=== PATIENT | female | born 1970 | race Caucasian/White ===

== ENCOUNTER 2018-01-26 11:12 | Emergency (ER) | payer MEDICARE, OTHER ==
[~2018-01-26] VITALS: Ht 149.9 cm; Wt 50.0 kg
[~2018-01-26 11:12] MED LIST: AMIT25 PO; AMLO5 PO; CLON.5 PO; GABA300 PO; METO10TA PO; PANT20 PO; VENL75XR PO
[2018-01-26 11:35] VITALS: BP 129/79; PULSE 94; RESP 18; TEMP 98.4; O2SAT 100
[2018-01-26] MEDS ORDERED: HYDR5TAB64 PO (15:30)
[2018-01-26] MEDS ORDERED: LORA1TAB12 PO (15:30)
[2018-01-26] MEDS ORDERED: METO1TAB9 PO (15:30)
[2018-01-26] MEDS ORDERED: DIVA250ER PO (15:30)
[2018-01-26] MEDS ORDERED: HYDR-3583 PO (15:30)
[2018-01-26] MEDS ORDERED: LEXA20TA PO (15:30)
[2018-01-26] MEDS ORDERED: DILA100C PO (15:30)
[2018-01-26] MEDS ORDERED: BUTA1CAP PO (15:30)
[2018-01-26] MEDS ORDERED: AMLO10TA2 PO (15:30)
[2018-01-26 15:32] VITALS: BP 144/83; PULSE 97; RESP 16; O2SAT 100
[2018-01-26] MEDS ORDERED: SODIUM CHLOR 0.9% 1000 ML INJ 1,000 ML IV ONE (15:37)
[2018-01-26] MEDS ORDERED: SODIUM CHLORIDE 0.9% FLUSH 10 ML FLUSH IVF PRN (15:45)
[2018-01-26] MEDS ORDERED: diphenhydrAMINE HCL 50 MG/ML VIAL IVP ONE (15:45)
[2018-01-26] MEDS ORDERED: KETOROLAC TROMETHAMINE 30 MG/ML (IVP) VIAL IVP ONE (15:45)
[2018-01-26] MEDS ORDERED: METOCLOPRAMIDE HCL 10 MG/2 ML VIAL IVP ONE (15:45)
--- NOTE | 2018-01-26 15:52 | PD ---
HPI Chief Complaint: Headache Time Seen by Provider: 15:28 Travel History International Travel<30 days: No Contact w/Intl Traveler<30days: No Traveled to known affect area: No History of Present Illness HPI Patient is a 47-year-old female presents emergency department for evaluation of headache with vomiting 2 days. Patient states she has a history of headaches in similar, she states she has been taking her Fioricet at home, this has not been providing any relief. She is also on Depakote and phenytoin for seizure disorder. States is not a thunderclap presentation no radiation down her neck, no focalized weakness no visual difficulties. States symptoms are moderate, similar to any other headache she is ever had, associated signs and symptoms context as above PFSH Past Medical History Hx Anticoagulant Therapy: Yes (PLAVIX) Asthma: No Blood Disorders: No Bipolar Disorder: Yes Anxiety: Yes Depression: Yes Heart Rhythm Problems: No Cancer: Yes (ovarian in 2002) Cardiovascular Problems: Yes High Cholesterol: No Chemotherapy: No Chest Pain: No Congestive Heart Failure: No Cerebrovascular Accident: Yes (TIA 2006, 2008) Diabetes: No Diminished Hearing: No Endocrine: No Genitourinary: No Headaches: Yes (Patient reports "severe headaches") Hypertension: Yes Insomnia: Yes Musculoskeletal: Yes Neurologic: Yes Psychiatric: Yes (PTSD , BIPOLAR DISORDER) Reproductive: Yes Respiratory: No Immunizations Current: Yes Migraines: Yes Radiation Therapy: No Seizures: Yes (History is noted in medical records.) Thyroid Disease: No ?: Not Menopausal: Yes : 3 Para: 2 Miscarriage: 1 : 0 Tubal Ligation: Yes Past Surgical History AICD: No Section: Yes (x1) Cholecystectomy: Yes Ear Surgery: Yes (Tumor left side - 1985; Reconstructed right side - 1989) Gynecologic Surgery: Yes (HYSTERECTOMY) Hysterectomy: Yes (2004) Other Surgery: Yes (SEE MEDICAL RECORD) Social History Alcohol Use: No Tobacco Use: Yes Substance Use: Yes (did not specify) Allergies-Medications (Allergen,Severity, Reaction): Coded Allergies: penicillin G (Unverified Allergy, Severe, Rash, 01/26/18) Per pt. tramadol (Unverified Allergy, Severe, Hives, 01/26/18) sulfamethoxazole (Verified Allergy, Unknown, Hives, 01/26/18) trimethoprim (Verified Allergy, Unknown, Hives, 01/26/18) Reported Meds & Prescriptions Reported Meds & Active Scripts Active Reported Hydrocodone-Acetamin 10-325 mg (Hydrocodone/Acetaminophen) 10 Mg-325 Mg Tablet 1 Tab PO QID Fioricet (Ujhgdgiheo-Pfipmtohkkaah-Kxjzttkl) 50-300-40 Mg Cap 2 Cap PO Q4H PRN Hydrocortisone 5 Mg Tab 5 Mg PO TID Take with food to decrease GI upset Depakote ER (Divalproex Sodium) 250 Mg Tigist 250 Mg PO DAILY Dilantin (Phenytoin Extended) 100 Mg Cap 100 Mg PO TID Metoprolol Succinate ER 24 HR (Metoprolol Succinate) 50 Mg Tab 50 Mg PO DAILY Amlodipine (Amlodipine Besylate) 10 Mg Tab 10 Mg PO DAILY Lorazepam 1 Mg Tab 1 Mg PO BID PRN Lexapro (Escitalopram Oxalate) 20 Mg Tab 20 Mg PO DAILY Review of Systems Except as stated in HPI: all other systems reviewed are Neg Physical Exam Narrative GENERAL: 24-year-old female well-developed well-nourished no obvious distress. SKIN: Focused skin assessment warm/dry. HEAD: Atraumatic. Normocephalic. EYES: Pupils equal and round. No scleral icterus. No injection or drainage. Funduscopy normal bilaterally. ENT: No nasal bleeding or discharge. Mucous membranes pink and moist. NECK: Trachea midline. No JVD. CARDIOVASCULAR: Regular rate and rhythm. No murmur appreciated. RESPIRATORY: No accessory muscle use. Clear to auscultation. Breath sounds equal bilaterally. GASTROINTESTINAL: Abdomen soft, non-tender, nondistended. Hepatic and splenic margins not palpable. MUSCULOSKELETAL: No obvious deformities. No clubbing. No cyanosis. No edema. NEUROLOGICAL: Awake and alert. Cranial nerves II through XII are grossly intact and nonfocal 5 out of 5 strength in all 4 extremities, cerebellar testing negative. PSYCHIATRIC: Appropriate mood and affect; insight and judgment normal. Data Data Last Documented VS Vital Signs Date Time Temp Pulse Resp B/P (MAP) Pulse Ox O2 Delivery O2 Flow Rate FiO2 01/26/18 19:03 01/26/18 15:32 97 16 100 Room Air 01/26/18 11:35 98.4 Orders Orders Complete Blood Count With Diff (01/26/18 15:37) Basic Metabolic Panel (Bmp) (01/26/18 15:37) Phenytoin (Dilantin) (01/26/18 15:37) Valproic Acid (Depakene) (01/26/18 15:37) Ecg Monitoring (01/26/18 15:37) Iv Access Insert/Monitor (01/26/18 15:37) Oximetry (01/26/18 15:37) Sodium Chloride 0.9% Flush (Ns Flush) (01/26/18 15:45) Ketorolac Inj (Toradol Inj) (01/26/18 15:45) Diphenhydramine Inj (Benadryl Inj) (01/26/18 15:45) Metoclopramide Inj (Reglan Inj) (01/26/18 15:45) Sodium Chlor 0.9% 1000 Ml Inj (Ns 1000 M (01/26/18 15:37) Ct Brain W/O Iv Contrast(Rout) (01/26/18 ) Ed Discharge Order (01/26/18 18:41) Labs Laboratory Tests Test 01/26/18 15:55 White Blood Count 8.2 TH/MM3 Red Blood Count 4.59 MIL/MM3 Hemoglobin 14.3 GM/DL Hematocrit 41.9 % Mean Corpuscular Volume 91.2 FL Mean Corpuscular Hemoglobin 31.2 PG Mean Corpuscular Hemoglobin Concent 34.3 % Red Cell Distribution Width 13.9 % Platelet Count 366 TH/MM3 Mean Platelet Volume 8.2 FL Neutrophils (%) (Auto) 57.7 % Lymphocytes (%) (Auto) 32.5 % Monocytes (%) (Auto) 7.5 % Eosinophils (%) (Auto) 0.9 % Basophils (%) (Auto) 1.4 % Neutrophils # (Auto) 4.8 TH/MM3 Lymphocytes # (Auto) 2.7 TH/MM3 Monocytes # (Auto) 0.6 TH/MM3 Eosinophils # (Auto) 0.1 TH/MM3 Basophils # (Auto) 0.1 TH/MM3 CBC Comment DIFF FINAL Differential Comment Blood Urea Nitrogen 6 MG/DL Creatinine 0.83 MG/DL Random Glucose 91 MG/DL Calcium Level 9.7 MG/DL Sodium Level 141 MEQ/L Potassium Level 4.5 MEQ/L Chloride Level 106 MEQ/L Carbon Dioxide Level 25.6 MEQ/L Anion Gap 9 MEQ/L Estimat Glomerular Filtration Rate 74 ML/MIN Phenytoin (Dilantin) Level 14.5 MCG/ML Valproic Acid (Depakene) Level 62 MCG/ML [facility] Medical Decision Making Medical Screen Exam Complete: Yes Emergency Medical Condition: Yes Differential Diagnosis Headache, migraine, cluster headache, acute intracranial abnormality highly unlikely per Narrative Course Patient room to the emergency department, CT head negative, she was given pain medication is starting to feel better. Albeit she still has some headache. She was offered a lumbar puncture and after discussion of the risk benefits competitions and alternatives the patient declined at this time. Discussed need follow-up with a neurologist. Discussed symptomatic management and return to ED criteria. She stable for discharge Diagnosis Primary Impression: Headache Disposition: 01 DISCHARGE HOME Condition: Stable Zoltan Garsia MD Jan 26, 2018 15:52
[2018-01-26 16:24] LABS: AUTOMATED NEUTROPHIL # 4.8 TH/MM3 (1.8-7.7); BASOPHIL # 0.1 TH/MM3 (0-0.2); BASOPHIL % 1.4 % (0.0-2.0); EOSINOPHIL # 0.1 TH/MM3 (0-0.4); EOSINOPHIL % 0.9 % (0.0-4.0); HEMATOCRIT 41.9 % (35.0-46.0); HEMOGLOBIN 14.3 GM/DL (11.6-15.3); LYMPH % 32.5 % (9.0-44.0); LYMPHOCYTE # 2.7 TH/MM3 (1.0-4.8); MEAN CELL VOLUME 91.2 FL (80.0-100.0); MEAN CORPUSCULAR HEMOGLOBIN 31.2 PG (27.0-34.0); MEAN CORPUSCULAR HGB CONC 34.3 % (32.0-36.0); MEAN PLATELET VOLUME 8.2 FL (7.0-11.0); MONO % 7.5 % (0.0-8.0); MONOCYTE # 0.6 TH/MM3 (0-0.9); NEUT % 57.7 % (16.0-70.0); PLATELET COUNT 366 TH/MM3 (150-450); RED BLOOD COUNT 4.59 MIL/MM3 (4.00-5.30); RED CELL DISTRIBUTION WIDTH 13.9 % (11.6-17.2); WHITE BLOOD COUNT 8.2 TH/MM3 (4.0-11.0)
[2018-01-26 16:52] LABS: BICARBONATE 25.6 MEQ/L (21.0-32.0); CALCIUM 9.7 MG/DL (8.5-10.1); CREATININE 0.83 MG/DL (0.50-1.00); PHENYTOIN (DILANTIN) 14.5 MCG/ML (10.0-20.0)
--- NOTE | 2018-01-26 18:57 | RADRPT ---
EXAM DATE/TIME: 01/26/2018 18:33 [facility] COMPARISON: CT BRAIN W/O CONTRAST, January 19, 2016, 15:58. INDICATIONS : Headache X 6 days. RADIATION DOSE: 49.67 CTDIvol (mGy) MEDICAL HISTORY : Seizures. Hypertension. Cardiovascular diseaseCVA SURGICAL HISTORY : Hysterectomy. Cholecystectomy. ENCOUNTER: Initial ACUITY: 1 day PAIN SCALE: 7/10 LOCATION: cranial TECHNIQUE: Multiple contiguous axial images were obtained of the head. Using automated exposure control and adj ustment of the mA and/or kV according to patient size, radiation dose was kept as low as reasonably a chievable to obtain optimal diagnostic quality images. DICOM format image data is available electro nically for review and comparison. FINDINGS: CEREBRUM: The ventricles are normal for age. No evidence of midline shift, mass lesion, hemorrhage or acute in farction. No extra-axial fluid collections are seen. POSTERIOR FOSSA: The cerebellum and brainstem are intact. The 4th ventricle is midline. The cerebellopontine angle i s unremarkable. EXTRACRANIAL: The visualized portion of the orbits is intact. SKULL: The calvaria is intact. No evidence of skull fracture. CONCLUSION: 1. No acute findings. Remote small lacunar infarcts right basal ganglia. Rj Greer MD on January 26, 2018 at 18:53 Board Certified Radiologist. This report was verified electronically.
== END 2018-01-26 19:22 | disposition home or self-care (01) ==
LOC: NEPD 11:12
DX: R51 Headache (principal); I10 Essential (primary) hypertension; G40.909 Epilepsy, unspecified, not intractable, without status epilepticus; F31.9 Bipolar disorder, unspecified; F41.9 Anxiety disorder, unspecified; G47.00 Insomnia, unspecified; F19.90 Other psychoactive substance use, unspecified, uncomplicated; Z72.0 Tobacco use; Z86.73 Personal history of transient ischemic attack (TIA), and cerebral infarction without residual deficits
CPT/HCPCS: 70450; 80048; 80164; 80185; 85025; 96374; 96375; 99284; J1200; J1885; J2765; J7030

== ENCOUNTER 2018-03-10 12:06 | Observation (INO) | payer OTHER, MEDICAID ==
[~2018-03-10] VITALS: Ht 149.9 cm; Wt 50.5 kg
[~2018-03-10 12:06] MED LIST changes: -AMIT25 PO; +AMLO10TA2 PO; -AMLO5 PO; +BUTA1CAP PO; -CLON.5 PO; +DILA100C PO; +DIVA250ER PO; -GABA300 PO; +HYDR-3583 PO; +HYDR5TAB64 PO; +LEXA20TA PO; +LORA1TAB12 PO; -METO10TA PO; +METO1TAB9 PO; -PANT20 PO; -VENL75XR PO
[2018-03-10 12:20] VITALS: BP 118/58; PULSE 90; RESP 16; TEMP 98.2; O2SAT 100
[2018-03-10] MEDS ORDERED: LEVE500 PO ×2 (12:37)
[2018-03-10] MEDS ORDERED: AMIT50TA3 PO ×2 (12:37)
--- NOTE | 2018-03-10 12:44 | PD ---
HPI Chief Complaint: Headache Time Seen by Provider: 12:25 Travel History International Travel<30 days: No Contact w/Intl Traveler<30days: No Traveled to known affect area: No History of Present Illness HPI 47-year-old female with history of CVA, seizure disorder, hypertension, presents to the emergency department for evaluation of a headache 4 days 2 days. Patient is on Plavix. She denies any head trauma. Patient states that he has been generalized but is now associated with nausea. She has developed a right sided weakness which she states she had with her previous stroke but had improvement. She states now her right lower extremity is very weak and she is having to. She also reports a history of the right upper extremity. Headache is constant, throbbing severe. Denies any chest pain or tightness. Denies any recent illnesses, fever, chills. She has no other symptoms to report. PFSH Past Medical History Hx Anticoagulant Therapy: Yes (PLAVIX) Asthma: No Blood Disorders: No Bipolar Disorder: Yes Anxiety: Yes Depression: Yes Heart Rhythm Problems: No Cancer: Yes (ovarian in 2002) Cardiovascular Problems: Yes High Cholesterol: No Chemotherapy: No Chest Pain: No Congestive Heart Failure: No Diabetes: No Diminished Hearing: Yes (bilateral hearing aids) Endocrine: No Genitourinary: No Headaches: Yes (Patient reports "severe headaches") Hypertension: Yes Insomnia: Yes Medical other: Yes (adrenal deficiency) Musculoskeletal: Yes Neurologic: Yes Psychiatric: Yes (PTSD , BIPOLAR DISORDER) Reproductive: Yes Respiratory: No Immunizations Current: Yes Migraines: Yes Radiation Therapy: No Seizures: Yes (History is noted in medical records.) Thyroid Disease: Yes ("nodule on thyroid") Influenza Vaccination: No ?: Not Menopausal: Yes : 3 Para: 2 Miscarriage: 1 : 0 Tubal Ligation: Yes Past Surgical History AICD: No Section: Yes (x1) Cholecystectomy: Yes Ear Surgery: Yes (Tumor left side - 1985; Reconstructed right side - 1989) Gynecologic Surgery: Yes (HYSTERECTOMY) Hysterectomy: Yes (2004) Other Surgery: Yes (SEE MEDICAL RECORD) Social History Alcohol Use: No Tobacco Use: No Substance Use: Yes (did not specify) Allergies-Medications (Allergen,Severity, Reaction): Coded Allergies: penicillin G (Unverified Allergy, Severe, Rash, 03/10/18) Per pt. tramadol (Unverified Allergy, Severe, Hives, 03/10/18) sulfamethoxazole (Verified Allergy, Unknown, Hives, 03/10/18) trimethoprim (Verified Allergy, Unknown, Hives, 03/10/18) Reported Meds & Prescriptions Reported Meds & Active Scripts Active Reported Nitroglycerin SL (Nitroglycerin) 0.4 Mg Subl 0.4 Mg SL DIRECTED PRN ONE TABLET UNDER THE TONGUE NEEDED FOR CHEST PAIN, MAY REPEAT EVERY FIVE MINUTES FOR A TOTAL OF 3 DOSES OR CALL 911 IF NO RELIEF Aspirin Low Dose (Aspirin) 81 Mg Chew 81 Mg CHEW DAILY Plavix (Clopidogrel Bisulfate) 75 Mg Tab 75 Mg PO DAILY Keppra (Levetiracetam) 500 Mg Tab 500 Mg PO TID Amitriptyline (Amitriptyline HCl) 50 Mg Tab 50 Mg PO TID Hydrocodone-Acetamin 10-325 mg (Hydrocodone/Acetaminophen) 10 Mg-325 Mg Tablet 1 Tab PO QID Fioricet (Zdajcijhdl-Enzjkvmsinkpv-Tpvtazws) 50-300-40 Mg Cap 2 Cap PO Q4H PRN Hydrocortisone 5 Mg Tab 5 Mg PO TID Take with food to decrease GI upset Metoprolol Succinate ER 24 HR (Metoprolol Succinate) 50 Mg Tab 50 Mg PO DAILY Amlodipine (Amlodipine Besylate) 10 Mg Tab 10 Mg PO DAILY Lorazepam 1 Mg Tab 1 Mg PO BID PRN Lexapro (Escitalopram Oxalate) 20 Mg Tab 20 Mg PO DAILY Review of Systems Except as stated in HPI: all other systems reviewed are Neg Physical Exam Narrative GENERAL: Well-nourished female patient in no acute distress SKIN: Focused skin assessment warm/dry. HEAD: Atraumatic. Normocephalic. EYES: Pupils equal and round. EOMI no scleral icterus. No injection or drainage. ENT: No nasal bleeding or discharge. Mucous membranes pink and moist. NECK: Trachea midline. No JVD. No cervical spine tenderness CARDIOVASCULAR: Regular rate and rhythm. No murmur appreciated. RESPIRATORY: No accessory muscle use. Clear to auscultation. Breath sounds equal bilaterally. GASTROINTESTINAL: Abdomen soft, non-tender, nondistended. Hepatic and splenic margins not palpable. MUSCULOSKELETAL: No obvious deformities. No clubbing. No cyanosis. No edema. 3 out of 5 strength right lower extremity, 4 out of 5 right upper extremity. 5 + strength left upper and lower extremity. Negative pronator drift. NEUROLOGICAL: Awake and alert. No obvious cranial nerve deficits. Motor grossly within normal limits. Normal speech. PSYCHIATRIC: Appropriate mood and affect; insight and judgment normal. Data Data Last Documented VS Vital Signs Date Time Temp Pulse Resp B/P (MAP) Pulse Ox O2 Delivery O2 Flow Rate FiO2 03/10/18 12:20 98.2 90 16 118/58 (78) [address] Brain W/O Iv Contrast(Rout) (03/10/18 ) Electrocardiogram (03/10/18 12:42) Prothrombin Time / Inr (Pt) (03/10/18 12:42) Act Partial Throm Time (Ptt) (03/10/18 12:42) Complete Blood Count With Diff (03/10/18 12:42) Comprehensive Metabolic Panel (03/10/18 12:42) Ecg Monitoring (03/10/18 12:42) Iv Access Insert/Monitor (03/10/18 12:42) Oximetry (03/10/18 12:42) Morphine Inj (Morphine Inj) (03/10/18 12:45) Ondansetron Inj (Zofran Inj) (03/10/18 12:45) Sodium Chloride 0.9% Flush (Ns Flush) (03/10/18 12:45) Ketorolac Inj (Toradol Inj) (03/10/18 14:45) Admit Order (Ed Use Only) (03/10/18 15:45) Labs Laboratory Tests Test 03/10/18 12:43 White Blood Count 7.1 TH/MM3 Red Blood Count 4.30 MIL/MM3 Hemoglobin 13.2 GM/DL Hematocrit 38.6 % Mean Corpuscular Volume 89.8 FL Mean Corpuscular Hemoglobin 30.7 PG Mean Corpuscular Hemoglobin Concent 34.2 % Red Cell Distribution Width 13.4 % Platelet Count 273 TH/MM3 Mean Platelet Volume 8.2 FL Neutrophils (%) (Auto) 51.7 % Lymphocytes (%) (Auto) 35.9 % Monocytes (%) (Auto) 9.0 % Eosinophils (%) (Auto) 2.3 % Basophils (%) (Auto) 1.1 % Neutrophils # (Auto) 3.7 TH/MM3 Lymphocytes # (Auto) 2.6 TH/MM3 Monocytes # (Auto) 0.6 TH/MM3 Eosinophils # (Auto) 0.2 TH/MM3 Basophils # (Auto) 0.1 TH/MM3 CBC Comment DIFF FINAL Differential Comment Prothrombin Time 10.3 SEC Prothromb Time International Ratio 1.0 RATIO Activated Partial Thromboplast Time 19.8 SEC Blood Urea Nitrogen 12 MG/DL Creatinine 0.87 MG/DL Random Glucose 85 MG/DL Total Protein 7.4 GM/DL Albumin 4.2 GM/DL Calcium Level 8.5 MG/DL Alkaline Phosphatase 89 U/L Aspartate Amino Transf (AST/SGOT) 138 U/L Alanine Aminotransferase (ALT/SGPT) 119 U/L Total Bilirubin 0.3 MG/DL Sodium Level 144 MEQ/L Potassium Level 4.2 MEQ/L Chloride Level 110 MEQ/L Carbon Dioxide Level 24.4 MEQ/L Anion Gap 10 MEQ/L Estimat Glomerular Filtration Rate 70 ML/MIN [facility] Medical Decision Making Medical Screen Exam Complete: Yes Emergency Medical Condition: Yes Medical Record Reviewed: Yes Differential Diagnosis Migraine versus CVA versus TIA versus electrolyte abnormality Narrative Course 47-year-old female department for evaluation of headache with associated nausea and right upper and lower extremity weakness. The weakness began 2 days ago with a headache 4 days. She appears without distress. She does have noted weakness in the right upper and lower extremities. Laboratory Tests Test 03/10/18 12:43 White Blood Count 7.1 TH/MM3 Red Blood Count 4.30 MIL/MM3 Hemoglobin 13.2 GM/DL Hematocrit 38.6 % Mean Corpuscular Volume 89.8 FL Mean Corpuscular Hemoglobin 30.7 PG Mean Corpuscular Hemoglobin Concent 34.2 % Red Cell Distribution Width 13.4 % Platelet Count 273 TH/MM3 Mean Platelet Volume 8.2 FL Neutrophils (%) (Auto) 51.7 % Lymphocytes (%) (Auto) 35.9 % Monocytes (%) (Auto) 9.0 % Eosinophils (%) (Auto) 2.3 % Basophils (%) (Auto) 1.1 % Neutrophils # (Auto) 3.7 TH/MM3 Lymphocytes # (Auto) 2.6 TH/MM3 Monocytes # (Auto) 0.6 TH/MM3 Eosinophils # (Auto) 0.2 TH/MM3 Basophils # (Auto) 0.1 TH/MM3 CBC Comment DIFF FINAL Differential Comment Prothrombin Time 10.3 SEC Prothromb Time International Ratio 1.0 RATIO Activated Partial Thromboplast Time 19.8 SEC Blood Urea Nitrogen 12 MG/DL Creatinine 0.87 MG/DL Random Glucose 85 MG/DL Total Protein 7.4 GM/DL Albumin 4.2 GM/DL Calcium Level 8.5 MG/DL Alkaline Phosphatase 89 U/L Aspartate Amino Transf (AST/SGOT) 138 U/L Alanine Aminotransferase (ALT/SGPT) 119 U/L Total Bilirubin 0.3 MG/DL Sodium Level 144 MEQ/L Potassium Level 4.2 MEQ/L Chloride Level 110 MEQ/L Carbon Dioxide Level 24.4 MEQ/L Anion Gap 10 MEQ/L Estimat Glomerular Filtration Rate 70 ML/MIN Last Impressions Head CT 03/10/18 0000 Signed Impressions: Service Date/Time: Saturday, March 10, 2018 14:12 - CONCLUSION: No acute intracranial findings. Og Hill MD Lab work and imaging studies are reviewed. I have discussed the patient with my attending physician with the hospitalist. Patient will be admitted observation for further evaluation. Diagnosis Primary Impression: Right sided weakness Additional Impression: Headache Qualified Codes: R51 - Headache Admitting Information Admitting Physician Requests: Observation Condition: Stable Debi Nicole March 10, 2018 12:44
[2018-03-10] MEDS ORDERED: SODIUM CHLORIDE 0.9% FLUSH 10 ML FLUSH IVF PRN (12:45)
[2018-03-10] MEDS ORDERED: ONDANSETRON HCL 4 MG/2 ML VIAL IVP ONE (12:45)
[2018-03-10] MEDS ORDERED: MORPHINE SULFATE 4 MG/ML INJ IV PUSH ONE (12:45)
[2018-03-10] MEDS ORDERED: PLAV75TA29 PO ×2 (13:03)
[2018-03-10] MEDS ORDERED: NITR1SUB3 SL (13:03)
[2018-03-10] MEDS ORDERED: ASPI81CH6 CHEW ×2 (13:03)
[2018-03-10 13:13] LABS: AUTOMATED NEUTROPHIL # 3.7 TH/MM3 (1.8-7.7); BASOPHIL # 0.1 TH/MM3 (0-0.2); BASOPHIL % 1.1 % (0.0-2.0); EOSINOPHIL # 0.2 TH/MM3 (0-0.4); EOSINOPHIL % 2.3 % (0.0-4.0); HEMATOCRIT 38.6 % (35.0-46.0); HEMOGLOBIN 13.2 GM/DL (11.6-15.3); LYMPH % 35.9 % (9.0-44.0); LYMPHOCYTE # 2.6 TH/MM3 (1.0-4.8); MEAN CELL VOLUME 89.8 FL (80.0-100.0); MEAN CORPUSCULAR HEMOGLOBIN 30.7 PG (27.0-34.0); MEAN CORPUSCULAR HGB CONC 34.2 % (32.0-36.0); MEAN PLATELET VOLUME 8.2 FL (7.0-11.0); MONOCYTE # 0.6 TH/MM3 (0-0.9); NEUT % 51.7 % (16.0-70.0); PLATELET COUNT 273 TH/MM3 (150-450); RED CELL DISTRIBUTION WIDTH 13.4 % (11.6-17.2); WHITE BLOOD COUNT 7.1 TH/MM3 (4.0-11.0)
[2018-03-10 13:31] LABS: PROTHROMBIN TIME - PATIENT 10.3 SEC (9.8-11.6)
[2018-03-10 13:38] LABS: ALBUMIN 4.2 GM/DL (3.4-5.0); ALT (GPT) 119 U/L (10-53); AST (GOT) 138 U/L (15-37); BICARBONATE 24.4 MEQ/L (21.0-32.0); BLOOD UREA NITROGEN 12 MG/DL (7-18); CALCIUM 8.5 MG/DL (8.5-10.1); CHLORIDE 110 MEQ/L (98-107); CREATININE 0.87 MG/DL (0.50-1.00); GLOMERULAR FILTRATION RATE 70 ML/MIN (>89); GLUCOSE,RANDOM 85 MG/DL (74-106); SODIUM (NA) 144 MEQ/L (136-145)
[2018-03-10 13:41] LABS: ALKALINE PHOSPHATASE 89 U/L (45-117); TOTAL BILIRUBIN ADULT 0.3 MG/DL (0.2-1.0); TOTAL PROTEIN 7.4 GM/DL (6.4-8.2)
--- NOTE | 2018-03-10 14:39 | RADRPT ---
EXAM DATE/TIME: 03/10/2018 14:12 [facility] COMPARISON: CT BRAIN W/O CONTRAST, January 26, 2018, 18:33. INDICATIONS : Cephalgia, right sided weakness, dizziness, nausea and vomiting. RADIATION DOSE: 36.45 CTDIvol (mGy) MEDICAL HISTORY : Cerebrovascular disease. Seizures. Cardiovascular diseaseHypertension SURGICAL HISTORY : None. ENCOUNTER: Initial ACUITY: 1 day PAIN SCALE: 3/10 LOCATION: cranial TECHNIQUE: Multiple contiguous axial images were obtained of the head. Using automated exposure control and adj ustment of the mA and/or kV according to patient size, radiation dose was kept as low as reasonably a chievable to obtain optimal diagnostic quality images. DICOM format image data is available electro nically for review and comparison. FINDINGS: CEREBRUM: Old right caudate nucleus lacunar infarct. The ventricles are normal for age. No evidence of midline shift, mass lesion, hemorrhage or acute infarction. No extra-axial fluid collections are seen. POSTERIOR FOSSA: The cerebellum and brainstem are intact. The 4th ventricle is midline. The cerebellopontine angle i s unremarkable. EXTRACRANIAL: The visualized portion of the orbits is intact. SKULL: The calvaria is intact. No evidence of skull fracture. CONCLUSION: No acute intracranial findings. Og Hill MD on March 10, 2018 at 14:36 Board Certified Radiologist. This report was verified electronically.
[2018-03-10] MEDS ORDERED: KETOROLAC TROMETHAMINE 30 MG/ML (IVP) VIAL IV PUSH ONE (14:45)
[2018-03-10] MEDS ORDERED: GLUCAGON 1 MG/ML VIAL OTHER PRN (15:45)
[2018-03-10] MEDS ORDERED: ENALAPRILAT 1.25 MG/ML VIAL IV PUSH PRN (15:45)
[2018-03-10] MEDS ORDERED: DEXTROSE 50% IN WATER 50 ML VIAL(D50) IV PUSH PRN (15:45)
[2018-03-10] MEDS ORDERED: SODIUM CHLORIDE 0.9% FLUSH 10 ML FLUSH IV FLUSH PRN (15:45)
--- NOTE | 2018-03-10 15:54 | HHI.HP ---
[facility] Service [facility] Primary Care Physician Non-Staff Admission Diagnosis right weakness Diagnoses: Travel History International Travel<30 Days: No Contact w/Intl Traveler <30 Da: No Traveled to Known Affected Are: No History of Present Illness 47 year old right-handed female with history of CVA, seizure disorder , HTN, adrenal insufficiency, pituitary microadenoma, ovarian cancer, anxiety, and depression presenting with headache and right-sided weakness. She states she has had a progressively worsening headache for the past five days. Headache started gradually and she believes she was cleaning the house when it started. Her headache is associated with nausea and vomiting. She states her headache encompasses all over her head but the real throbbing is in the right temporal region. Her headache has been constant and has been unrelieved by Fioricet, hydrocodone, and OTC analgesics. She has taken Excedrin once a day for the past two days and Lortab 10-325 mg TID for the past three days. She rates the pain as 10/10. She states the Toradol helped bring it down to an 8. She denies neck stiffness or pain. She denies photophobia or phonophobia. She feels that this headache is different than her typical migraines in the past which are usually associated with light and sound sensitivity. She states starting two days ago she has had right sided upper and lower extremity weakness and reports it feels like "there's nothing to it." She states she feels like her right hand has been clumsy and she feels like a "drunk person." She denies numbness or paresthesias. She also endorses dizziness, lightheadedness, and slurred speech that started at the same time as the numbness. She denies gait instability or recent falls. She states she just doesn't feel right. She has had two CVAs (2006 , 2010) resulting in rehab stays but states that she has had no residual deficits. Review of Systems Constitutional: COMPLAINS OF: Dizziness, DENIES: Fatigue, Fever, Chills Endocrine: DENIES: Polydipsia, Polyuria Eyes: COMPLAINS OF: Blurred vision (Chronic), DENIES: Diplopia, Vision loss, Photosensitivity Ears, nose, mouth, throat: COMPLAINS OF: Hearing loss (Bilateral hearing aids) , DENIES: Hoarseness, Ear Pain, Running Nose Respiratory: DENIES: Cough, Shortness of breath Cardiovascular: DENIES: Chest pain, Palpitations, Syncope Gastrointestinal: DENIES: Abdominal pain, Black stools, Bloody stools, Constipation, Diarrhea, Nausea, Vomiting Genitourinary: DENIES: Urgency, Dysuria Musculoskeletal: DENIES: Stiffness, Neck pain Integumentary: DENIES: Rash Neurologic: COMPLAINS OF: Headache, Localized weakness, DENIES: Abnormal gait, Paresthesias, Seizures Psychiatric: DENIES: Anxiety, Mood changes, Depression Past Family Social History Past Medical History CVA (2006, 2010) Hypertension Ovarian cancer (diagnosed 2002) Hepatitis C Migraine headaches Seizure disorder Anxiety Depression Pituitary microadenoma Adrenal insufficiency 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) Thyroid nodule Carpal tunnel syndrome Past Surgical History Cardiac catheterization 2018 Cholecystectomy [place]-[facility] R hip surgery Tubal ligation L tumor removed from inner ear R tympanic membrane surgery Reported Medications Nitroglycerin SL (Nitroglycerin) 0.4 Mg Subl 0.4 Mg SL DIRECTED PRN Aspirin Low Dose (Aspirin) 81 Mg Chew 81 Mg CHEW DAILY Plavix (Clopidogrel Bisulfate) 75 Mg Tab 75 Mg PO DAILY Keppra (Levetiracetam) 500 Mg Tab 500 Mg PO TID Amitriptyline (Amitriptyline HCl) 50 Mg Tab 50 Mg PO TID Hydrocodone-Acetamin 10-325 mg (Hydrocodone/Acetaminophen) 10 Mg-325 Mg Tablet 1 Tab PO QID Fioricet (Jynrpihcmt-Cjimjitvydcoy-Neohqgno) 50-300-40 Mg Cap 2 Cap PO Q4H PRN Hydrocortisone 5 Mg Tab 5 Mg PO TID Metoprolol Succinate ER 24 HR (Metoprolol Succinate) 50 Mg Tab 50 Mg PO DAILY Amlodipine (Amlodipine Besylate) 10 Mg Tab 10 Mg PO DAILY Lorazepam 1 Mg Tab 1 Mg PO BID PRN Lexapro (Escitalopram Oxalate) 20 Mg Tab 20 Mg PO DAILY Allergies: Coded Allergies: penicillin G (Unverified Allergy, Severe, Rash, 03/10/18) Per pt. tramadol (Unverified Allergy, Severe, Hives, 03/10/18) sulfamethoxazole (Verified Allergy, Unknown, Hives, 03/10/18) trimethoprim (Verified Allergy, Unknown, Hives, 03/10/18) Active Ordered Medications Aspirin (Aspirin) 325 mg ONCE ONCE PO; Start 03/10/18 at 16:00; Stop 03/10/18 at 16:01; Status DC Dextrose (D50w (Vial) Inj) 50 ml UNSCH PRN IV PUSH; Start 03/10/18 at 15:45 Enalaprilat (Vasotec Inj) 1.25 mg Q4H PRN IV PUSH; Start 03/10/18 at 15:45 Glucagon (Glucagon Inj) 1 mg UNSCH PRN OTHER; Start 03/10/18 at 15:45 Insulin Aspart (NovoLOG SUPPLEMENTAL SCALE) 1 ACHS SQ; Start 03/10/18 at 17:00 Ketorolac Tromethamine (Toradol Inj) 30 mg ONCE ONCE IV PUSH Last administered on 03/10/18at 15:10; Admin Dose 30 MG; Start 03/10/18 at 14:45; Stop 03/10/18 at 14: 46; Status DC Lorazepam (Ativan Inj) 1 mg Q15M PRN IV PUSH; Start 03/10/18 at 16:00 Morphine Sulfate (Morphine Inj) 2 mg ONCE ONCE IV PUSH Last administered on 03/10at 12:57; Admin Dose 2 MG; Start 03/10/18 at 12:45; Stop 03/10/18 at 12:46; Status DC Ondansetron HCl (Zofran Inj) 4 mg ONCE ONCE IVP Last administered on 03/10/18at 12:56; Admin Dose 4 MG; Start 03/10/18 at 12:45; Stop 03/10/18 at 12:46; Status DC Sodium Chloride 1,000 ml @ 70 mls/hr [id number] IV; Start 03/10/18 at 15:44 Sodium Chloride (NS Flush) 2 ml BID IV FLUSH; Start 03/10/18 at 21:00 Sodium Chloride (NS Flush) 2 ml UNSCH PRN IV FLUSH; Start 03/10/18 at 15:45 Sodium Chloride (NS Flush) 2 ml UNSCH PRN IVF; Start 03/10/18 at 12:45; Stop 03/10/18 at 15:57; Status DC Family History Mother: alive, COPD, pulmonary fibrosis, dementia Father: , liver disease, CAD Social History Lives with Disabled EtOH: last use was over 6 years ago Tobacco: quit >1 year ago, prior was 1.5 PPD x 32 years Illicit drugs: denies Physical Exam Vital Signs Vital Signs Date Time Temp Pulse Resp B/P (MAP) Pulse Ox O2 Delivery O2 Flow Rate FiO2 03/10/18 12:20 98.2 90 16 118/58 (78) 100 Physical Exam GENERAL: This is a well-nourished, well-developed female, in no apparent distress. SKIN: No rashes, ecchymoses or lesions. Cool and dry. HEENT: Atraumatic. Normocephalic. No temporal or scalp tenderness. Pupils equal round and reactive. Extraocular motions intact. Horizontal nystagmus noted bilaterally with lateral gaze. No scleral icterus. No injection or drainage. Nose without bleeding, purulent drainage or septal hematoma. Throat without erythema, tonsillar hypertrophy or exudate. Uvula midline. Airway patent. NECK: Trachea midline. No JVD or lymphadenopathy. Supple, nontender, no meningeal signs. Negative Kernig's and Brudzinski signs. CARDIOVASCULAR: Regular rate and rhythm without murmurs, gallops, or rubs. RESPIRATORY: Clear to auscultation. Breath sounds equal bilaterally. No wheezes , rales, or rhonchi. GASTROINTESTINAL: Abdomen soft, non-tender, nondistended. No hepato-splenomegaly , or palpable masses. No guarding. MUSCULOSKELETAL: Extremities without clubbing, cyanosis, or edema. No joint tenderness, effusion, or edema noted. No calf tenderness. Negative Homans sign bilaterally. NEUROLOGICAL: Awake and alert. Cranial nerves II through XII intact. Sensation to touch diminished over R face, RUE, and RLE when compared to left. RUE and RLE strength 4/5, LUE and LLE strength 5/5. Negative Babinski. Negative pronator drift. Normal speech. Laboratory Laboratory Tests Test 03/10/18 12:43 White Blood Count 7.1 Red Blood Count 4.30 Hemoglobin 13.2 Hematocrit 38.6 Mean Corpuscular Volume 89.8 Mean Corpuscular Hemoglobin 30.7 Mean Corpuscular Hemoglobin Concent 34.2 Red Cell Distribution Width 13.4 Platelet Count 273 Mean Platelet Volume 8.2 Neutrophils (%) (Auto) 51.7 Lymphocytes (%) (Auto) 35.9 Monocytes (%) (Auto) 9.0 Eosinophils (%) (Auto) 2.3 Basophils (%) (Auto) 1.1 Neutrophils # (Auto) 3.7 Lymphocytes # (Auto) 2.6 Monocytes # (Auto) 0.6 Eosinophils # (Auto) 0.2 Basophils # (Auto) 0.1 CBC Comment DIFF FINAL Differential Comment Prothrombin Time 10.3 Prothromb Time International Ratio 1.0 Activated Partial Thromboplast Time 19.8 Blood Urea Nitrogen 12 Creatinine 0.87 Random Glucose 85 Total Protein 7.4 Albumin 4.2 Calcium Level 8.5 Alkaline Phosphatase 89 Aspartate Amino Transf (AST/SGOT) 138 Alanine Aminotransferase (ALT/SGPT) 119 Total Bilirubin 0.3 Sodium Level 144 Potassium Level 4.2 Chloride Level 110 Carbon Dioxide Level 24.4 Anion Gap 10 Estimat Glomerular Filtration Rate 70 Result Diagram: 03/10/18 1243 03/10/[address] 03/10/18 0000 Signed Impressions: Service Date/Time: Saturday, March 10, 2018 14:12 - CONCLUSION: No acute intracranial findings. Og Hill MD Caprini VTE Risk Assessment Caprini VTE Risk Assessment: Mod/High Risk (score >= 2) Caprini Risk Assessment Model Point Value = 1 Point Value = 2 Point Value = 3 Point Value = 5 Age 41-60 Minor surgery BMI > 25 kg/m2 Swollen legs Varicose veins or History of unexplained or recurrent spontaneous Oral contraceptives or hormone replacement Sepsis (< 1 month) Serious lung disease, including pneumonia (< 1 month) Abnormal pulmonary function Acute myocardial infarction Congestive heart failure (< 1 month) History of inflammatory bowel disease Medical patient at bed rest Age 61-74 Arthroscopic surgery Major open surgery (> 45 min) Laparoscopic surgery (> 45 min) Malignancy Confined to bed (> 72 hours) Immobilizing plaster cast Central venous access Age >= 75 History of VTE Family history of VTE Factor V Leiden Prothrombin [id number] Lupus anticoagulant Anticardiolipin antibodies Elevated serum homocysteine Heparin-induced thrombocytopenia Other congenital or acquired thrombophilia Stroke (< 1 month) Elective arthroplasty Hip, pelvis, or leg fracture Acute spinal cord injury (< 1 month) Prophylaxis Regimen Total Risk Factor Score Risk Level Prophylaxis Regimen 0-1 Low Early ambulation 2 Moderate Order ONE of the following: *Sequential Compression Device (SCD) *Heparin 5000 units SQ BID 3-4 Higher Order ONE of the following medications: *Heparin 5000 units SQ TID *Enoxaparin/Lovenox 40 mg SQ daily (WT < 150 kg, CrCl > 30 mL/min) *Enoxaparin/Lovenox 30 mg SQ daily (WT < 150 kg, CrCl > 10-29 mL/min) *Enoxaparin/Lovenox 30 mg SQ BID (WT < 150 kg, CrCl > 30 mL/min) AND/OR *Sequential Compression Device (SCD) 5 or more Highest Order ONE of the following medications: *Heparin 5000 units SQ TID (Preferred with Epidurals) *Enoxaparin/Lovenox 40 mg SQ daily (WT < 150 kg, CrCl > 30 mL/min) *Enoxaparin/Lovenox 30 mg SQ daily (WT < 150 kg, CrCl > 10-29 mL/min) *Enoxaparin/Lovenox 30 mg SQ BID (WT < 150 kg, CrCl > 30 mL/min) AND *Sequential Compression Device (SCD) Assessment and Plan Problem List: (1) Headache ICD Code: R51 - Headache Status: Chronic (2) Right sided weakness ICD Code: R53.1 - Weakness Status: Acute Assessment and Plan 47 year old female with history of CVA x 2, HTN, seizure disorder, migraines, pituitary microadenoma, adrenal insufficiency, anxiety, and depression presenting with intractable headache x 5 days and new onset right- sided weakness x 2 days. She is also found to have elevated LFTs new from prior visits. 1. Intractable headache - CT scan negative - Atypical from usual migraine headaches - Pain control - NS at 70 ml/hr - Zofran PRN - Neurology consulted - May consider LP 2. Right-sided weakness - New onset and has been present x 2 days - CT head negative - Stroke work-up with MRI, MRA head/neck, echo - TSH within normal limits - PT/OT - Consult neuro to further evaluate 3. Transaminitis - AST and ALT 138 and 119, respectively - Denies EtOH use - Possibly from excessive Tylenol - Tylenol level 16.5 (normal range under 30) - Avoid hepatotoxic agents - Check hepatitis panel 4. Seizure disorder - Continue Keppra - Seizure precautions - Ativan PRN 5. Pituitary microadenoma - Check prolactin level - Checking MRI 6. Adrenal insufficiency - Continue hydrocortisone 7. HTN - Continue home metoprolol and Norvasc 8. Anxiety/depression - Continue home meds DVT prophylaxis: Lovenox Code Status FULL Discussed Condition With Dr. Sevilla and patient Problem Qualifiers (1) Headache: Qualified Codes: R51 - Headache Ivanna Silva MD March 10, 2018 15:54
[2018-03-10] MEDS ORDERED: ASPIRIN 325 MG TAB PO ONE (16:00)
[2018-03-10] MEDS ORDERED: LORazepam 2 MG/ML VIAL IV PUSH PRN (16:00)
--- NOTE | 2018-03-10 16:05 | PD ---
Physical Exam Narrative GENERAL: 47-year-old female in no apparent distress SKIN: Focused skin assessment warm/dry. HEAD: Atraumatic. Normocephalic. EYES: Pupils equal and round. No scleral icterus. No injection or drainage. ENT: No nasal bleeding or discharge. Mucous membranes pink and moist. NECK: Trachea midline. No JVD. CARDIOVASCULAR: Regular rate and rhythm. No murmur appreciated. RESPIRATORY: No accessory muscle use. No increased effort MUSCULOSKELETAL: No obvious deformities. No clubbing. No cyanosis. NEUROLOGICAL: Awake and alert. Moves all extremities. Normal speech. PSYCHIATRIC: Appropriate mood and affect; insight and judgment normal. Data Data Last Documented VS Vital Signs Date Time Temp Pulse Resp B/P (MAP) Pulse Ox O2 Delivery O2 Flow Rate FiO2 03/10/18 12:20 98.2 90 16 118/58 (78) [address] Brain W/O Iv Contrast(Rout) (03/10/18 ) Electrocardiogram (03/10/18 12:42) Prothrombin Time / Inr (Pt) (03/10/18 12:42) Act Partial Throm Time (Ptt) (03/10/18 12:42) Complete Blood Count With Diff (03/10/18 12:42) Comprehensive Metabolic Panel (03/10/18 12:42) Ecg Monitoring (03/10/18 12:42) Iv Access Insert/Monitor (03/10/18 12:42) Oximetry (03/10/18 12:42) Morphine Inj (Morphine Inj) (03/10/18 12:45) Ondansetron Inj (Zofran Inj) (03/10/18 12:45) Sodium Chloride 0.9% Flush (Ns Flush) (03/10/18 12:45) Ketorolac Inj (Toradol Inj) (03/10/18 14:45) Admit Order (Ed Use Only) (03/10/18 15:45) Labs Laboratory Tests Test 03/10/18 12:43 White Blood Count 7.1 TH/MM3 Red Blood Count 4.30 MIL/MM3 Hemoglobin 13.2 GM/DL Hematocrit 38.6 % Mean Corpuscular Volume 89.8 FL Mean Corpuscular Hemoglobin 30.7 PG Mean Corpuscular Hemoglobin Concent 34.2 % Red Cell Distribution Width 13.4 % Platelet Count 273 TH/MM3 Mean Platelet Volume 8.2 FL Neutrophils (%) (Auto) 51.7 % Lymphocytes (%) (Auto) 35.9 % Monocytes (%) (Auto) 9.0 % Eosinophils (%) (Auto) 2.3 % Basophils (%) (Auto) 1.1 % Neutrophils # (Auto) 3.7 TH/MM3 Lymphocytes # (Auto) 2.6 TH/MM3 Monocytes # (Auto) 0.6 TH/MM3 Eosinophils # (Auto) 0.2 TH/MM3 Basophils # (Auto) 0.1 TH/MM3 CBC Comment DIFF FINAL Differential Comment Prothrombin Time 10.3 SEC Prothromb Time International Ratio 1.0 RATIO Activated Partial Thromboplast Time 19.8 SEC Blood Urea Nitrogen 12 MG/DL Creatinine 0.87 MG/DL Random Glucose 85 MG/DL Total Protein 7.4 GM/DL Albumin 4.2 GM/DL Calcium Level 8.5 MG/DL Alkaline Phosphatase 89 U/L Aspartate Amino Transf (AST/SGOT) 138 U/L Alanine Aminotransferase (ALT/SGPT) 119 U/L Total Bilirubin 0.3 MG/DL Sodium Level 144 MEQ/L Potassium Level 4.2 MEQ/L Chloride Level 110 MEQ/L Carbon Dioxide Level 24.4 MEQ/L Anion Gap 10 MEQ/L Estimat Glomerular Filtration Rate 70 ML/MIN MDM Supervised Visit with SHERI: Yes Interpretation(s) CBC & BMP Diagram 03/10/18 12:43 Total Protein 7.4, Albumin 4.2, Calcium Level 8.5, Alkaline Phosphatase 89, Aspartate Amino Transf (AST/SGOT) 138 H, Alanine Aminotransferase (ALT/SGPT) 119 H, Total Bilirubin 0.3 Last [address] 03/10/18 0000 Signed Impressions: Service Date/Time: Saturday, March 10, 2018 14:12 - CONCLUSION: No acute intracranial findings. Og Hill MD Narrative Course I, Dr. sevilla, have reviewed the advance practice practitioner's documentation and am in agreement, met with the patient face to face, made the diagnosis, and the medical decision making was done by me. *My assessment and Findings: 47 y/o female presents with right-sided weakness. Symptoms have improved. Patient follows with Dr. Salinas. She takes a baby aspirin and Plavix for history of stroke. she was given full dose of aspirin here And agrees to admission for further care Physician Communication Physician Communication dr matamoros agrees to admit Diagnosis Primary Impression: Right sided weakness Additional Impression: Headache Qualified Codes: R51 - Headache Admitting Information Admitting Physician Requests: Observation Condition: Stable Mica Sevilla MD March 10, 2018 16:05
[2018-03-10 16:24] LABS: ACETAMINOPHEN 16.5 MCG/ML (10.0-30.0)
[2018-03-10] MEDS: SODIUM CHLOR 0.9% 1000 ML INJ 1,000 ML IV SCH (16:25)
[2018-03-10 16:27] VITALS: BP 138/76; PULSE 69; RESP 21; O2SAT 99
[2018-03-10] MEDS ORDERED: ACETAMINOPHEN/HYDROcodone 325 MG/5 MG TAB PO PRN ×2 (16:30)
[2018-03-10] MEDS: INSULIN ASPART SUPPLEMENTAL SCALE SQ SCH ×2 (17:00→20:24)
[2018-03-10 17:23] VITALS: BP 130/82; PULSE 72; RESP 18; TEMP 98.5; O2SAT 97
[2018-03-10] MEDS: levETIRAcetam 500 MG TAB PO SCH (17:44)
[2018-03-10] MEDS: AMITRIPTYLINE HCL 50 MG TAB PO SCH (17:45)
[2018-03-10] MEDS: HYDROmorphone HCL PF 0.5 MG/0.5 ML SYRINGE IV PUSH PRN ×2 (17:45→21:50)
[2018-03-10] MEDS: HYDROCORTISONE 10 MG TAB PO SCH (17:45)
[2018-03-10] MEDS: ENOXAPARIN SODIUM 40 MG/0.4 ML SYRINGE SQ SCH (17:46)
--- NOTE | 2018-03-10 19:05 | RADRPT ---
EXAM DATE/TIME: 03/10/2018 18:20 [facility] COMPARISON: No previous studies available for comparison. INDICATIONS : Migraine. MEDICAL HISTORY : Cerebrovascular disease. Seizures. Cardiovascular disease. Hypertension. SURGICAL HISTORY : None. ENCOUNTER: Initial ACUITY: 1 day PAIN SCORE: 0/10 LOCATION: Bilateral neck. PEAK SYSTOLIC VELOCITIES (cm/sec): ICA/CCA RATIO: Right: 1.0 Left: 0.9 ICA: Right: 99.6 Left: 83.7 CCA: Right: 99.5 Left: 95.2 ECA: Right: 98.7 Left: 90.6 VERTEBRAL: Right: 46.0 antegrade Left: 60.3 antegrade Elevated flow velocities and ICA/CCA ratios have been found to correlate with increased degrees of vessel stenosis, calculated as percentage of diameter relative to a normal segment of distal ICA/CCA FINDINGS: RIGHT CAROTID: No significant stenosis is visualized. The waveforms are within normal limits. LEFT CAROTID: No significant stenosis is visualized. The waveforms are within normal limits. VERTEBRAL ARTERIES: Antegrade flow is seen in both vertebral arteries. MISCELLANEOUS: None. CONCLUSION: No acute disease. Zoltan Chawla MD on March 10, 2018 at 19:03 Board Certified Radiologist. This report was verified electronically.
[2018-03-10 20:12] VITALS: BP 127/63; PULSE 77; RESP 18; TEMP 98.8; O2SAT 95
[2018-03-10] MEDS: LORazepam 1 MG TAB PO PRN (20:32)
[2018-03-10] MEDS: SODIUM CHLORIDE 0.9% FLUSH 10 ML FLUSH IV FLUSH SCH (21:49)
[2018-03-11] VITALS (7 sets, daily range): BP systolic 116–136; BP diastolic 62–73; PULSE 58–70; RESP 16–20; TEMP 97.6–98.7; O2SAT 96–98
[2018-03-11] MEDS: KETOROLAC TROMETHAMINE 30 MG/ML (IVP) VIAL IV PUSH PRN ×2 (02:46→15:24)
[2018-03-11] MEDS: SODIUM CHLOR 0.9% 1000 ML INJ 1,000 ML IV SCH ×2 (05:17→20:20)
[2018-03-11] MEDS: HYDROmorphone HCL PF 0.5 MG/0.5 ML SYRINGE IV PUSH PRN ×2 (05:19→10:24)
[2018-03-11] MEDS: INSULIN ASPART SUPPLEMENTAL SCALE SQ SCH ×4 (08:00→21:00)
--- NOTE | 2018-03-11 08:46 | HHI.PR ---
Subjective Remarks Follow up for headache, right sided numbness and weakness. The patient reports continued global headache, worse at right frontotemporal region, described as constant 8/10 throbbing/pounding pains, associated with nausea, no vomiting. Denies photophobia. She is requesting IV pain medications, states oxycodone and toradol isn't working. She reports continued right arm and leg numbness and weakness, unchanged overnight. She states her right eye vision is also slightly blurry. She has not yet attempted ambulation. She believes her speech is slurred at times. Denies any other medical complaints including no chest pain, palpitations, shortness of breath. Objective Vitals Vital Signs Date Time Temp Pulse Resp B/P (MAP) Pulse Ox O2 Delivery O2 Flow Rate FiO2 03/11/18 07:49 98.2 70 20 135/73 (93) 96 03/11/18 07:49 98.2 70 20 135/73 (93) 98 03/11/18 03:57 98.7 58 16 119/66 (83) 97 03/11/18 03:32 16 03/11/18 00:23 97.6 62 16 117/62 (80) 97 03/10/18 23:27 21 03/10/18 22:20 16 03/10/18 20:12 98.8 77 18 127/63 (84) 95 03/10/18 20:00 16 03/10/18 18:34 18 03/10/18 17:23 98.5 72 18 130/82 (98) 97 03/10/18 16:59 03/10/18 16:27 69 21 138/76 (96) 99 Room Air 03/10/18 12:20 98.2 90 16 118/58 (78) 100 Result Diagram: 03/10/18 1243 03/10/18 1243 Imaging Last Impressions Head Magnetic Resonance Angiography 03/11/18 0000 Signed Impressions: Service Date/Time: Sunday, March 11, 2018 08:14 - CONCLUSION: Stable examination. No acute intracranial vascular abnormality is identified Cachorro Cramer MD Brain MRI 03/11/18 0000 Signed Impressions: Service Date/Time: Sunday, March 11, 2018 08:14 - CONCLUSION: No acute intracranial abnormality is identified. There is stable change in the right periventricular white matter and right basal ganglia. Cachorro Cramer MD Head CT 03/10/18 0000 Signed Impressions: Service Date/Time: Saturday, March 10, 2018 14:12 - CONCLUSION: No acute intracranial findings. Og Hill MD Carotid Artery Ultrasound 03/10/18 0000 Signed Impressions: Service Date/Time: Saturday, March 10, 2018 18:20 - CONCLUSION: No acute disease. Zoltan Chawla MD Objective Remarks GENERAL: Well-nourished, well-developed middle aged female patient in [facility]. SKIN: Warm and dry. No rash. HEENT: Normocephalic. Atraumatic.Pupils equal and round. EOMI. Mucous membranes pink and moist. NECK: Supple. Trachea midline. CARDIOVASCULAR: Regular rate and rhythm. No murmur appreciated. RESPIRATORY: No accessory muscle use. Clear to auscultation. Breath sounds equal bilaterally. GASTROINTESTINAL: Abdomen soft, non-tender, nondistended. Normoactive bowel sounds x4. MUSCULOSKELETAL: No obvious deformities. Extremities without clubbing, cyanosis , or edema. NEUROLOGICAL: Awake and alert. No obvious cranial nerve deficits. 4/5 strength RUE/RLE, 5/5 strength LUE/LLE. Normal speech. No facial droop, lid lag, or tongue deviation. Symmetrical nasolabial folds. PSYCHIATRIC: Appropriate mood and affect; insight and judgment normal. Medications and IVs Current Medications Medications (Trade) Dose Ordered Sig/Bambi Route Start Time Stop Time Status Last Admin (NS Flush) 2 ml BID IV FLUSH 03/10/18 21:00 03/10/18 21:49 (NS Flush) 2 ml UNSCH PRN IV FLUSH 03/10/18 15:45 Sodium Chloride 1,000 ml @ 70 mls/hr [id number] IV 03/10/18 15:44 03/11/18 05:17 (Vasotec Inj) 1.25 mg Q4H PRN IV PUSH 03/10/18 15:45 (NovoLOG SUPPLEMENTAL SCALE) 1 ACHS SQ 03/10/18 17:00 (D50w (Vial) Inj) 50 ml UNSCH PRN IV PUSH 03/10/18 15:45 (Glucagon Inj) 1 mg UNSCH PRN OTHER 03/10/18 15:45 (Ativan Inj) 1 mg Q15M PRN IV PUSH 03/10/18 16:00 03/11/18 08:03 (Toradol Inj) 30 mg Q6H PRN IV PUSH 03/10/18 16:30 03/15/18 16:28 03/11/18 02:46 (Dilaudid Pf Inj) 0.5 mg Q4H PRN IV PUSH 03/10/18 16:30 03/11/18 05:19 (Roxicodone) 5 mg Q4H PRN PO 03/10/18 16:45 (Roxicodone) 10 mg Q4H PRN PO 03/10/18 16:45 03/11/18 08:03 (Elavil) 50 mg TID PO 03/10/18 18:00 03/10/18 17:45 (Norvasc) 10 mg DAILY PO 03/11/18 09:00 (Aspirin Chew) 81 mg DAILY CHEW 03/11/18 09:00 (Plavix) 75 mg DAILY PO 03/11/18 09:00 (Lexapro) 20 mg DAILY PO 03/11/18 09:00 (Cortef) 5 mg TID PO 03/10/18 18:00 03/10/18 17:45 (Keppra) 500 mg TID PO 03/10/18 18:00 03/10/18 17:44 (Ativan) 1 mg BID PRN PO 03/10/18 16:45 03/10/18 20:32 (Toprol Xl) 50 mg DAILY PO 03/11/18 09:00 (Lovenox Inj) 40 mg Q24H SQ 03/10/18 18:00 03/10/18 17:46 A/P Problem List: (1) Headache ICD Code: R51 - Headache Status: Chronic (2) Right sided weakness ICD Code: R53.1 - Weakness Status: Acute Assessment and Plan 47 year old female with history of CVA x 2, HTN, seizure disorder, migraines, pituitary microadenoma, adrenal insufficiency, anxiety, and depression presenting with intractable headache x 5 days and new onset right- sided weakness x 2 days. She is also found to have elevated LFTs new from prior visits. Intractable headache: patient reports symptoms not typical of previous migraine headaches. -Head CT reviewed, no acute findings -Continue pain control with oxycodone prn, IV dilaudid prn breakthrough pain -Give IVF hydration, antiemetics prn -Neurology consulted -May consider LP if symptoms persist Right-sided weakness: New onset, symptoms present x2days. Eval for CVA. May be secondary to complex migraine. TSH wnl. -Head CT negative as above -Brain MRI/MRA reviewed, no acute findings -Carotid U/S unremarkable, no stenosis -Check echocardiogram -Consult PT/OT -Consult neurology, appreciate recommendations Transaminitis: AST and ALT 138 and 119. Denies EtOH use -Possibly from excessive Tylenol however level 16.5 (normal range under 30) -Avoid hepatotoxic agents -Hepatitis panel negative -LFTs trending down, continue to monitor, repeat as outpatient and f/up with PCP Seizure disorder: chronic -Continue Keppra -Seizure precautions -Ativan PRN seizure Pituitary microadenoma: chronic -Check prolactin level -MRI unremarkable Adrenal insufficiency: chronic -Continue patient's hydrocortisone HTN: BP well controlled -Continue home metoprolol and Norvasc Anxiety/depression: chronic -Continue home meds DVT prophylaxis: Lovenox Discharge Planning Discharge pending echo, PT/OT, neuro evaluation and clearance. 1400hrs: Patient seen by neurology earlier today, recommended continuing aspirin /plavix and can be discharged if echocardiogram unremarkable. Echocardiogram done, results pending. PT eval completed, recommended gualberto size walker otherwise no PT needed at discharge. Discussed with RN, PT, CM. Discharge patient to home Condition on discharge: Improved Regular Diet as tolerated Ad Josselin activity Rx written: no changes to meds Follow-up with primary care physician and neurologist Dr. Salinas Problem Qualifiers (1) Headache: Qualified Codes: R51 - Headache Tia Hinkle PA-C March 11, 2018 8:46 am
--- NOTE | 2018-03-11 08:55 | RADRPT ---
EXAM DATE/TIME: 03/11/2018 08:14 [facility] COMPARISON: MRI BRAIN W & W/O CONTRAST, January 20, 2016, 10:15. CT BRAIN W/O CONTRAST, March 10, 2018, 14:12. INDICATIONS : Cephalgia. Left side weakness. MEDICAL HISTORY : Hypertension. Carcinoma, ovarian. CVA x2 SURGICAL HISTORY : Hysterectomy. Cholecystectomy. section. Bilateral ear surgeries. ENCOUNTER: Initial ACUITY: 1 day PAIN SCORE: 5/10 LOCATION: cranial TECHNIQUE: Multiplanar, multisequence MRI of the brain was performed without contrast. FINDINGS: CEREBRUM: The ventricles are normal. No evidence of midline shift, mass lesion, hemorrhage or acute infarction . No extraaxial fluid collections are seen. The pituitary gland and suprasellar cistern are normal in configuration. There is stable change with CSF density in the right basal ganglia and in the right periventricular white matter. WHITE MATTER: No significant signal abnormalities are seen in the white matter. POSTERIOR FOSSA: The cerebellum and brainstem demonstrate no acute finding. The 4th ventricle is midline. The cerebel lopontine angle is unremarkable. The cerebellar tonsils are normal in position. DIFFUSION IMAGING: No focal areas of restricted diffusion are seen. No evidence of acute infarction. EXTRACRANIAL: The visualized portions of the orbits and paranasal sinuses are unremarkable. CONCLUSION: No acute intracranial abnormality is identified. There is stable change in the right periventricular white matter and right basal ganglia. Cachorro Cramer MD on March 11, 2018 at 8:49 Board Certified Radiologist. This report was verified electronically.
--- NOTE | 2018-03-11 08:59 | RADRPT ---
EXAM DATE/TIME: 03/11/2018 08:14 [facility] COMPARISON: MRA BRAIN W/O CONTRAST, January 20, 2016, 10:15. INDICATIONS : Cephalgia. Left side weakness. MEDICAL HISTORY : Hypertension. Carcinoma, ovarian. CVA x2 SURGICAL HISTORY : Hysterectomy. Cholecystectomy. section. Bilateral ear surgeries ENCOUNTER: Initial ACUITY: 1 day PAIN SCORE: 5/10 LOCATION: cranial Please note a normal MRA of the brain does not entirely exclude the possibility of a small aneurysm, nor the possibility of distal intracranial vessel disease. TECHNIQUE: 3D time of flight MRA was performed. Source images, multiplanar STS MIP, and 3D volume MIP reconstru ctions were reviewed. FINDINGS: Anterior circulation: The internal carotid arteries demonstrate no abnormality or atherosclerotic change. A1 segments and m ore distal anterior cerebral arteries demonstrate no acute finding. The right A1 segment remains hypo plastic. The middle cerebral artery branches demonstrate symmetric flow related enhancement. No aneur ysm or high-grade stenosis is identified. Posterior circulation: There are patent posterior cerebral arteries bilaterally. Right vertebral artery is dominant. Left ve rtebral artery is not seen. The basilar artery and posterior cerebral arteries demonstrate no signifi cant stenosis or abnormality. There is persistent circulation on the right. No aneurysm is visu alized. CONCLUSION: Stable examination. No acute intracranial vascular abnormality is identified Cachorro Cramer MD on March 11, 2018 at 8:53 Board Certified Radiologist. This report was verified electronically.
[2018-03-11 09:19] LABS: AUTOMATED NEUTROPHIL # 2.4 TH/MM3 (1.8-7.7); BASOPHIL # 0.1 TH/MM3 (0-0.2); BASOPHIL % 1.3 % (0.0-2.0); EOSINOPHIL # 0.3 TH/MM3 (0-0.4); EOSINOPHIL % 6.2 % (0.0-4.0); HEMATOCRIT 35.6 % (35.0-46.0); HEMOGLOBIN 11.9 GM/DL (11.6-15.3); LYMPHOCYTE # 2.5 TH/MM3 (1.0-4.8); MEAN CELL VOLUME 90.8 FL (80.0-100.0); MEAN CORPUSCULAR HEMOGLOBIN 30.4 PG (27.0-34.0); MEAN CORPUSCULAR HGB CONC 33.5 % (32.0-36.0); MEAN PLATELET VOLUME 8.4 FL (7.0-11.0); MONO % 5.6 % (0.0-8.0); MONOCYTE # 0.3 TH/MM3 (0-0.9); NEUT % 41.9 % (16.0-70.0); PLATELET COUNT 225 TH/MM3 (150-450); RED BLOOD COUNT 3.92 MIL/MM3 (4.00-5.30); RED CELL DISTRIBUTION WIDTH 13.5 % (11.6-17.2); WHITE BLOOD COUNT 5.6 TH/MM3 (4.0-11.0)
[2018-03-11 09:49] LABS: ALBUMIN 3.3 GM/DL (3.4-5.0); ALKALINE PHOSPHATASE 78 U/L (45-117); ALT (GPT) 72 U/L (10-53); AST (GOT) 42 U/L (15-37); BICARBONATE 22.2 MEQ/L (21.0-32.0); BLOOD UREA NITROGEN 10 MG/DL (7-18); CALCIUM 8.3 MG/DL (8.5-10.1); CHLORIDE 113 MEQ/L (98-107); CHOLESTEROL 174 MG/DL (120-200); CREATININE 0.68 MG/DL (0.50-1.00); GLOMERULAR FILTRATION RATE 93 ML/MIN (>89); GLUCOSE,RANDOM 90 MG/DL (74-106); HDL CHOLESTEROL 57.9 MG/DL (40.0-60.0); LDL CHOLESTEROL 55 MG/DL (0-99); SODIUM (NA) 145 MEQ/L (136-145); TOTAL BILIRUBIN ADULT 0.2 MG/DL (0.2-1.0); TOTAL PROTEIN 6.2 GM/DL (6.4-8.2); TRIGLYCERIDES 305 MG/DL (42-150)
--- NOTE | 2018-03-11 10:13 | MB ---
cc: Fer Thornton MD DATE: 03/11/2018 HISTORY OF PRESENT ILLNESS: A 47-year-old right-handed woman with hypertension, hypercholesterolemia, hepatitis when she was younger, evidently hepatitis A, ovarian cancer in 2002, status post hysterectomy, thyroid nodules. She tells me she had seizures, started 5 years ago, has not had one in 2 years. She is on Keppra. She is not sure of the dose. She sees Dr. Salinas for that. Seizures are usually when she stiffens up. No complex partial seizures. She also has a history of stroke, she says in 2006, which left her with a bad headache, right hemisensory loss and weakness on the right side, some speech problems, which she fully recovered from and then TIA in 2011 with similar symptoms. She has been on Plavix and a baby aspirin. She has had a headache for about 6 days and felt the last 2 days, some numbness on the right face, arm, and leg and heaviness on the right side also and thus, admitted to the hospital. SOCIAL HISTORY: Nonsmoker, nondrinker, lives with her . FAMILY HISTORY: Negative for cancer, seizure or stroke. PAST MEDICAL HISTORY: As above, also history of headache about 2 a week. Depression and anxiety. She takes Ativan, some antidepressants. She is also on Fioricet p.r.n. and narcotics p.r.n. She was just in the hospital 01/26/2018 with a headache. She has been in the hospital several times with depression. She was actually seen by me in 01/2016. I noted she had a history of bipolar. She was having headaches every day at that time, all over her head. Ken Acted because she took 7 Fioricet. She has been on Topamax in the past, gave her suicidal thoughts. Depakote made her hair fall out. She was on Elavil at that time. She had daily chronic headaches and took Fioricet every day. She has had Botox in the past, which helped a little bit. History of schizoaffective disorder with suicidal ideation. On Dilantin in the past. She said she had meningitis when she was 3 years old. She was on Lidoderm patches on her forehead. RPR and thyroid were negative. She was on Seroquel in the past. Sedimentation rate was normal back in 2013, methylmalonic acid, B12, thiamine, RPR, REYNA all normal in the past. CAT scan showed 2 old lacunar right infarcts, 2 old strokes in the right basal ganglia. ALLERGIES: SHE IS ALLERGIC TO PENICILLIN, TRAMADOL, BACTRIM. MEDICATIONS: She is on nitroglycerin, 81 of aspirin, Plavix, Keppra 500 t.i.d., Elavil 50 t.i.d., hydrocodone, Fioricet, hydrocortisone 5 mg t.i.d., metoprolol, amlodipine, Ativan p.r.n., Lexapro 20 a day. PHYSICAL EXAMINATION: VITAL SIGNS: She is afebrile, 70, 20, 135/73. NECK: No carotid bruits. HEART: Regular rhythm. I do not detect a murmur. NEUROLOGIC: Pupils are equal. Visual devine are full. Extraocular movements intact without nystagmus. Temples are nontender bilaterally. Face is symmetric with decreased sensation on the right compared to the left. Tongue was midline. There is no drift. She has normal strength best testing in upper and lower extremities bilaterally. A little bit of give way weakness on the right lower extremity, but the best strength is normal. Toes downgoing bilaterally. DTRs are 2+ symmetric throughout. Pinprick is diminished on the right face, arm, and leg compared to the left. Speech is fluent, not aphasic. Gait is steady. LABORATORY DATA: CBC is normal. Other labs as noted above from prior admissions have been negative. Urine drug screen here positive for opiates, barbiturates, benzos. Her BMP yesterday was normal as was a calcium. LFTs are elevated, which is new for her. AST 138, ALT 119. Ammonia level was normal in 2016. Troponins were negative in 2016. She had a hypercoagulable screen done that was normal in the past in 2016, except for factor VIII slightly high at 211, normal less than 180. In 2016, she had an MRI of the brain, which did not show anything new. MRA [place], questionable mild narrowing in the right carotid siphon, otherwise normal. MR venogram of the brain was normal. Carotid ultrasound on this admission negative. MRA [place] is normal here. MRI of the brain read as normal here except for the old right changes. Review of those films that is in fact normal, in fact there is minimal changes on the right side that is old. ASSESSMENT: Think Overall, she looks well neurologically and I think she should do well, but continue on her aspirin and Plavix. We could set her up for Botox as an outpatient for the headaches, either in my office or maybe Dr. Salinas's office could do that. We will just order an echocardiogram on her and if that is negative, she could be discharged on the Plavix and aspirin and followup with Dr. Salinas. MD NICK Haider/MARLENE , 09:29 AM , 10:12 AM
[2018-03-11] MEDS: AMITRIPTYLINE HCL 50 MG TAB PO SCH ×3 (10:22→20:51)
[2018-03-11] MEDS: METOPROLOL SUCCINATE 50 MG EXTENDED RELEASE TAB PO SCH (10:22)
[2018-03-11] MEDS: CLOPIDOGREL 75 MG TAB PO SCH (10:22)
[2018-03-11] MEDS: ASPIRIN 81 MG CHEW TAB CHEW SCH (10:23)
[2018-03-11] MEDS: ESCITALOPRAM OXALATE 20 MG TAB PO SCH (10:23)
[2018-03-11] MEDS: HYDROCORTISONE 10 MG TAB PO SCH ×3 (10:23→20:51)
[2018-03-11] MEDS: levETIRAcetam 500 MG TAB PO SCH ×3 (10:23→20:51)
[2018-03-11] MEDS: SODIUM CHLORIDE 0.9% FLUSH 10 ML FLUSH IV FLUSH SCH ×2 (10:23→20:19)
[2018-03-11] MEDS ORDERED: WALKER/YOUTH/FO1 MIS (10:54)
[2018-03-11] MEDS ORDERED: GADODIAMIDE PF 287 MG/ML 10 ML VIAL (for RAD MRI) IVCONTRAST ONE (12:00)
--- NOTE | 2018-03-11 12:12 | RADRPT ---
EXAM DATE/TIME: 03/11/2018 10:54 [facility] COMPARISON: US CAROTID ARTERIES, March 10, 2018, 18:20. INDICATIONS : Left sided weakness. Cephalgia. CONTRAST: 10 cc Omniscan (gadodiamide) IV MEDICAL HISTORY : Carcinoma, ovarian. Cerebrovascular disease. Hypertension. SURGICAL HISTORY : Hysterectomy. Hysterectomy. Cholecystectomy. Bilateral ear surgeries. ENCOUNTER: Initial ACUITY: 1 day PAIN SCORE: 0/10 LOCATION: neck Percent stenosis is calculated using the diameter of the stenotic region over the diameter of the nor mal distal internal carotid artery. TECHNIQUE: Bolus infused MRA of the extracranial circulation was performed using a neurovascular coil. Post pro cessing was performed including rotating subvolume maximum intensity projections of each carotid samantha ry, rotating full volume maximum intensity projections of both carotid arteries, sagittal and coronal sliding thin slab reformations of each carotid artery, and left oblique sliding thin slab reformatio n through the aortic arch to include the origin of the arch branch vessels. FINDINGS: AORTIC ARCH: There is a three vessel origin of the great vessels from the aorta. No evidence of ostial narrowing. RIGHT CAROTID: Common carotid artery demonstrates no acute abnormality or significant stenosis. No atherosclerotic c hanges present. Carotid bulb, internal carotid artery, and extra carotid artery have a normal appeara nce without narrowing. LEFT CAROTID: Common carotid artery demonstrates no acute abnormality or significant stenosis. No atherosclerotic c hanges present. Carotid bulb, internal carotid artery, and extra carotid artery have a normal appeara nce without narrowing. VERTEBRALS: The right vertebral artery is dominant. The proximal left vertebral artery is not adequately visualiz ed. CONCLUSION: 1. No significant stenosis is present within either internal carotid artery. Neck arterial vasculatur e is within normal limits. 2. Right vertebral artery is dominant with nonvisualization of the proximal left vertebral artery. Cachorro Cramer MD on March 11, 2018 at 12:06 Board Certified Radiologist. This report was verified electronically.
--- NOTE | 2018-03-11 12:30 | EKG ---
Date Performed: 03/10/2018 Time Performed: 12:58:47 PTAGE: 47 years EKG: Sinus rhythm WITH SHORT MS INTERVAL MODERATE T-WAVE ABNORMALITY, CONSIDER ANTERIOR ISCHEMIA ABNORMAL ECG PREVIOUS TRACING : 01/19/2016 14.58 Since the previous tracing, no significant change noted DOCTOR: Adonay Ricketts Interpretating Date/Time 03/11/2018 12:29:26
[2018-03-11 13:38] LABS: HEMOGLOBIN A1C 5.4 % (4.3-6.0)
--- NOTE | 2018-03-11 14:19 | HHI.DCPOC ---
Discharge Care Plan Diagnosis: (1) Headache (2) Right sided weakness Goals to Promote Your Health * To prevent worsening of your condition and complications * To maintain your health at the optimal level Directions to Meet Your Goals Take your medications as prescribed Follow your dietary instruction Follow activity as directed Keep your appointments as scheduled Take your immunizations and boosters as scheduled If your symptoms worsen call your PCP, if no PCP go to Urgent Care Center or Emergency Room Smoking is Dangerous to Your Health. Avoid second hand smoke Call the 24-hour hour crisis hotline for domestic abuse at Tia Hinkle PA-C March 11, 2018 14:19
[2018-03-11] MEDS: LORazepam 1 MG TAB PO PRN (20:51)
[2018-03-11] MEDS: ENOXAPARIN SODIUM 40 MG/0.4 ML SYRINGE SQ SCH (20:53)
[2018-03-12 00:45] VITALS: BP 95/63; PULSE 98; RESP 16; TEMP 98; O2SAT 98
[2018-03-12] MEDS: HYDROmorphone HCL PF 0.5 MG/0.5 ML SYRINGE IV PUSH PRN ×2 (00:48→09:47)
[2018-03-12 01:13] VITALS: BP 113/59; PULSE 59; RESP 16; TEMP 97.7; O2SAT 95
[2018-03-12 04:40] VITALS: BP 123/83; PULSE 70; RESP 16; TEMP 98.1; O2SAT 99
[2018-03-12] MEDS: KETOROLAC TROMETHAMINE 30 MG/ML (IVP) VIAL IV PUSH PRN (04:44)
--- NOTE | 2018-03-12 07:55 | HHI.PR ---
Subjective Remarks still dupree and r hs loss Objective Vital Signs Date Time Temp Pulse Resp B/P (MAP) Pulse Ox O2 Delivery O2 Flow Rate FiO2 03/12/18 04:40 98.1 70 16 123/83 (96) 99 03/12/18 01:30 16 03/12/18 01:13 97.7 59 16 113/59 (77) 95 03/12/18 00:45 98.0 98 16 95/63 (74) 98 03/11/18 22:40 16 03/11/18 21:50 97.8 62 16 116/69 (85) 97 03/11/18 17:05 98.6 66 20 132/62 (85) 98 03/11/18 14:02 98 21 03/11/18 12:26 98.2 66 20 136/68 (90) 96 Result Diagram: 03/11/18 0745 03/11/18 0745 Objective Remarks 03/10 t/o nl speech bnad Assessment and Plan Assessment and Plan imp if ech nl ok dc mri/a/a neg recheck factor 8 and mtfr gene could do botox my office Fer Thornton MD March 12, 2018 07:55
[2018-03-12 07:56] VITALS: BP 139/76; PULSE 80; RESP 20; TEMP 98; O2SAT 98
--- NOTE | 2018-03-12 08:57 | ECHRPT ---
Indication: CONCLUSIONS The left ventricular systolic function is low normal with an estimated ejection fraction in the rang e of 50- 55%. Wall thickness is normal. Normal left ventricular size. [id number] mitral valve regurgitation. There is mild tricuspid valve regurgitation. The estimated pulmonary arterial pressure is 30.6 mmHg. Mild pulmonary valve regurgitation. BP: / HR: Rhythm: Sinus MEASUREMENTS (Male / Female) Normal Values Technical Quality:Fair 2D ECHO LV Diastolic Diameter PLAX 4.3 cm 4.2 - 5.9 / 3.9 - 5.3 cm LV Systolic Diameter PLAX 2.9 cm IVS Diastolic Thickness 1.1 cm 0.6 - 1.0 / 0.6 - 0.9 cm LVPW Diastolic Thickness 0.8 cm 0.6 - 1.0 / 0.6 - 0.9 cm LV Relative Wall Thickness 0.4 RV Internal Dim ED PLAX 3.3 cm LVOT Diameter 2.1 cm LA Systolic Diameter LX 3.3 cm 3.0 - 4.0 / 2.7 - 3.8 cm M-MODE Aortic Root Diameter MM 2.2 cm LA Systolic Diameter MM 3.8 cm LA Ao Ratio MM 1.7 AV Cusp Separation MM 1.8 cm DOPPLER AV Peak Velocity 145.0 cm/s AV Peak Gradient 8.4 mmHg LVOT Peak Velocity 108.0 cm/s LVOT Peak Gradient 4.7 mmHg AV Area Cont Eq pk 2.6 cm MV Area PHT 4.6 cm Mitral E Point Velocity 85.9 cm/s Mitral A Point Velocity 34.6 cm/s Mitral E to A Ratio 2.5 LV E' Lateral Velocity 13.5 cm/s Mitral E to LV E' Lateral Ratio 6.4 LV E' Septal Velocity 10.4 cm/s Mitral E to LV E' Septal Ratio 8.3 TR Peak Velocity 227.0 cm/s TR Peak Gradient 20.6 mmHg Right Atrial Pressure 10.0 mmHg Pulmonary Artery Systolic Pressu 30.6 mmHg Right Ventricular Systolic Press 30.6 mmHg FINDINGS LEFT VENTRICLE The left ventricular systolic function is low normal with an estimated ejection fraction in the rang e of 50- 55%. Wall thickness is normal. Normal left ventricular size. RIGHT VENTRICLE Normal right ventricular size and systolic function. LEFT ATRIUM The left atrial size is normal. RIGHT ATRIUM The right atrial size is normal. ATRIAL SEPTUM Normal atrial septal thickness without atrial level shunting by limited color doppler interrogation. AORTA The aortic root and proximal ascending aorta are normal in size on limited imaging. MITRAL VALVE Structurally normal mitral valve. [id number] mitral valve regurgitation. AORTIC VALVE Trileaflet aortic valve. No aortic valve stenosis or regurgitation. TRICUSPID VALVE Structurally normal tricuspid valve. There is mild tricuspid valve regurgitation. The estimated pulmonary arterial pressure is 30.6 mmHg. PULMONARY VALVE Mild pulmonary valve regurgitation. VESSELS The inferior vena cava is normal in size. PERICARDIUM No pericardial effusion. Adonay Ricketts MD (Electronically Signed) Final Date:12 Mar 2018 08:56
[2018-03-12] MEDS: INSULIN ASPART SUPPLEMENTAL SCALE SQ SCH (09:18)
[2018-03-12] MEDS: SODIUM CHLORIDE 0.9% FLUSH 10 ML FLUSH IV FLUSH SCH (09:46)
[2018-03-12] MEDS: CLOPIDOGREL 75 MG TAB PO SCH (09:46)
[2018-03-12] MEDS: AMITRIPTYLINE HCL 50 MG TAB PO SCH (09:46)
[2018-03-12] MEDS: levETIRAcetam 500 MG TAB PO SCH (09:46)
[2018-03-12] MEDS: ASPIRIN 81 MG CHEW TAB CHEW SCH (09:46)
[2018-03-12] MEDS: ESCITALOPRAM OXALATE 20 MG TAB PO SCH (09:46)
[2018-03-12] MEDS: HYDROCORTISONE 10 MG TAB PO SCH (09:46)
[2018-03-12] MEDS: METOPROLOL SUCCINATE 50 MG EXTENDED RELEASE TAB PO SCH (09:46)
[2018-03-12] MEDS: LORazepam 1 MG TAB PO PRN (09:53)
[2018-03-12] MEDS: SODIUM CHLOR 0.9% 1000 ML INJ 1,000 ML IV SCH (10:38)
[2018-03-12 10:59] VITALS: BP 127/61; PULSE 78; RESP 24; TEMP 98.9; O2SAT 98
--- NOTE | 2018-03-12 11:32 | HHI.PR ---
Subjective Remarks Follow up for headache, right sided numbness/weakness. The patient reports feeling much better today. Only with mild headache, much improved. Denies any visual changes, lightheadedness, dizziness, chest pain, palpitations, or shortness of breath. She wants to go home. She plans to continue to follow with Dr. Salinas for pain management, and also follow up with Dr. Thornton for botox injections for her headaches. Objective Vitals Vital Signs Date Time Temp Pulse Resp B/P (MAP) Pulse Ox O2 Delivery O2 Flow Rate FiO2 03/12/18 10:59 98.9 78 24 127/61 (83) 98 03/12/18 07:56 98.0 80 20 139/76 (97) 98 03/12/18 04:40 98.1 70 16 123/83 (96) 99 03/12/18 01:30 16 03/12/18 01:13 97.7 59 16 113/59 (77) 95 03/12/18 00:45 98.0 98 16 95/63 (74) 98 03/11/18 22:40 16 03/11/18 21:50 97.8 62 16 116/69 (85) 97 03/11/18 17:05 98.6 66 20 132/62 (85) 98 03/11/18 14:02 98 21 03/11/18 12:26 98.2 66 20 136/68 (90) 96 Result Diagram: 03/11/18 0745 03/11/18 0745 Imaging Last Impressions Neck Magnetic Resonance Angiography 03/11/18 0000 Signed Impressions: Service Date/Time: Sunday, March 11, 2018 10:54 - CONCLUSION: 1. No significant stenosis is present within either internal carotid artery. Neck arterial vasculature is within normal limits. 2. Right vertebral artery is dominant with nonvisualization of the proximal left vertebral artery. Cachorro Cramer MD Head Magnetic Resonance Angiography 03/11/18 0000 Signed Impressions: Service Date/Time: Sunday, March 11, 2018 08:14 - CONCLUSION: Stable examination. No acute intracranial vascular abnormality is identified Cachorro Cramer MD Brain MRI 03/11/18 0000 Signed Impressions: Service Date/Time: Sunday, March 11, 2018 08:14 - CONCLUSION: No acute intracranial abnormality is identified. There is stable change in the right periventricular white matter and right basal ganglia. Cachorro Cramer MD Head CT 03/10/18 0000 Signed Impressions: Service Date/Time: Saturday, March 10, 2018 14:12 - CONCLUSION: No acute intracranial findings. Og Hill MD Carotid Artery Ultrasound 03/10/18 0000 Signed Impressions: Service Date/Time: Saturday, March 10, 2018 18:20 - CONCLUSION: No acute disease. Zoltan Chawla MD Objective Remarks GENERAL: Well-nourished, well-developed middle aged female patient in NAD. SKIN: Warm and dry. No rash. HEENT: Normocephalic. Atraumatic.Pupils equal and round. EOMI. Mucous membranes pink and moist. CARDIOVASCULAR: Regular rate and rhythm. No murmur appreciated. RESPIRATORY: No accessory muscle use. Clear to auscultation. Breath sounds equal bilaterally. GASTROINTESTINAL: Abdomen soft, non-tender, nondistended. Normoactive bowel sounds x4. MUSCULOSKELETAL: No obvious deformities. Extremities without clubbing, cyanosis , or edema. NEUROLOGICAL: Awake and alert. No obvious cranial nerve deficits. 5/5 strength throughout all extremities. Normal speech. PSYCHIATRIC: Appropriate mood and affect; insight and judgment normal. Medications and IVs Current Medications Medications (Trade) Dose Ordered Sig/Bambi Route Start Time Stop Time Status Last Admin (NS Flush) 2 ml BID IV FLUSH 03/10/18 21:00 03/12/18 09:46 (NS Flush) 2 ml UNSCH PRN IV FLUSH 03/10/18 15:45 Sodium Chloride 1,000 ml @ 70 mls/hr [id number] IV 03/10/18 15:44 03/11/18 20:20 (Vasotec Inj) 1.25 mg Q4H PRN IV PUSH 03/10/18 15:45 (NovoLOG SUPPLEMENTAL SCALE) 1 ACHS SQ 03/10/18 17:00 (D50w (Vial) Inj) 50 ml UNSCH PRN IV PUSH 03/10/18 15:45 (Glucagon Inj) 1 mg UNSCH PRN OTHER 03/10/18 15:45 (Ativan Inj) 1 mg Q15M PRN IV PUSH 03/10/18 16:00 03/11/18 08:03 (Toradol Inj) 30 mg Q6H PRN IV PUSH 03/10/18 16:30 03/15/18 16:28 03/12/18 04:44 (Dilaudid Pf Inj) 0.5 mg Q4H PRN IV PUSH 03/10/18 16:30 03/12/18 09:47 (Roxicodone) 5 mg Q4H PRN PO 03/10/18 16:45 (Roxicodone) 10 mg Q4H PRN PO 03/10/18 16:45 03/11/18 20:21 (Elavil) 50 mg TID PO 03/10/18 18:00 03/12/18 09:46 (Norvasc) 10 mg DAILY PO 03/11/18 09:00 03/12/18 09:46 (Aspirin Chew) 81 mg DAILY CHEW 03/11/18 09:00 03/12/18 09:46 (Plavix) 75 mg DAILY PO 03/11/18 09:00 03/12/18 09:46 (Lexapro) 20 mg DAILY PO 03/11/18 09:00 03/12/18 09:46 (Cortef) 5 mg TID PO 03/10/18 18:00 03/12/18 09:46 (Keppra) 500 mg TID PO 03/10/18 18:00 03/12/18 09:46 (Ativan) 1 mg BID PRN PO 03/10/18 16:45 03/12/18 09:53 (Toprol Xl) 50 mg DAILY PO 03/11/18 09:00 03/12/18 09:46 (Lovenox Inj) 40 mg Q24H SQ 03/10/18 18:00 03/11/18 20:53 A/P Problem List: (1) Headache ICD Code: R51 - Headache Status: Chronic (2) Right sided weakness ICD Code: R53.1 - Weakness Status: Acute Assessment and Plan 47 year old female with history of CVA x 2, HTN, seizure disorder, migraines, pituitary microadenoma, adrenal insufficiency, anxiety, and depression presenting with intractable headache x 5 days and new onset right- sided weakness x 2 days. She is also found to have elevated LFTs new from prior visits. Intractable headache: patient reports symptoms not typical of previous migraine headaches. -Head CT reviewed, no acute findings -Continue pain control with oxycodone prn, IV dilaudid prn breakthrough pain -Give IVF hydration, antiemetics prn -Neurology consulted, appreciate recommendations, symptoms improved, neuro cleared for discharge, outpatient f/up with Dr. Thornton to consider botox injections Right-sided weakness: New onset, symptoms present x2days. Eval for CVA. May be secondary to complex migraine. TSH wnl. -Head CT negative as above -Brain MRI/MRA reviewed, no acute findings -Carotid U/S unremarkable, no stenosis -Echocardiogram reviewed and unremarkable -Consult PT/OT, no PT needed at discharge, recommends gualberto size walker -Consult neurology, appreciate recommendation, symptoms improved, cleared for discharge Transaminitis: AST and ALT 138 and 119. Denies EtOH use -Possibly from excessive Tylenol however level 16.5 (normal range under 30) -Avoid hepatotoxic agents -Hepatitis panel negative -LFTs trending down, continue to monitor, repeat as outpatient and f/up with PCP -Discussed with the patient to avoid tylenol products, patient verbalized understanding Seizure disorder: chronic -Continue Keppra -Seizure precautions -Ativan PRN seizure Pituitary microadenoma: chronic -Check prolactin level, pending at discharge -MRI unremarkable Adrenal insufficiency: chronic -Continue patient's hydrocortisone HTN: BP well controlled -Continue home metoprolol and Norvasc Anxiety/depression: chronic -Continue home meds DVT prophylaxis: Lovenox Discharge Planning Discharge patient to home Condition on discharge: Improved Regular Diet as tolerated Ad Josselin activity Rx written: no changes to meds Follow-up with primary care physician and neurologist Dr. Salinas and Dr. Thornton Problem Qualifiers (1) Headache: Qualified Codes: R51 - Headache Tia Hinkle PA-C March 12, 2018 11:32 am
[2018-03-21] MEDS ORDERED: OXYC1TAB36 PO (20:50)
== END 2018-03-12 12:10 | disposition home or self-care (01) ==
LOC: NEPE 12:06 → NEDA 15:46 → NEPHCDU 17:19
PROVIDERS: ADMIT Hospitalist; ATTEND Hospitalist
DX: G43.909 Migraine, unspecified, not intractable, without status migrainosus (principal); G40.909 Epilepsy, unspecified, not intractable, without status epilepticus; I69.351 Hemiplegia and hemiparesis following cerebral infarction affecting right dominant side; I10 Essential (primary) hypertension; F31.9 Bipolar disorder, unspecified; R79.89 Other specified abnormal findings of blood chemistry; R74.0 Nonspecific elevation of levels of transaminase and lactic acid dehydrogenase [LDH]; F43.10 Post-traumatic stress disorder, unspecified; E78.00 Pure hypercholesterolemia, unspecified; D35.2 Benign neoplasm of pituitary gland; E27.40 Unspecified adrenocortical insufficiency; H91.93 Unspecified hearing loss, bilateral; Z85.43 Personal history of malignant neoplasm of ovary; Z86.61 Personal history of infections of the central nervous system; Z90.710 Acquired absence of both cervix and uterus; Z87.891 Personal history of nicotine dependence; Z82.49 Family history of ischemic heart disease and other diseases of the circulatory system; Z82.5 Family history of asthma and other chronic lower respiratory diseases; Z79.02 Long term (current) use of antithrombotics/antiplatelets
CPT/HCPCS: 70450; 70544; 70548; 70551; 80053; 80061; 80074; 80307; 82948; 83036; 84146; 84443; 85025; 85610; 85730; 93005; 93306; 93880; 96361; 96372; 96374; 96375; 96376; 97161; 97166; 99285; A9579; G0378; G8987; G8988; J1170; J1650; J1885; J2060; J2270; J2405; J7030

== ENCOUNTER 2018-03-13 05:47 | Emergency (ER) | payer OTHER, MEDICAID ==
[2018-03-13 07:12] LABS: AUTOMATED NEUTROPHIL # 2.7 TH/MM3 (1.8-7.7); BASOPHIL # 0.1 TH/MM3 (0-0.2); BASOPHIL % 1.3 % (0.0-2.0); EOSINOPHIL # 0.6 TH/MM3 (0-0.4); HEMATOCRIT 35.3 % (35.0-46.0); HEMO FLAGS AUTO DIFF; HEMOGLOBIN 12.1 GM/DL (11.6-15.3); LYMPH % 47.6 % (9.0-44.0); LYMPHOCYTE # 3.5 TH/MM3 (1.0-4.8); MEAN CELL VOLUME 90.1 FL (80.0-100.0); MEAN CORPUSCULAR HGB CONC 34.4 % (32.0-36.0); MEAN PLATELET VOLUME 8.7 FL (7.0-11.0); MONO % 6.5 % (0.0-8.0); MONOCYTE # 0.5 TH/MM3 (0-0.9); NEUT % 36.6 % (16.0-70.0); PLATELET COUNT 287 TH/MM3 (150-450); RED BLOOD COUNT 3.92 MIL/MM3 (4.00-5.30); RED CELL DISTRIBUTION WIDTH 13.5 % (11.6-17.2); WHITE BLOOD COUNT 7.4 TH/MM3 (4.0-11.0)
[2018-03-13] MEDS: SODIUM CHLOR 0.9% 1000 ML INJ 1,000 ML IV (07:16)
[2018-03-13] MEDS: KETOROLAC TROMETHAMINE 30 MG/ML (IVP) VIAL IVP (07:16)
[2018-03-13] MEDS: diphenhydrAMINE HCL 50 MG/ML VIAL IVP (07:16)
[2018-03-13] MEDS: SODIUM CHLORIDE 0.9% FLUSH 10 ML FLUSH IVF (07:17)
[2018-03-13] MEDS: PROCHLORPERAZINE INJ 10 MG/2 ML VIAL IVP (07:17)
[2018-03-13 07:21] LABS: ANION GAP 9 MEQ/L (5-15); BICARBONATE 23.8 MEQ/L (21.0-32.0); BLOOD UREA NITROGEN 14 MG/DL (7-18); CALCIUM 8.5 MG/DL (8.5-10.1); CHLORIDE 104 MEQ/L (98-107); CREATININE 0.86 MG/DL (0.50-1.00); GLOMERULAR FILTRATION RATE 71 ML/MIN (>89); GLUCOSE,RANDOM 72 MG/DL (74-106); SODIUM (NA) 137 MEQ/L (136-145)
[2018-03-13 07:22] LABS: POTASSIUM 4.5 MEQ/L (3.5-5.1)
[2018-03-13 07:46] LABS: SCAN/DIFF AUTO DIFF CONFIRMED
== END 2018-03-13 09:03 | disposition home or self-care (01) ==
LOC: NEPC 05:47
DX: R51 Headache (principal); I10 Essential (primary) hypertension; F31.9 Bipolar disorder, unspecified
CPT/HCPCS: 80048; 85025; 96374; 96375; 99283-25

== ENCOUNTER 2018-03-14 11:29 | Emergency (ER) | payer OTHER, MEDICAID ==
[~2018-03-14] VITALS: Ht 149.9 cm; Wt 50.2 kg
[~2018-03-14 11:29] MED LIST changes: +AMIT50TA3 PO; +ASPI81CH6 CHEW; +LEVE500 PO; +NITR1SUB3 SL; +PLAV75TA29 PO; +WALKER/YOUTH/FO1 MIS
[2018-03-14 11:35] VITALS: BP 117/62; PULSE 79; RESP 22; TEMP 98.7; O2SAT 100
[2018-03-14] MEDS ORDERED: SODIUM CHLOR 0.9% 1000 ML INJ 1,000 ML IV ONE ×2 (11:49→13:30)
--- NOTE | 2018-03-14 11:57 | PD ---
HPI Chief Complaint: Headache Time Seen by Provider: 11:39 Travel History International Travel<30 days: No Contact w/Intl Traveler<30days: No Traveled to known affect area: No History of Present Illness HPI Patient is a 47-year-old female with history of hypertension, hypercholesterolemia, hepatitis, chronic headaches, presents the emergency room for reevaluation of headache. Patient reports that she was recently admitted and discharged from the hospital for this headache, patient reports that headache has not improved. Patient reports that she continues to have diffuse pounding sensation to her head. She reports that she was admitted and seen by Dr. Thornton on March 11, 2018 and after workup, was told to follow-up with her neurologist, Dr. Salinas. She did have an MRI of her brain, head, neck as well as a carotid ultrasound on March 11: Carotid ultrasound shows no acute disease MRI of the carotids with contrast showed no significant stenosis MRA of the brain showed no acute intracranial vascular abnormality MRI of the brain showed no acute intracranial abnormality. Patient reports that she was seen yesterday in the emergency room for similar headaches and felt better after she was discharged but had return of her headache shortly thereafter. She did call her neurologist today who told her to come to the emergency room for an LP [facility] Past Medical History Hx Anticoagulant Therapy: Yes (PLAVIX) Asthma: No Blood Disorders: No Bipolar Disorder: Yes Anxiety: Yes Depression: Yes Heart Rhythm Problems: No Cancer: Yes (ovarian in 2002) Cardiovascular Problems: Yes High Cholesterol: No Chemotherapy: No Chest Pain: No Congestive Heart Failure: No Diabetes: No Diminished Hearing: Yes (bilateral hearing aids) Endocrine: No Gastrointestinal Disorders: No Genitourinary: No Headaches: Yes (Patient reports "severe headaches") Hypertension: Yes Implanted Vascular Access Dvce: No Insomnia: Yes Musculoskeletal: Yes Neurologic: Yes Psychiatric: Yes (PTSD , BIPOLAR DISORDER) Reproductive: Yes Respiratory: No Immunizations Current: Yes Migraines: Yes Radiation Therapy: No Seizures: Yes (History is noted in medical records.) Thyroid Disease: Yes ("nodule on thyroid") Menopausal: Yes : 3 Para: 2 Miscarriage: 1 : 0 Tubal Ligation: Yes Past Surgical History AICD: No Section: Yes (x1) Cholecystectomy: Yes Ear Surgery: Yes (Tumor left side - 1985; Reconstructed right side - 1989) Gynecologic Surgery: Yes (HYSTERECTOMY) Hysterectomy: Yes Other Surgery: Yes (SEE MEDICAL RECORD) Social History Alcohol Use: No Tobacco Use: No Substance Use: Yes (did not specify) Allergies-Medications (Allergen,Severity, Reaction): Coded Allergies: penicillin G (Unverified Allergy, Severe, Rash, 03/13/18) Per pt. tramadol (Unverified Allergy, Severe, Hives, 03/13/18) sulfamethoxazole (Verified Allergy, Unknown, Hives, 03/13/18) trimethoprim (Verified Allergy, Unknown, Hives, 03/13/18) Reported Meds & Prescriptions Reported Meds & Active Scripts Active Walker/Youth/Folding (Device) 1 Mis Mis Ea .XX DIRECTED Reported Aspirin Low Dose (Aspirin) 81 Mg Chew 81 Mg CHEW DAILY Plavix (Clopidogrel Bisulfate) 75 Mg Tab 75 Mg PO DAILY Keppra (Levetiracetam) 500 Mg Tab 500 Mg PO TID Amitriptyline (Amitriptyline HCl) 50 Mg Tab 50 Mg PO TID Hydrocodone-Acetamin 10-325 mg (Hydrocodone/Acetaminophen) 10 Mg-325 Mg Tablet 1 Tab PO QID Hydrocortisone 5 Mg Tab 5 Mg PO TID Take with food to decrease GI upset Metoprolol Succinate ER 24 HR (Metoprolol Succinate) 50 Mg Tab 50 Mg PO DAILY Amlodipine (Amlodipine Besylate) 10 Mg Tab 10 Mg PO DAILY Lorazepam 1 Mg Tab 1 Mg PO BID PRN Lexapro (Escitalopram Oxalate) 20 Mg Tab 20 Mg PO DAILY Review of Systems General / Constitutional: No: Fever Eyes: Positive: Photophobia, No: Visual changes HENT: No: Headaches Cardiovascular: No: Chest Pain or Discomfort Respiratory: No: Shortness of Breath Gastrointestinal: No: Abdominal Pain Genitourinary: No: Dysuria Musculoskeletal: No: Pain Skin: No Rash Neurologic: Positive: Headache, No: Weakness Psychiatric: No: Depression Endocrine: No: Polydipsia Hematologic/Lymphatic: No: Easy Bruising Physical Exam Narrative GENERAL: Moderate distress SKIN: Focused skin assessment warm/dry. HEAD: Atraumatic. Normocephalic. EYES: Pupils equal and round. No scleral icterus. No injection or drainage. ENT: No nasal bleeding or discharge. Mucous membranes pink and moist. NECK: Trachea midline. No JVD. CARDIOVASCULAR: Regular rate and rhythm. No murmur appreciated. RESPIRATORY: No accessory muscle use. Clear to auscultation. Breath sounds equal bilaterally. GASTROINTESTINAL: Abdomen soft, non-tender, nondistended. Hepatic and splenic margins not palpable. MUSCULOSKELETAL: No obvious deformities. No clubbing. No cyanosis. No edema. NEUROLOGICAL: Awake and alert. No obvious cranial nerve deficits. Motor grossly within normal limits. Normal speech. PSYCHIATRIC: Appropriate mood and affect; insight and judgment normal. Data Data Last Documented VS Vital Signs Date Time Temp Pulse Resp B/P (MAP) Pulse Ox O2 Delivery O2 Flow Rate FiO2 03/14/18 12:24 82 18 140/74 (96) 100 Room Air 03/14/18 11:35 98.7 Orders Orders Complete Blood Count With Diff (03/14/18 11:49) Comprehensive Metabolic Panel (03/14/18 11:49) Prothrombin Time / Inr (Pt) (03/14/18 11:49) Act Partial Throm Time (Ptt) (03/14/18 11:49) Csf Cell Count + Differential (03/14/18 11:49) Glucose, Csf (03/14/18 11:49) Total Protein, Csf (03/14/18 11:49) Ecg Monitoring (03/14/18 11:49) Iv Access Insert/Monitor (03/14/18 11:49) Oximetry (03/14/18 11:49) Sodium Chloride 0.9% Flush (Ns Flush) (03/14/18 12:00) Diphenhydramine Inj (Benadryl Inj) (03/14/18 12:00) Metoclopramide Inj (Reglan Inj) (03/14/18 12:00) Sodium Chlor 0.9% 1000 Ml Inj (Ns 1000 M (03/14/18 11:49) Dexamethasone Inj (Decadron Inj) (03/14/18 12:00) Ed Urine Pregnancytest Poc (03/14/18 11:49) Sodium Chlor 0.9% 1000 Ml Inj (Ns 1000 M (03/14/18 13:30) Csf Culture And Gram Stain (03/14/18 13:30) Labs Laboratory Tests Test 03/14/18 12:10 03/14/18 13:30 White Blood Count 8.8 TH/MM3 Red Blood Count 3.82 MIL/MM3 Hemoglobin 12.2 GM/DL Hematocrit 34.8 % Mean Corpuscular Volume 91.1 FL Mean Corpuscular Hemoglobin 31.9 PG Mean Corpuscular Hemoglobin Concent 35.0 % Red Cell Distribution Width 13.4 % Platelet Count 241 TH/MM3 Mean Platelet Volume 8.5 FL Neutrophils (%) (Auto) 61.4 % Lymphocytes (%) (Auto) 24.8 % Monocytes (%) (Auto) 5.2 % Eosinophils (%) (Auto) 7.6 % Basophils (%) (Auto) 1.0 % Neutrophils # (Auto) 5.4 TH/MM3 Lymphocytes # (Auto) 2.2 TH/MM3 Monocytes # (Auto) 0.5 TH/MM3 Eosinophils # (Auto) 0.7 TH/MM3 Basophils # (Auto) 0.1 TH/MM3 CBC Comment DIFF FINAL Differential Comment Prothrombin Time 9.4 SEC Prothromb Time International Ratio 0.9 RATIO Activated Partial Thromboplast Time 21.1 SEC Blood Urea Nitrogen 14 MG/DL Creatinine 0.81 MG/DL Random Glucose 89 MG/DL Total Protein 6.8 GM/DL Albumin 3.9 GM/DL Calcium Level 8.7 MG/DL Alkaline Phosphatase 96 U/L Aspartate Amino Transf (AST/SGOT) 34 U/L Alanine Aminotransferase (ALT/SGPT) 66 U/L Total Bilirubin 0.3 MG/DL Sodium Level 143 MEQ/L Potassium Level 4.4 MEQ/L Chloride Level 113 MEQ/L Carbon Dioxide Level 20.9 MEQ/L Anion Gap 9 MEQ/L Estimat Glomerular Filtration Rate 76 ML/MIN CSF Volume (Tube 1) 1.0 ML CSF Supernatant Color (tube 1) CLEAR CSF Gross Blood (Tube 1) 0 CSF Volume (Tube 2) 1.1 ML CSF Supernatant Color (tube 2) CLEAR CSF Gross Blood (Tube 2) 0 CSF Volume (Tube 3) 1.0 ML CSF Supernatant Color (tube 3) CLEAR CSF Gross Blood (Tube 3) 0 CSF Volume (Tube 4) 3.0 ML CSF Supernatant Color (tube 4) CLEAR CSF Gross Blood (Tube 4) 0 CSF WBC (Tube 4) 2 /MM3 CSF RBC (Tube 4) 0 /MM3 CSF Neutrophils 0 % CSF Lymphocytes 90 % CSF Monocytes 10 % CSF Glucose 48 MG/DL CSF Total Protein 37.2 MG/DL MDM Medical Decision Making Medical Screen Exam Complete: Yes Emergency Medical Condition: Yes Medical Record Reviewed: Yes Interpretation(s) Vital Signs Date Time Temp Pulse Resp B/P (MAP) Pulse Ox O2 Delivery O2 Flow Rate FiO2 03/14/18 11:35 98.7 79 22 117/62 (80) 100 Differential Diagnosis Cephalgia, subarachnoid hemorrhage Narrative Course During the course of the patients emergency department visit, the patients history, examination, and differential diagnosis were reviewed with the patient. The patient was placed on a panel monitor with oximetry and frequent blood pressure monitoring. The patient had an IV access obtained and blood work sent for analysis. The patient was initially provided with a migraine cocktail. Patient consents to lumbar puncture to rule out subarachnoid hemorrhage. The patients laboratory studies were reviewed and remarkable for CBC & BMP Diagram 03/14/18 12:10 Patient gave verbal as well as written consent for LP. CBC & BMP Diagram 03/14/18 12:10 Laboratory Tests Test 03/14/18 12:10 03/14/18 13:30 White Blood Count 8.8 TH/MM3 (4.0-11.0) Red Blood Count 3.82 MIL/MM3 (4.00-5.30) Hemoglobin 12.2 GM/DL (11.6-15.3) Hematocrit 34.8 % (35.0-46.0) Mean Corpuscular Volume 91.1 FL (80.0-100.0) Mean Corpuscular Hemoglobin 31.9 PG (27.0-34.0) Mean Corpuscular Hemoglobin Concent 35.0 % (32.0-36.0) Red Cell Distribution Width 13.4 % (11.6-17.2) Platelet Count 241 TH/MM3 (150-450) Mean Platelet Volume 8.5 FL (7.0-11.0) Neutrophils (%) (Auto) 61.4 % (16.0-70.0) Lymphocytes (%) (Auto) 24.8 % (9.0-44.0) Monocytes (%) (Auto) 5.2 % (0.0-8.0) Eosinophils (%) (Auto) 7.6 % (0.0-4.0) Basophils (%) (Auto) 1.0 % (0.0-2.0) Neutrophils # (Auto) 5.4 TH/MM3 (1.8-7.7) Lymphocytes # (Auto) 2.2 TH/MM3 (1.0-4.8) Monocytes # (Auto) 0.5 TH/MM3 (0-0.9) Eosinophils # (Auto) 0.7 TH/MM3 (0-0.4) Basophils # (Auto) 0.1 TH/MM3 (0-0.2) CBC Comment DIFF FINAL Differential Comment Prothrombin Time 9.4 SEC (9.8-11.6) Prothromb Time International Ratio 0.9 RATIO Activated Partial Thromboplast Time 21.1 SEC (24.3-30.1) Blood Urea Nitrogen 14 MG/DL (7-18) Creatinine 0.81 MG/DL (0.50-1.00) Random Glucose 89 MG/DL (74-106) Total Protein 6.8 GM/DL (6.4-8.2) Albumin 3.9 GM/DL (3.4-5.0) Calcium Level 8.7 MG/DL (8.5-10.1) Alkaline Phosphatase 96 U/L (45-117) Aspartate Amino Transf (AST/SGOT) 34 U/L (15-37) Alanine Aminotransferase (ALT/SGPT) 66 U/L (10-53) Total Bilirubin 0.3 MG/DL (0.2-1.0) Sodium Level 143 MEQ/L (136-145) Potassium Level 4.4 MEQ/L (3.5-5.1) Chloride Level 113 MEQ/L (98-107) Carbon Dioxide Level 20.9 MEQ/L (21.0-32.0) Anion Gap 9 MEQ/L (5-15) Estimat Glomerular Filtration Rate 76 ML/MIN (>89) CSF Volume (Tube 1) 1.0 ML CSF Supernatant Color (tube 1) CLEAR (CLEAR) CSF Gross Blood (Tube 1) 0 (0) CSF Volume (Tube 2) 1.1 ML CSF Supernatant Color (tube 2) CLEAR (CLEAR) CSF Gross Blood (Tube 2) 0 (0) CSF Volume (Tube 3) 1.0 ML CSF Supernatant Color (tube 3) CLEAR (CLEAR) CSF Gross Blood (Tube 3) 0 (0) CSF Volume (Tube 4) 3.0 ML CSF Supernatant Color (tube 4) CLEAR (CLEAR) CSF Gross Blood (Tube 4) 0 (0) CSF WBC (Tube 4) 2 /MM3 (0-10) CSF RBC (Tube 4) 0 /MM3 (NONE) CSF Neutrophils 0 % CSF Lymphocytes 90 % CSF Monocytes 10 % CSF Glucose 48 MG/DL (40-80) CSF Total Protein 37.2 MG/DL (15.0-45.0) Patient reevaluated, I reviewed patient's LP results with her, she will follow- up with her neurologist for Botox injections to help with her headaches. Signs and symptoms of when to return to the ER was reviewed with patient in detail. Procedures Procedure Narrative After written and verbal consent was obtained from patient, LP was performed. LUMBAR PUNCTURE: The patient was placed in the left lateral decubitus position. The lumbar area of the back was prepped with Betadine and sterilely draped. The L3 -- L4 interspace was infiltrated with 1% lidocaine plain. Number 20 gauge LP needle was placed in the interspace. Opening pressure deferred. Number 5 milliliters of clear CSF were obtained. Patient tolerated procedure well. Patient tolerated procedure well Diagnosis Primary Impression: Headache Qualified Codes: R51 - Headache Patient Instructions: General Instructions Additional Instructions: Please follow-up with your neurologist as soon as possible Please follow up with your primary care doctor in 2-3 days Return to the ER if symptoms worsen or progress Return to the ER as needed Disposition: 01 DISCHARGE HOME Condition: Stable Eugenie Weir DO March 14, 2018 11:56
[2018-03-14] MEDS ORDERED: METOCLOPRAMIDE HCL 10 MG/2 ML VIAL IVP ONE (12:00)
[2018-03-14] MEDS ORDERED: SODIUM CHLORIDE 0.9% FLUSH 10 ML FLUSH IVF PRN (12:00)
[2018-03-14] MEDS ORDERED: DEXAMETHASONE SOD PHOS 20 MG/5 ML VIAL IV PUSH ONE (12:00)
[2018-03-14] MEDS ORDERED: diphenhydrAMINE HCL 50 MG/ML VIAL IVP ONE (12:00)
[2018-03-14 12:19] VITALS: O2SAT 100
[2018-03-14 12:24] VITALS: BP 140/74; PULSE 82; RESP 18; O2SAT 100
[2018-03-14 12:35] LABS: AUTOMATED NEUTROPHIL # 5.4 TH/MM3 (1.8-7.7); BASOPHIL # 0.1 TH/MM3 (0-0.2); EOSINOPHIL # 0.7 TH/MM3 (0-0.4); EOSINOPHIL % 7.6 % (0.0-4.0); HEMATOCRIT 34.8 % (35.0-46.0); HEMOGLOBIN 12.2 GM/DL (11.6-15.3); LYMPH % 24.8 % (9.0-44.0); LYMPHOCYTE # 2.2 TH/MM3 (1.0-4.8); MEAN CELL VOLUME 91.1 FL (80.0-100.0); MEAN CORPUSCULAR HEMOGLOBIN 31.9 PG (27.0-34.0); MEAN PLATELET VOLUME 8.5 FL (7.0-11.0); MONO % 5.2 % (0.0-8.0); MONOCYTE # 0.5 TH/MM3 (0-0.9); NEUT % 61.4 % (16.0-70.0); PLATELET COUNT 241 TH/MM3 (150-450); RED BLOOD COUNT 3.82 MIL/MM3 (4.00-5.30); RED CELL DISTRIBUTION WIDTH 13.4 % (11.6-17.2); WHITE BLOOD COUNT 8.8 TH/MM3 (4.0-11.0)
[2018-03-14 12:47] LABS: INTERNATIONAL NORMALIZED RATIO 0.9 RATIO; PROTHROMBIN TIME - PATIENT 9.4 SEC (9.8-11.6)
[2018-03-14 13:40] LABS: ALBUMIN 3.9 GM/DL (3.4-5.0); ALKALINE PHOSPHATASE 96 U/L (45-117); ALT (GPT) 66 U/L (10-53); AST (GOT) 34 U/L (15-37); BICARBONATE 20.9 MEQ/L (21.0-32.0); BLOOD UREA NITROGEN 14 MG/DL (7-18); CALCIUM 8.7 MG/DL (8.5-10.1); CHLORIDE 113 MEQ/L (98-107); CREATININE 0.81 MG/DL (0.50-1.00); GLOMERULAR FILTRATION RATE 76 ML/MIN (>89); GLUCOSE,RANDOM 89 MG/DL (74-106); SODIUM (NA) 143 MEQ/L (136-145); TOTAL BILIRUBIN ADULT 0.3 MG/DL (0.2-1.0); TOTAL PROTEIN 6.8 GM/DL (6.4-8.2)
[2018-03-14 14:37] LABS: TOTAL PROTEIN,CSF 37.2 MG/DL (15.0-45.0)
[2018-03-14 14:52] LABS: CSF LYMPHOCYTES 90 %; CSF MONOCYTES 10 %; CSF NEUTROPHILS 0 %; RBC TUBE #4 0 /MM3; SUPERNATE COLOR TUBE #1 CLEAR (CLEAR); WBC TUBE #4 2 /MM3 (0-10)
[2018-03-14] MEDS ORDERED: BUTA1CAP PO (16:15)
[2018-03-21] MEDS ORDERED: OXYC1TAB36 PO (20:50)
== END 2018-03-14 16:53 | disposition home or self-care (01) ==
LOC: NEPD 11:29
DX: R51 Headache (principal); I10 Essential (primary) hypertension; F31.9 Bipolar disorder, unspecified
CPT/HCPCS: 62270; 80053; 82945; 84157; 84703; 85025; 85610; 85730; 87070; 87205; 89051; 96361; 96374; 96375; 99284; J1100; J1200; J2765; J7030

== ENCOUNTER 2018-03-16 08:09 | Emergency (ER) | payer OTHER, MEDICAID ==
[~2018-03-16] VITALS: Ht 149.9 cm; Wt 51.0 kg
[~2018-03-16 08:09] MED LIST changes: -DILA100C PO; -DIVA250ER PO; -NITR1SUB3 SL
[2018-03-16 08:11] VITALS: BP 163/94; PULSE 92; RESP 16; TEMP 98.2; O2SAT 100
[2018-03-16] MEDS ORDERED: PROCHLORPERAZINE INJ 10 MG/2 ML VIAL IV PUSH ONE (08:45)
[2018-03-16] MEDS ORDERED: diphenhydrAMINE HCL 50 MG/ML VIAL IV PUSH ONE (08:45)
[2018-03-16] MEDS ORDERED: MORPHINE SULFATE 4 MG/ML INJ IV PUSH ONE (08:45)
[2018-03-16] MEDS ORDERED: SODIUM CHLOR 0.9% 1000 ML INJ 1,000 ML IV ONE (08:45)
--- NOTE | 2018-03-16 08:46 | PD ---
HPI Chief Complaint: Pain: Acute or Chronic Time Seen by Provider: 08:19 Travel History International Travel<30 days: No Contact w/Intl Traveler<30days: No Traveled to known affect area: No History of Present Illness HPI This is a 47-year-old female with history of chronic migraines, who was seen 3 days ago and had a lumbar puncture, presents today with complaints of headache, neck pain, low back pain and pain radiating down her right leg. Patient denies any weakness. She reports that shortly after the lumbar puncture, she started experiencing the discomfort. She states that the pain is sharp. She denies any fevers, chills. She denies any loss of bowel or bladder function. She states that she has tried home medication however it does not relieve the discomfort. She reports that 10 years ago when she had a lumbar puncture, she developed a post lumbar puncture headache and required a blood patch. PFSH Past Medical History Hx Anticoagulant Therapy: Yes (PLAVIX) Asthma: No Blood Disorders: No Bipolar Disorder: Yes Anxiety: Yes Depression: Yes Heart Rhythm Problems: No Cancer: Yes (ovarian in 2002) Cardiovascular Problems: Yes High Cholesterol: No Chemotherapy: No Chest Pain: No Congestive Heart Failure: No Cerebrovascular Accident: Yes Diabetes: No Diminished Hearing: Yes (bilateral hearing aids) Endocrine: No Gastrointestinal Disorders: No Genitourinary: No Headaches: Yes (Patient reports "severe headaches") Hypertension: Yes Implanted Vascular Access Dvce: No Insomnia: Yes Musculoskeletal: Yes Neurologic: Yes Psychiatric: Yes (PTSD , BIPOLAR DISORDER) Reproductive: Yes Respiratory: No Immunizations Current: Yes Migraines: Yes Radiation Therapy: No Seizures: Yes (History is noted in medical records.) Thyroid Disease: Yes ("nodule on thyroid") Menopausal: Yes : 3 Para: 2 Miscarriage: 1 : 0 Tubal Ligation: Yes Past Surgical History AICD: No Section: Yes (x1) Cholecystectomy: Yes Ear Surgery: Yes (Tumor left side - 1985; Reconstructed right side - 1989) Gynecologic Surgery: Yes (HYSTERECTOMY) Hysterectomy: Yes Other Surgery: Yes (SEE MEDICAL RECORD) Social History Alcohol Use: No Tobacco Use: No Substance Use: Yes (did not specify) Allergies-Medications (Allergen,Severity, Reaction): Coded Allergies: penicillin G (Unverified Allergy, Severe, Rash, 03/13/18) Per pt. tramadol (Unverified Allergy, Severe, Hives, 03/13/18) sulfamethoxazole (Verified Allergy, Unknown, Hives, 03/13/18) trimethoprim (Verified Allergy, Unknown, Hives, 03/13/18) Reported Meds & Prescriptions Reported Meds & Active Scripts Active Fioricet (Wputbsoksh-Czkxbtggwlhda-Mmrzamoq) 50-300-40 Mg Cap 1-2 Cap PO Q6H PRN 7 Days Walker/Youth/Folding (Device) 1 Mis Mis Ea .XX DIRECTED Reported Aspirin Low Dose (Aspirin) 81 Mg Chew 81 Mg CHEW DAILY Plavix (Clopidogrel Bisulfate) 75 Mg Tab 75 Mg PO DAILY Keppra (Levetiracetam) 500 Mg Tab 500 Mg PO TID Amitriptyline (Amitriptyline HCl) 50 Mg Tab 50 Mg PO TID Hydrocodone-Acetamin 10-325 mg (Hydrocodone/Acetaminophen) 10 Mg-325 Mg Tablet 1 Tab PO QID Hydrocortisone 5 Mg Tab 5 Mg PO TID Take with food to decrease GI upset Metoprolol Succinate ER 24 HR (Metoprolol Succinate) 50 Mg Tab 50 Mg PO DAILY Amlodipine (Amlodipine Besylate) 10 Mg Tab 10 Mg PO DAILY Lorazepam 1 Mg Tab 1 Mg PO BID PRN Lexapro (Escitalopram Oxalate) 20 Mg Tab 20 Mg PO DAILY Review of Systems Except as stated in HPI: all other systems reviewed are Neg General / Constitutional: No: Fever, Chills Eyes: No: Blurred Vision, Photophobia HENT: Positive: Headaches, Neck Pain, No: Lightheadedness Cardiovascular: No: Chest Pain or Discomfort, Palpitations Respiratory: No: Cough, Shortness of Breath Gastrointestinal: No: Nausea, Vomiting, Abdominal Pain Genitourinary: No: Dysuria, Incontinence Musculoskeletal: Positive: Pain (Low back with pain shooting down her right thigh.), No: Limited ROM, Weakness Neurologic: Positive: Headache, No: Weakness, Dizziness, Change in Mentation, Incontinence, Sensory Disturbance Physical Exam Narrative GENERAL: Well-developed well-nourished female in no acute respiratory distress. Patient's tearful and crying stating she is very uncomfortable. SKIN: Focused skin assessment warm/dry. HEAD: Atraumatic. Normocephalic. EYES: Pupils equal and round. No scleral icterus. No injection or drainage. ENT: No nasal bleeding or discharge. Mucous membranes pink and moist. NECK: Trachea midline. Supple. CARDIOVASCULAR: Regular rate and rhythm. No murmur appreciated. RESPIRATORY: No accessory muscle use. Clear to auscultation. Breath sounds equal bilaterally. GASTROINTESTINAL: Abdomen soft, non-tender, nondistended. MUSCULOSKELETAL: No obvious deformities. No clubbing. No cyanosis. No edema. BACK: No CVA tenderness. No rash. Patient has tenderness in the paraspinous area at L4-L5 5 distribution. There is no evidence of redness or drainage or cellulitis on her lower lumbar area. NEUROLOGICAL: Awake and alert. No obvious cranial nerve deficits. Motor grossly within normal limits. Normal speech. No straight leg raise test bilaterally. PSYCHIATRIC: Appropriate mood and affect; insight and judgment normal. Data Data Last Documented VS Vital Signs Date Time Temp Pulse Resp B/P (MAP) Pulse Ox O2 Delivery O2 Flow Rate FiO2 03/16/18 18:15 85 16 159/90 (113) 100 Room Air 03/16/18 08:11 98.2 Orders Orders Sodium Chlor 0.9% 1000 Ml Inj (Ns 1000 M (03/16/18 08:45) Prochlorperazine Inj (Compazine Inj) (03/16/18 08:45) Diphenhydramine Inj (Benadryl Inj) (03/16/18 08:45) Morphine Inj (Morphine Inj) (03/16/18 08:45) Hydromorphone Pf Inj (Dilaudid Pf Inj) (03/16/18 13:30) Mri L Spine W&W/O Contrast (03/16/18 ) Lorazepam Inj (Ativan Inj) (03/16/18 15:09) Lorazepam Inj (Ativan Inj) (03/16/18 15:45) Hydromorphone Pf Inj (Dilaudid Pf Inj) (03/16/18 17:45) [facility] Medical Decision Making Medical Screen Exam Complete: Yes Emergency Medical Condition: Yes Medical Record Reviewed: Yes Differential Diagnosis Post LP headache versus migraine exacerbation versus sciatica Narrative Course 47-year-old female presents with low back pain headache and neck pain. Initially a concern was that this was a post LP headache. Patient was given IV fluids, pain medicine and nausea medicine. She states she felt better however she was still having significant pain. We did speak with the anesthesiologist who evaluated the patient and thought there was more concern for a post LP hematoma. An MRI was ordered to rule out infection versus hematoma. There is no evidence of infection or hematoma. The patient's been given 3 doses of IV pain control. She is feeling much improved. She will be discharged told to continue her home medication. She is also instructed to return if she does any fevers, chills, or any other reason. Diagnosis Primary Impression: Low back pain with sciatica Additional Impressions: Cephalgia/chronic. Status post lumbar puncture 3 days prior. Additional Instructions: Follow-up with your neurologist. Return if fevers, chills, or any other reason that concerns you. Resume home meds. Drink plenty of fluids. Disposition: DISCHARGE HOME Condition: Stable Elton Rodrigeuz MD March 16, 2018 08:46
[2018-03-16 11:16] VITALS: BP 167/96; PULSE 92; RESP 18; O2SAT 98
[2018-03-16] MEDS ORDERED: GADODIAMIDE PF 287 MG/ML 10 ML VIAL (for RAD MRI) IV PUSH ONE (12:00)
[2018-03-16 13:30] VITALS: BP 136/97; PULSE 91; RESP 18; O2SAT 98
[2018-03-16] MEDS ORDERED: HYDROmorphone HCL PF 2 MG/ML VIAL IVS ONE ×2 (13:30→17:45)
[2018-03-16] MEDS ORDERED: LORazepam 2 MG/ML VIAL ONE (15:09)
[2018-03-16] MEDS ORDERED: LORazepam 2 MG/ML VIAL IV PUSH ONE (15:45)
[2018-03-16 15:55] VITALS: BP 122/81; PULSE 78; RESP 18; O2SAT 100
--- NOTE | 2018-03-16 16:08 | RADRPT ---
EXAM DATE/TIME: 03/16/2018 15:22 [place] COMPARISON: No previous studies available for comparison. INDICATIONS : Infection vs hemangioma. CONTRAST: 10 cc Omniscan (gadodiamide) IV MEDICAL HISTORY : Carcinoma, ovarian. Hypertension. SURGICAL HISTORY : Hysterectomy. section. Cholecystectomy. ENCOUNTER: Initial ACUITY: 1 day PAIN SCORE: 0/10 LOCATION: cranial TECHNIQUE: Multiplanar multisequence MRI of the lumbar spine was performed with and without contrast. FINDINGS: The most caudal appearing lumbar vertebra is numbered as L5. VERTEBRAE: Homogeneous signal. Normal alignment. CONUS: Normal level and configuration. POST CONTRAST: No abnormal areas of contrast enhancement are seen. T12-L1: The thecal sac has a normal diameter. No evidence of disc bulge or protrusion. The neural foramina are patent bilaterally. L1-L2: The thecal sac has a normal diameter. No evidence of disc bulge or protrusion. The neural foramina are patent bilaterally. L2-L3: The thecal sac has a normal diameter. No evidence of disc bulge or protrusion. The neural foramina are patent bilaterally. L3-L4: Minimal disc dehydration and slight annular bulge. No evidence of canal or foraminal compromise. L4-L5: The thecal sac has a normal diameter. No evidence of disc bulge or protrusion. The neural foramina are patent bilaterally. L5-S1: The thecal sac has a normal diameter. No evidence of disc bulge or protrusion. The neural foramina are patent bilaterally. CONCLUSION: Minimal disc degeneration most notably at L3-4. No significant anatomic compromise. No signs of infec tion, hematoma or other procedural complication. Cachorro Rich MD on March 16, 2018 at 16:02 Board Certified Radiologist. This report was verified electronically.
[2018-03-16 18:15] VITALS: BP 159/90; PULSE 85; RESP 16; RESP 6; O2SAT 100
[2018-03-21] MEDS ORDERED: OXYC1TAB36 PO (20:50)
== END 2018-03-16 19:20 | disposition home or self-care (01) ==
LOC: NEPE 08:09
DX: M54.40 Lumbago with sciatica, unspecified side (principal); R51 Headache; M54.2 Cervicalgia
CPT/HCPCS: 72158; 96361; 96374; 96375; 96376; 99284; A9579; J0780; J1170; J1200; J2060; J2270; J7030

== ENCOUNTER 2018-03-21 20:22 | Observation (INO) | END 2018-03-23 17:22 | disposition home or self-care (01) | DX: T42.4X1A Poisoning by benzodiazepines, accidental (unintentional), initial encounter (principal); T39.1X1A Poisoning by 4-Aminophenol derivatives, accidental (unintentional), initial encounter; R47.81 Slurred speech; G89.29 Other chronic pain; Z79.891 Long term (current) use of opiate analgesic; H91.90 Unspecified hearing loss, unspecified ear; E27.40 Unspecified adrenocortical insufficiency; I10 Essential (primary) hypertension; G47.00 Insomnia, unspecified; G43.909 Migraine, unspecified, not intractable, without status migrainosus; E07.9 Disorder of thyroid, unspecified; F31.9 Bipolar disorder, unspecified; G40.909 Epilepsy, unspecified, not intractable, without status epilepticus; B19.20 Unspecified viral hepatitis C without hepatic coma; D35.2 Benign neoplasm of pituitary gland; E04.1 Nontoxic single thyroid nodule; R94.31 Abnormal electrocardiogram [ECG] [EKG]; Z86.73 Personal history of transient ischemic attack (TIA), and cerebral infarction without residual deficits; Z85.43 Personal history of malignant neoplasm of ovary | CPT/HCPCS: 70450; 80053; 80307; 81001; 84450; 84460; 84484; 85025; 85610; 85730; 93005; 96361; 96365; 96366; 99285; G0378; J0132; J7030; J7060; J7070 ==

== ENCOUNTER 2018-04-17 11:45 | Emergency (ER) | payer OTHER, MEDICAID ==
[~2018-04-17] VITALS: Ht 149.9 cm; Wt 50.0 kg
[~2018-04-17 11:45] MED LIST changes: -BUTA1CAP PO; -HYDR-3583 PO; +MORP1TAB25 PO; +MSIR15 PO; -WALKER/YOUTH/FO1 MIS
[2018-04-17 12:38] VITALS: BP 176/76; PULSE 85; RESP 16; TEMP 98.4; O2SAT 100
[2018-04-17] MEDS ORDERED: SODIUM CHLOR 0.9% 1000 ML INJ 1,000 ML IV SCH (13:40)
--- NOTE | 2018-04-17 13:44 | PD ---
HPI . Abdominal pain Chief Complaint: GI Complaint Time Seen by Provider: 13:29 Travel History International Travel<30 days: No Contact w/Intl Traveler<30days: No Traveled to known affect area: No History of Present Illness HPI Patient presents with a chief complaint of abdominal pain. Onset was 8 days ago. The pain is getting progressively worse. It is now rated 10/10. The pain is in the lower abdomen. It is associated with malodorous diarrhea. She was seen 3 days ago and was prescribed Bentyl and Flagyl. She has been taking these with no relief of her symptoms. PFSH Past Medical History Hx Anticoagulant Therapy: Yes (PLAVIX) Asthma: No Blood Disorders: No Bipolar Disorder: Yes Anxiety: Yes Depression: Yes Heart Rhythm Problems: No Cancer: Yes (ovarian in 2002) Cardiovascular Problems: Yes High Cholesterol: No Chemotherapy: No Chest Pain: No Congestive Heart Failure: No Cerebrovascular Accident: Yes Diabetes: No Diminished Hearing: Yes (bilateral hearing aids) Endocrine: No Gastrointestinal Disorders: No Genitourinary: No Headaches: Yes (Patient reports "severe headaches") Hypertension: Yes Implanted Vascular Access Dvce: No Insomnia: Yes Musculoskeletal: Yes Neurologic: Yes Psychiatric: Yes (PTSD , BIPOLAR DISORDER) Reproductive: Yes Respiratory: No Immunizations Current: Yes Migraines: Yes Radiation Therapy: No Seizures: Yes (History is noted in medical records.) Thyroid Disease: Yes ("nodule on thyroid") ?: Not Menopausal: Yes : 3 Para: 2 Miscarriage: 1 : 0 Tubal Ligation: Yes Past Surgical History AICD: No Section: Yes (x1) Cholecystectomy: Yes Ear Surgery: Yes (Tumor left side - 1985; Reconstructed right side - 1989) Gynecologic Surgery: Yes (HYSTERECTOMY) Hysterectomy: Yes Other Surgery: Yes (SEE MEDICAL RECORD) Social History Alcohol Use: No Tobacco Use: No (quit) Substance Use: No Allergies-Medications (Allergen,Severity, Reaction): Coded Allergies: penicillin G (Unverified Allergy, Severe, Rash, 04/17/18) Per pt. tramadol (Unverified Allergy, Severe, Hives, 04/17/18) sulfamethoxazole (Verified Allergy, Unknown, Hives, 04/17/18) trimethoprim (Verified Allergy, Unknown, Hives, 04/17/18) Reported Meds & Prescriptions Reported Meds & Active Scripts Active Zofran (Ondansetron HCl) 4 Mg Tab 4 Mg PO Q6HR PRN Reported Aspirin Low Dose (Aspirin) 81 Mg Chew 81 Mg CHEW DAILY Plavix (Clopidogrel Bisulfate) 75 Mg Tab 75 Mg PO DAILY Keppra (Levetiracetam) 500 Mg Tab 500 Mg PO TID Hydrocortisone 5 Mg Tab 5 Mg PO TID Take with food to decrease GI upset Metoprolol Succinate ER 24 HR (Metoprolol Succinate) 50 Mg Tab 50 Mg PO DAILY Amlodipine (Amlodipine Besylate) 10 Mg Tab 10 Mg PO DAILY Lorazepam 1 Mg Tab 1 Mg PO BID PRN Lexapro (Escitalopram Oxalate) 20 Mg Tab 20 Mg PO DAILY Review of Systems Except as stated in HPI: all other systems reviewed are Neg General / Constitutional: No: Fever, Chills Cardiovascular: No: Chest Pain or Discomfort Respiratory: No: Shortness of Breath Gastrointestinal: Positive: Nausea, Diarrhea, Abdominal Pain, No: Vomiting Genitourinary: No: Urgency, Frequency, Dysuria, Decreased Urinary Output Physical Exam Narrative GENERAL: Awake alert in no acute distress. SKIN: warm/dry. HEAD: Normocephalic. Atraumatic. EYES: Pupils equal and round. Extraocular movements are intact. ENT: Mucous membranes pink and moist. NECK: Supple. Full range of motion without pain.. CARDIOVASCULAR: Regular rate and rhythm. Heart sounds are normal. RESPIRATORY: No accessory muscle use. Clear to auscultation. Breath sounds equal bilaterally. GASTROINTESTINAL: Abdomen soft. Lower abdominal tenderness. No guarding or rebound. Bowel sounds present. Nondistended. : Positive left CVA tenderness. MUSCULOSKELETAL: No obvious deformities. Normal muscle tone. NEUROLOGICAL: Awake and alert. No obvious cranial nerve deficits. Motor grossly within normal limits. Normal speech. PSYCHIATRIC: Appropriate mood and affect; insight and judgment normal. Data Data Last Documented VS Vital Signs Date Time Temp Pulse Resp B/P (MAP) Pulse Ox O2 Delivery O2 Flow Rate FiO2 04/17/18 13:29 18 04/17/18 12:38 98.4 85 176/76 (109) 100 Orders Orders C Diff Toxin Pcr (04/17/18 12:15) Complete Blood Count With Diff (04/17/18 13:40) Comprehensive Metabolic Panel (04/17/18 13:40) Lipase (04/17/18 13:40) Urinalysis - C+S If Indicated (04/17/18 13:40) Ct Abd/Pel W Iv Contrast(Rout) (04/17/18 13:40) Iv Access Insert/Monitor (04/17/18 13:40) Sodium Chlor 0.9% 1000 Ml Inj (Ns 1000 M (04/17/18 13:40) Sodium Chloride 0.9% Flush (Ns Flush) (04/17/18 13:45) Diphenhydramine Inj (Benadryl Inj) (04/17/18 13:45) Prochlorperazine Inj (Compazine Inj) (04/17/18 13:45) Morphine Inj (Morphine Inj) (04/17/18 15:30) Cath For Specimen (04/17/18 15:23) Iohexol 350 Inj (Omnipaque 350 Inj) (04/17/18 15:59) Labs Laboratory Tests Test 04/17/18 13:57 04/17/18 15:53 White Blood Count 6.7 TH/MM3 Red Blood Count 4.35 MIL/MM3 Hemoglobin 12.8 GM/DL Hematocrit 38.3 % Mean Corpuscular Volume 88.0 FL Mean Corpuscular Hemoglobin 29.4 PG Mean Corpuscular Hemoglobin Concent 33.4 % Red Cell Distribution Width 13.6 % Platelet Count 341 TH/MM3 Mean Platelet Volume 8.3 FL Neutrophils (%) (Auto) 65.7 % Lymphocytes (%) (Auto) 26.9 % Monocytes (%) (Auto) 5.2 % Eosinophils (%) (Auto) 0.9 % Basophils (%) (Auto) 1.3 % Neutrophils # (Auto) 4.4 TH/MM3 Lymphocytes # (Auto) 1.8 TH/MM3 Monocytes # (Auto) 0.4 TH/MM3 Eosinophils # (Auto) 0.1 TH/MM3 Basophils # (Auto) 0.1 TH/MM3 CBC Comment DIFF FINAL Differential Comment Blood Urea Nitrogen 3 MG/DL Creatinine 0.73 MG/DL Random Glucose 91 MG/DL Total Protein 7.9 GM/DL Albumin 4.0 GM/DL Calcium Level 9.0 MG/DL Alkaline Phosphatase 100 U/L Aspartate Amino Transf (AST/SGOT) 40 U/L Alanine Aminotransferase (ALT/SGPT) 24 U/L Total Bilirubin 0.3 MG/DL Sodium Level 144 MEQ/L Potassium Level 4.4 MEQ/L Chloride Level 112 MEQ/L Carbon Dioxide Level 21.7 MEQ/L Anion Gap 10 MEQ/L Estimat Glomerular Filtration Rate 85 ML/MIN Lipase 653 U/L Urine Color LIGHT-YELLOW Urine Turbidity CLEAR Urine pH 6.5 Urine Specific Edwards 1.033 Urine Protein NEG mg/dL Urine Glucose (UA) NEG mg/dL Urine Ketones NEG mg/dL Urine Occult Blood NEG Urine Nitrite NEG Urine Bilirubin NEG Urine Urobilinogen LESS THAN 2.0 MG/DL Urine Leukocyte Esterase NEG Urine RBC LESS THAN 1 /hpf Urine WBC 1 /hpf Urine Squamous Epithelial Cells <1 /hpf Microscopic Urinalysis Comment CULT NOT INDICATED MDM Medical Decision Making Medical Screen Exam Complete: Yes Emergency Medical Condition: Yes Differential Diagnosis Differential diagnosis of abdominal pain includes but is not limited to gastritis, pancreatitis, hepatitis, gastroenteritis, constipation, urinary retention, peptic ulcer disease, diverticulitis or appendicitis Narrative Course Patient presents complaining with abdominal pain associated with malodorous diarrhea. She is already on Flagyl and is not getting any better. CBC & BMP Diagram 04/17/18 13:57 Total Protein 7.9, Albumin 4.0, Calcium Level 9.0, Alkaline Phosphatase 100, Aspartate Amino Transf (AST/SGOT) 40 H, Alanine Aminotransferase (ALT/SGPT) 24, Total Bilirubin 0.3, Lipase 653 UA neg Last Impressions Abdomen/Pelvis CT 04/17/18 1340 Signed Impressions: CONCLUSION: 1. Mild hepatic hypodensity which is characteristic of increased fat content. 2. Status post cholecystectomy. 3. Status post hysterectomy. 4. No evidence of acute process, suspicious masses or lymphadenopathy. Patient has been here for 5 hours and has had no diarrhea while here. Therefore , C. difficile has not been obtained. She has mild pancreatitis by physical and laboratory evaluation. She does have a family doctor that she can follow with. In fact, she has an appointment with her doctor later this week. She has not been vomiting. I will discharge her to home with prescriptions for [place] and Zofran. She has been instructed to take only a clear liquid diet until her abdominal pain completely resolves. I have reviewed [facility]. This patient already gets a significant number of opiates and benzodiazepines on a regular basis. Therefore, I am not comfortable writing her prescription for more. She also has a history of overdose. I have explained this to the patient. She reports that she understands. She will be discharged home with instructions to take Tylenol for pain. Clear fluids. Zofran for nausea and vomiting. Diagnosis Primary Impression: Pancreatitis Qualified Codes: K85.90 - Acute pancreatitis without necrosis or infection, unspecified Patient Instructions: General Instructions, Pancreatitis (DC) Additional Instructions: Clear fluids only until your abdominal pain has completely resolved. Zofran as needed for nausea. Tylenol as needed for pain. Follow-up with your doctor on Monday as scheduled. Med/Other Pt SpecificInfo: Prescription(s) given Scripts Ondansetron (Zofran) 4 Mg Tab 4 MG PO Q6HR Y for NAUSEA OR VOMITING, #10 TAB 0 Refills Prov: Mis Chavira MD 04/17/18 Disposition: 01 DISCHARGE HOME Condition: Stable Mis Chavira MD Apr 17, 2018 13:44
[2018-04-17] MEDS ORDERED: SODIUM CHLORIDE 0.9% FLUSH 10 ML FLUSH IV FLUSH PRN (13:45)
[2018-04-17] MEDS ORDERED: diphenhydrAMINE HCL 50 MG/ML VIAL IV PUSH ONE (13:45)
[2018-04-17] MEDS ORDERED: PROCHLORPERAZINE INJ 10 MG/2 ML VIAL IV PUSH ONE (13:45)
[2018-04-17 14:09] LABS: AUTOMATED NEUTROPHIL # 4.4 TH/MM3 (1.8-7.7); BASOPHIL # 0.1 TH/MM3 (0-0.2); BASOPHIL % 1.3 % (0.0-2.0); EOSINOPHIL # 0.1 TH/MM3 (0-0.4); EOSINOPHIL % 0.9 % (0.0-4.0); HEMATOCRIT 38.3 % (35.0-46.0); HEMOGLOBIN 12.8 GM/DL (11.6-15.3); LYMPH % 26.9 % (9.0-44.0); LYMPHOCYTE # 1.8 TH/MM3 (1.0-4.8); MEAN CORPUSCULAR HEMOGLOBIN 29.4 PG (27.0-34.0); MEAN CORPUSCULAR HGB CONC 33.4 % (32.0-36.0); MEAN PLATELET VOLUME 8.3 FL (7.0-11.0); MONO % 5.2 % (0.0-8.0); MONOCYTE # 0.4 TH/MM3 (0-0.9); NEUT % 65.7 % (16.0-70.0); PLATELET COUNT 341 TH/MM3 (150-450); RED BLOOD COUNT 4.35 MIL/MM3 (4.00-5.30); RED CELL DISTRIBUTION WIDTH 13.6 % (11.6-17.2); WHITE BLOOD COUNT 6.7 TH/MM3 (4.0-11.0)
[2018-04-17 14:28] LABS: ALT (GPT) 24 U/L (10-53); AST (GOT) 40 U/L (15-37); BICARBONATE 21.7 MEQ/L (21.0-32.0); BLOOD UREA NITROGEN 3 MG/DL (7-18); CHLORIDE 112 MEQ/L (98-107); CREATININE 0.73 MG/DL (0.50-1.00); GLOMERULAR FILTRATION RATE 85 ML/MIN (>89); GLUCOSE,RANDOM 91 MG/DL (74-106); SODIUM (NA) 144 MEQ/L (136-145)
[2018-04-17 14:29] LABS: ALKALINE PHOSPHATASE 100 U/L (45-117); TOTAL BILIRUBIN ADULT 0.3 MG/DL (0.2-1.0); TOTAL PROTEIN 7.9 GM/DL (6.4-8.2)
[2018-04-17] MEDS ORDERED: MORPHINE SULFATE 4 MG/ML INJ IV PUSH ONE (15:30)
[2018-04-17] MEDS ORDERED: IOHEXOL 350 MG/ML 10 ML VIAL (for RAD DIAG) IVCONTRAST ONE (15:59)
--- NOTE | 2018-04-17 16:14 | RADRPT ---
EXAM DATE: 04/17/2018 3:51 PM EDT AGE/SEX: 47 years / Female INDICATIONS: Abdominal pain. CLINICAL DATA: This is the patient's initial encounter. Patient reports that signs and symptoms have been present for 1 day and indicates a pain score of 10/10. MEDICAL/SURGICAL HISTORY: Cardiovascular disease. Hypertension. Carcinoma, ovarian. Seizures . Cholecystectomy. Hysterectomy. Tubal ligation. ORAL CONTRAST: No oral contrast ingested. RADIATION DOSE: 4.65 CTDI (mGy) COMPARISON: No prior exams available for comparison. TECHNIQUE: Multiple contiguous axial images were obtained through the abdomen and pelvis following b olus infusion of 85 ml Omnipaque 350 (iohexol) nonionic water-soluble contrast as a single exam dos e. No oral contrast ingested. Using automated exposure control and adjustment of the mA and/or kV ac cording to patient size, the radiation dose was kept as low as reasonably achievable to obtain optima l diagnostic quality images. FINDINGS: Lower Lungs: The visualized lower lungs are clear. Liver: The liver demonstrates mild diffuse hypodensity but is otherwise unremarkable. There are no sp abeba-occupying lesions or evidence of biliary duct dilatation. Postcholecystectomy clips are noted. Spleen: Homogeneous density without enlargement. Pancreas: Unremarkable without mass or calcification. Kidneys: Normal in size and shape. No evidence of mass or hydronephrosis. Adrenal Glands: Unremarkable. Aorta: The aorta and proximal iliac vessels are grossly unremarkable without aneurysmal dilation. Bowel/Mesentery: The bowel loops are grossly unremarkable. The cecum and sigmoid colon have a normal configuration. Abdominal Wall: Intact. Retroperitoneum: No evidence of adenopathy in the retrocrural, para-aortic, or deep pelvic regions. Bladder: Contours are smooth. Reproductive Organs: Uterus has been removed. No abnormal masses or calcifications seen. Inguinal: The inguinal region is unremarkable without evidence of adenopathy. Bony Structures: Unremarkable. CONCLUSION: 1. Mild hepatic hypodensity which is characteristic of increased fat content. 2. Status post cholecystectomy. 3. Status post hysterectomy. 4. No evidence of acute process, suspicious masses or lymphadenopathy. Electronically signed by: Cole Young MD 04/17/2018 4:13 PM EDT
[2018-04-17 16:21] LABS: BILIRUBIN, URINE NEG (NEG); BLOOD, URINE NEG (NEG); GLUCOSE,URINE NEG (NEG); KETONE, URINE NEG (NEG); NITRITE,URINE NEG (NEG); PH, URINE 6.5 (5.0-8.5); SQUAMOUS EPITHELIAL CELL URINE <1 /hpf (0-5); URINE COLOR LIGHT-YELLOW (YELLW/STRAW); URINE LEUKOCYTE ESTERASE NEG (NEG)
[2018-04-17] MEDS ORDERED: ZOFR4TAB PO (16:55)
== END 2018-04-17 17:09 | disposition home or self-care (01) ==
LOC: NEPD 11:45
DX: K85.90 Acute pancreatitis without necrosis or infection, unspecified (principal); I10 Essential (primary) hypertension; F31.9 Bipolar disorder, unspecified; Z90.49 Acquired absence of other specified parts of digestive tract; Z90.710 Acquired absence of both cervix and uterus; Z87.891 Personal history of nicotine dependence
CPT/HCPCS: 74177; 80053; 81001; 83690; 85025; 96361; 96374; 96375; 99284; J0780; J1200; J2270; J7030; Q9967

== ENCOUNTER 2018-04-28 10:39 | Emergency (ER) | payer OTHER, MEDICAID ==
[~2018-04-28] VITALS: Ht 149.9 cm; Wt 50.0 kg
[~2018-04-28 10:39] MED LIST changes: -AMIT50TA3 PO; -MORP1TAB25 PO; -MSIR15 PO; +ZOFR4TAB PO
[2018-04-28] MEDS ORDERED: DIATRIZOATE MEGLUM/DIATRIZOATE SOD 120 ML BTL (for RAD DIAG) NG ONE (10:40)
[2018-04-28 10:43] VITALS: BP 139/59; PULSE 71; RESP 16; TEMP 98.8; O2SAT 98
[2018-04-28] MEDS ORDERED: ACETAMINOPHEN/HYDROcodone 325 MG/5 MG TAB PO ONE (11:00)
--- NOTE | 2018-04-28 11:53 | PD ---
HPI Chief Complaint: Back/ Neck Pain or Injury Time Seen by Provider: 10:51 Travel History International Travel<30 days: No Contact w/Intl Traveler<30days: No Traveled to known affect area: No History of Present Illness HPI Patient is a 47 year old female who comes in complaining of head, neck and back pain. She says she fell off a six step ladder last night. She says she has a lot of pain and took her 10mg hydrocodone last night without relief. She says she landed on her left side when she fell. She says she hit her head, but denies any LOC. She has been walking since the accident. She denies chest pain or SOB. Severity is mild to moderate. PFSH Past Medical History Hx Anticoagulant Therapy: Yes (PLAVIX) Asthma: No Blood Disorders: No Bipolar Disorder: Yes Anxiety: Yes Depression: Yes Heart Rhythm Problems: No Cancer: Yes (ovarian in 2002) Cardiovascular Problems: Yes High Cholesterol: No Chemotherapy: No Chest Pain: No Congestive Heart Failure: No Cerebrovascular Accident: Yes Diabetes: No Diminished Hearing: Yes (bilateral hearing aids) Endocrine: No Gastrointestinal Disorders: No Genitourinary: No Headaches: Yes (Patient reports "severe headaches") Hypertension: Yes Implanted Vascular Access Dvce: No Insomnia: Yes Musculoskeletal: Yes Neurologic: Yes Psychiatric: Yes (PTSD , BIPOLAR DISORDER) Reproductive: Yes Respiratory: No Immunizations Current: Yes Migraines: Yes Radiation Therapy: No Seizures: Yes (History is noted in medical records.) Thyroid Disease: Yes ("nodule on thyroid") ?: Not Menopausal: Yes : 3 Para: 2 Miscarriage: 1 : 0 Tubal Ligation: Yes Past Surgical History AICD: No Section: Yes (x1) Cholecystectomy: Yes Ear Surgery: Yes (Tumor left side - 1985; Reconstructed right side - 1989) Gynecologic Surgery: Yes (HYSTERECTOMY) Hysterectomy: Yes Other Surgery: Yes (SEE MEDICAL RECORD) Social History Alcohol Use: No Tobacco Use: No (quit) Substance Use: No Allergies-Medications (Allergen,Severity, Reaction): Coded Allergies: penicillin G (Unverified Allergy, Severe, Rash, 04/28/18) Per pt. tramadol (Unverified Allergy, Severe, Hives, 04/28/18) sulfamethoxazole (Verified Allergy, Unknown, Hives, 04/28/18) trimethoprim (Verified Allergy, Unknown, Hives, 04/28/18) Reported Meds & Prescriptions Reported Meds & Active Scripts Active Zofran (Ondansetron HCl) 4 Mg Tab 4 Mg PO Q6HR PRN Reported Aspirin Low Dose (Aspirin) 81 Mg Chew 81 Mg CHEW DAILY Plavix (Clopidogrel Bisulfate) 75 Mg Tab 75 Mg PO DAILY Keppra (Levetiracetam) 500 Mg Tab 500 Mg PO TID Hydrocortisone 5 Mg Tab 5 Mg PO TID Take with food to decrease GI upset Metoprolol Succinate ER 24 HR (Metoprolol Succinate) 50 Mg Tab 50 Mg PO DAILY Amlodipine (Amlodipine Besylate) 10 Mg Tab 10 Mg PO DAILY Lorazepam 1 Mg Tab 1 Mg PO BID PRN Lexapro (Escitalopram Oxalate) 20 Mg Tab 20 Mg PO DAILY Review of Systems General / Constitutional: No: Fever, Chills HENT: Positive: Headaches, No: Lightheadedness Cardiovascular: No: Chest Pain or Discomfort Respiratory: No: Shortness of Breath Gastrointestinal: No: Nausea, Vomiting Musculoskeletal: Positive: Pain Skin: No Rash, No Change in Pigmentation Neurologic: No: Weakness, Dizziness Physical Exam Narrative GENERAL: Awake and alert, in no acute distress. SKIN: Focused skin assessment warm/dry. HEAD: Atraumatic. Normocephalic. EYES: Pupils equal and round. No scleral icterus. EOMI. ENT: Mucous membranes pink and moist. NECK: Trachea midline. No JVD. Cervical collar in place CARDIOVASCULAR: Regular rate and rhythm. No murmur appreciated. RESPIRATORY: No accessory muscle use. Clear to auscultation. Breath sounds equal bilaterally. MUSCULOSKELETAL: No obvious deformities. No clubbing. No cyanosis. No edema. Tender to palpation of the left hip. NEUROLOGICAL: Awake and alert. No obvious cranial nerve deficits. Motor grossly within normal limits. Normal speech. Sensation intact. Data Data Last Documented VS Vital Signs Date Time Temp Pulse Resp B/P (MAP) Pulse Ox O2 Delivery O2 Flow Rate FiO2 04/28/18 11:57 67 18 110/58 (75) 100 Room Air 04/28/18 10:[address] Brain W/O Iv Contrast(Rout) (04/28/18 ) Ct Cerv Spine W/O Contrast (04/28/18 ) Spine, Thoracic-Ap/Lat/Sw(3vw) (04/28/18 ) Pelvis, Ap Only (Routine) (04/28/18 ) Acetamin-Hydrocod 325-5 Mg ([place] 5-325 (04/28/18 11:00) Diatrizoate Liq ( Gastroview Liq) (04/28/18 10:40) Ketorolac Inj (Toradol Inj) (04/28/18 12:30) MDM Medical Decision Making Medical Screen Exam Complete: Yes Emergency Medical Condition: Yes Medical Record Reviewed: Yes Differential Diagnosis head injury vs neck injury vs musculoskeletal strain Narrative Course Patient is a 47 year old female who comes in complaining of pain after a fall. CT head and C-spine performed. XR pelvis and thoracic spine performed. All imaging shows no acute findings Last 24 hours Impressions Thoracic Spine X-Ray 04/28/18 0000 Signed Impressions: CONCLUSION: Minimal degenerative changes. No compression fracture Pelvis X-Ray 04/28/18 0000 Signed Impressions: CONCLUSION: No pelvic fracture Head CT 04/28/18 0000 Signed Impressions: CONCLUSION: 1. No acute intracranial abnormality. 2. Old right basal ganglia lacunar infarct. Cervical Spine CT 04/28/18 0000 Signed Impressions: CONCLUSION: 1. No fracture or subluxation Patient advised to take Tylenol or Ibuprofen as needed for pain. Given a [place] and Toradol here. Advised to follow up with her doctor. Advised to return to the ED as needed for any worsening symptoms. Diagnosis Primary Impression: Fall Qualified Codes: W19.XXXA - Unspecified fall, initial encounter Additional Impression: Musculoskeletal pain Patient Instructions: General Instructions, Musculoskeletal Pain (ED) Additional Instructions: Take Tylenol or Ibuprofen as needed for pain. Follow up with a primary care doctor. Return to the ED as needed for any worsening symptoms. Disposition: 01 DISCHARGE HOME Condition: Stable Dayna Villanueva MD Apr 28, 2018 11:53
[2018-04-28 11:57] VITALS: BP 110/58; PULSE 67; RESP 18; O2SAT 100
--- NOTE | 2018-04-28 11:58 | RADRPT ---
EXAM DATE: 04/28/2018 11:33 AM EDT AGE/SEX: 47 years / Female INDICATIONS: Trauma, fall from ladder today. CLINICAL DATA: This is the patient's initial encounter. Patient reports that signs and symptoms have been present for 1 day and indicates a pain score of 5/10. MEDICAL/SURGICAL HISTORY: Stroke. Hypertension. Hysterectomy. RADIATION DOSE: 56.35 CTDI (mGy) COMPARISON: [facility] [place], CT BRAIN W/O CONTRAST, 03/21/2018. . TECHNIQUE: CT of the head without contrast. Using automated exposure control and adjustment of the mA and/or kV according to patient size, radiation dose was kept as low as reasonably achievable to ob tain optimal diagnostic quality images. DICOM format image data is available electronically for revi ew and comparison. FINDINGS: Cerebrum: The ventricles are normal for age. No evidence of midline shift, mass lesion, hemorrhage or acute infarction. No extraaxial fluid collections are seen. Old right basal ganglia lacunar infar ct. Posterior Fossa: The cerebellum and brainstem are intact. The 4th ventricle is midline. The cerebe llopontine angle is unremarkable. Extracranial: The visualized portion of the orbits is intact. Skull: The calvaria is intact. No evidence of skull fracture. CONCLUSION: 1. No acute intracranial abnormality. 2. Old right basal ganglia lacunar infarct. Electronically signed by: Jerad Webster MD 04/28/2018 11:57 AM EDT
--- NOTE | 2018-04-28 11:59 | RADRPT ---
EXAM DATE: 04/28/2018 11:34 AM EDT AGE/SEX: 47 years / Female INDICATIONS: Trauma, fall from ladder today. CLINICAL DATA: This is the patient's initial encounter. Patient reports that signs and symptoms have been present for 1 day and indicates a pain score of 7/10. MEDICAL/SURGICAL HISTORY: Stroke. Hypertension. Hysterectomy. RADIATION DOSE: 12.33 CTDI (mGy) COMPARISON: No prior exams available for comparison. TECHNIQUE: Contiguous axial images were obtained using helical multirow detector technique. The vol umetric data was post-processed with multiplanar reconstruction in oblique axial, sagittal, and coron al planes. Using automated exposure control and adjustment of the mA and/or kV according to patient s ize, radiation dose was kept as low as reasonably achievable to obtain optimal diagnostic quality mary ges. DICOM format image data is available electronically for review and comparison. FINDINGS: Vertebrae: Normal vertebral body height. Scattered degenerative changes. Alignment: Normal. No subluxation. C2-3: The bony spinal canal is normal in size. No evidence of disc bulge or herniation. The neural foramina are bilaterally patent. C3-4: The bony spinal canal is normal in size. No evidence of disc bulge or herniation. The neural foramina are bilaterally patent. C4-5: The bony spinal canal is normal in size. No evidence of disc bulge or herniation. The neural foramina are bilaterally patent. C5-6: The bony spinal canal is normal in size. No evidence of disc bulge or herniation. The neural foramina are bilaterally patent. C6-7: Posterior disc osteophyte complex without canal stenosis. Moderate narrowing the left neural f oramen. Right neural foramen patent. C7-T1: The bony spinal canal is normal in size. No evidence of disc bulge or herniation. The neura l foramina are bilaterally patent. CONCLUSION: 1. No fracture or subluxation Electronically signed by: Jerad Webster MD 04/28/2018 11:58 AM EDT
--- NOTE | 2018-04-28 12:05 | RADRPT ---
EXAM DATE: 04/28/2018 11:39 AM EDT AGE/SEX: 47 years / Female INDICATIONS: Pain from fall off of a ladder. CLINICAL DATA: This is the patient's initial encounter. Patient reports that signs and symptoms have been present for 1 day and indicates a pain score of 5/10. MEDICAL/SURGICAL HISTORY: None. None. COMPARISON: No prior exams available for comparison. FINDINGS: Examination of the pelvis demonstrates no evidence of fracture or dislocation. Bony mineralization i s normal. There is no widening of the sacroiliac joints. No foreign body is identified. CONCLUSION: No pelvic fracture Electronically signed by: Jerad Webster MD 04/28/2018 12:04 PM EDT
--- NOTE | 2018-04-28 12:09 | RADRPT ---
EXAM DATE: 04/28/2018 11:39 AM EDT AGE/SEX: 47 years / Female INDICATIONS: Pain from fall off of a ladder. CLINICAL DATA: This is the patient's initial encounter. Patient reports that signs and symptoms have been present for 1 day and indicates a pain score of 5/10. MEDICAL/SURGICAL HISTORY: None. None. COMPARISON: No prior exams available for comparison. FINDINGS: The vertebral bodies are in normal alignment without evidence of compression deformity Bone density is normal for age. Soft tissues are grossly intact. Minimal degenerative changes. CONCLUSION: Minimal degenerative changes. No compression fracture Electronically signed by: Jerad Webster MD 04/28/2018 12:08 PM EDT
[2018-04-28] MEDS ORDERED: KETOROLAC TROMETHAMINE 60 MG/2 ML (IM) VIAL IM ONE (12:30)
[2018-04-28 13:06] VITALS: BP 112/54
== END 2018-04-28 13:10 | disposition home or self-care (01) ==
LOC: NEPD 10:39
DX: M79.1 Myalgia (principal); F31.9 Bipolar disorder, unspecified; W11.XXXA Fall on and from ladder, initial encounter
CPT/HCPCS: 70450; 72072; 72125; 72170; 96372; 99284; J1885; Q9963

== ENCOUNTER 2018-06-29 16:36 | Inpatient (IN) ==
[2018-06-29] MEDS ORDERED: Sod Chloride 0.9% Inj 1,000 ML IV.SIG ONE (16:57)
[2018-06-29 17:18] LABS: Baso # (Auto) 0.1 th/mm3 (0.0-0.2); Baso % (Auto) 1.2 % (0.0-2.0); Eos # (Auto) 0.1 th/mm3 (0.0-0.4); Eos % (Auto) 2.3 % (0.0-4.0); Hematocrit 38.7 % (35.0-46.0); Hemoglobin 13.1 gm/dL (11.6-15.3); Lymph # (Auto) 2.4 th/mm3 (1.0-4.8); Lymph % (Auto) 51.3 % (9.0-44.0); Mean Corpuscular HGB Conc 33.9 % (32.0-36.0); Mean Corpuscular Hemoglobin 30.6 pg (27.0-34.0); Mean Corpuscular Volume 90.3 fL (80.0-100.0); Mean Platelet Volume 8.6 fL (7.0-11.0); Mono # (Auto) 0.4 th/mm3 (0.0-0.9); Mono % (Auto) 7.5 % (0.0-8.0); Neut # (Auto) 1.8 th/mm3 (1.8-7.7); Neut % (Auto) 37.7 % (16.0-70.0); Platelet Count 201 th/mm3 (150-450); Red Blood Count 4.29 mil/mm3 (4.00-5.30); Red Cell Distribution Width 15.3 % (11.6-17.2); White Blood Count 4.7 th/mm3 (4.0-11.0)
--- NOTE | 2018-06-29 17:49 | ED ---
HPI General Chief Complaint: Overdose Stated Complaint: poss overdose Time Seen by Provider: 06/29/18 17:12 Source: patient and EMS Mode of arrival: EMS Limitations: altered mental status History of Present Illness HPI Narrative: 47-year-old female patient with history of migraine headaches, epilepsy, presents to the ER today because she states that she has been having 2 -3 days history of headaches, currently a 10 out of 10, having stiff neck, light bothers her, and states that she thinks is her migraine but feels like it is worse, had taken multiple doses of her migraine medication, Fioricet. She apparently had taken about 17 tablets of Fioricet today according to the patient 's who sends her in. She also complains of right sided weakness, and feels like she is having difficulty talking, and has facial asymmetry. She denies any chest pains or any other symptoms. She denies taking any other medications. She denies any suicidal ideation. She states that she was just having so much headache so she kept taking 2 tablets after 2 tablets after 2 tablets every few hours. Related Data Home Medications Medication Instructions Recorded Confirmed alprazolam [Xanax] 1 mg PO TID 06/29/18 06/29/18 atorvastatin 20 mg PO DAILY 06/29/18 06/29/18 escitalopram oxalate [Lexapro] 20 mg PO DAILY 06/29/18 06/29/18 omeprazole 40 mg PO DAILY 06/29/18 06/29/18 Allergies Allergy/AdvReac Type Severity Reaction Status Date / Time penicillin G Allergy Severe Rash Verified 06/19/18 12:35 tramadol Allergy Severe Hives Verified 06/19/18 12:35 sulfamethoxazole Allergy Unknown Hives Verified 04/28/18 11:27 trimethoprim Allergy Unknown Hives Verified 04/28/18 11:27 Review of Systems ROS Unobtainable ROS Unobtainable: unobtainable due to mental status PMFSH History History Provided By: Patient and Crossing [place] / EMT Medical History Medical History CVA, old, alterations of sensations (Acute) Hx of pancreatitis (Acute) Epilepsy (Acute) Migraine (Acute) Back pain (Acute) Surgical History Surgical History Hx of cholecystectomy (Acute) Social History Social History Substance History: No History of Abuse Second Hand Smoke Exposure: No Smoking Status: Former smoker Tobacco Type: Cigarettes How Often Do You Have a Drink Containing Alcohol: Never Recent Travel in [facility] within the Last 8 Weeks: No Recent Out of Country Travel within the Last 8 Weeks: No Exam Narrative Exam Narrative: GENERAL: Well-developed middle-age female patient currently in moderate distress. Awake, disoriented, slurred speech. Tearful on exam. SKIN: Focused skin assessment warm/dry. HEAD: Atraumatic. Normocephalic. EYES: Pupils equal and round. No scleral icterus. No injection or drainage. ENT: No nasal bleeding or discharge. Mucous membranes pink and moist. NECK: Trachea midline. No JVD. CARDIOVASCULAR: Regular rate and rhythm. No murmur appreciated. RESPIRATORY: No accessory muscle use. Clear to auscultation. Breath sounds equal bilaterally. GASTROINTESTINAL: Abdomen soft, non-tender, nondistended. Hepatic and splenic margins not palpable. MUSCULOSKELETAL: No obvious deformities. No clubbing. No cyanosis. No edema. NEUROLOGICAL: Awake and disoriented. Mild facial asymmetry. Right leg weakness. Slurred speech. PSYCHIATRIC: Appropriate mood and affect; insight and judgment poor. Course Initial Documented Vital Signs Pulse Rate 65 06/29/18 16:47 Respiratory Rate 20 06/29/18 16:47 Blood Pressure 123/68 06/29/18 16:47 Pulse Oximetry 100 06/29/18 16:47 Last Documented Vital Signs Pulse Rate 65 06/29/18 16:47 Respiratory Rate 20 06/29/18 16:47 Blood Pressure 123/68 06/29/18 16:47 Pulse Oximetry 100 06/29/18 16:58 Medical Decision Making MDM Narrative Medical decision making narrative: She has strokelike symptoms, CT of the brain did not show any signs of acute intracranial processes. Her symptoms are not consistent with one area of CVA, she has right-sided symptoms and states that she has a left sided facial paresthesias and facial droop. Tylenol level was within normal limits, and the amount of Tylenol she would have taken with her 325 mg Tylenol level Fioricet, 17 tablets, would be about 5 g which is under the overdose threshold for her. At this point, poison control has been called and they will follow along with the case. My plan would be to admit her for further treatment and evaluation. Case has been discussed with Dr. Stewart for admission. Medical Screen Exam Complete: Yes Emergency Medical Condition: Yes Differential Diagnosis Differential Diagnosis: Atypical migraine versus acute intracranial processes versus CVA versus malingering versus medication toxicity Lab Data Result diagrams: 06/29/18 17:00 06/29/18 17:00 Lab Results 06/29/18 06/29/18 06/29/18 Range/Units 17:00 17:00 17:00 WBC 4.7 (4.0-11.0) th/mm3 RBC 4.29 (4.00-5.30) mil/mm3 Hgb 13.1 (11.6-15.3) gm/dL Hct 38.7 (35.0-46.0) % MCV 90.3 (80.0-100.0) fL MCH 30.6 (27.0-34.0) pg MCHC 33.9 (32.0-36.0) % RDW 15.3 (11.6-17.2) % Plt Count 201 (150-450) th/mm3 MPV 8.6 (7.0-11.0) fL Neut % (Auto) 37.7 (16.0-70.0) % Lymph % (Auto) 51.3 H (9.0-44.0) % [place] % (Auto) 7.5 (0.0-8.0) % Eos % (Auto) 2.3 (0.0-4.0) % Baso % (Auto) 1.2 (0.0-2.0) % Neut # (Auto) 1.8 (1.8-7.7) th/mm3 Lymph # (Auto) 2.4 (1.0-4.8) th/mm3 [place] # (Auto) 0.4 (0.0-0.9) th/mm3 Eos # (Auto) 0.1 (0.0-0.4) th/mm3 Baso # (Auto) 0.1 (0.0-0.2) th/mm3 WBC Differential . Differential Comment Auto diff final PT (9.8-11.6) sec INR Ratio APTT (24.3-30.1) sec Sodium 143 (136-145) meq/L Potassium 4.1 (3.5-5.1) meq/L Chloride 111 H (98-107) meq/L Carbon Dioxide 23.0 (21.0-32.0) meq/L Anion Gap 9 (5-15) meq/L BUN 11 (7-18) mg/dL Creatinine 0.77 (0.50-1.00) mg/dL Estimated GFR 80 L (>89) mL/min Random Glucose 80 (74-106) mg/dL Calcium 8.9 (8.5-10.1) mg/dL Total Bilirubin 0.2 (0.2-1.0) mg/dL AST 37 (15-37) U/L ALT 57 H (10-53) U/L Alkaline Phosphatase 87 (45-117) U/L Total Protein 7.4 (6.4-8.2) g/dL Albumin 4.1 (3.4-5.0) g/dL Salicylates Less than 1.7 L (2.8-20.0) mg/dL Acetaminophen 29.5 (10.0-30.0) mcg/mL Serum Alcohol Less than 3 (0-5) mg/dL 06/29/18 Range/Units 17:45 WBC (4.0-11.0) th/mm3 RBC (4.00-5.30) mil/mm3 Hgb (11.6-15.3) gm/dL Hct (35.0-46.0) % MCV (80.0-100.0) fL MCH (27.0-34.0) pg MCHC (32.0-36.0) % RDW (11.6-17.2) % Plt Count (150-450) th/mm3 MPV (7.0-11.0) fL Neut % (Auto) (16.0-70.0) % Lymph % (Auto) (9.0-44.0) % [place] % (Auto) (0.0-8.0) % Eos % (Auto) (0.0-4.0) % Baso % (Auto) (0.0-2.0) % Neut # (Auto) (1.8-7.7) th/mm3 Lymph # (Auto) (1.0-4.8) th/mm3 [place] # (Auto) (0.0-0.9) th/mm3 Eos # (Auto) (0.0-0.4) th/mm3 Baso # (Auto) (0.0-0.2) th/mm3 WBC Differential Differential Comment PT 10.0 (9.8-11.6) sec INR 1.0 Ratio APTT 20.2 L (24.3-30.1) sec Sodium (136-145) meq/L Potassium (3.5-5.1) meq/L Chloride (98-107) meq/L Carbon Dioxide (21.0-32.0) meq/L Anion Gap (5-15) meq/L BUN (7-18) mg/dL Creatinine (0.50-1.00) mg/dL Estimated GFR (>89) mL/min Random Glucose (74-106) mg/dL Calcium (8.5-10.1) mg/dL Total Bilirubin (0.2-1.0) mg/dL AST (15-37) U/L ALT (10-53) U/L Alkaline Phosphatase (45-117) U/L Total Protein (6.4-8.2) g/dL Albumin (3.4-5.0) g/dL Salicylates (2.8-20.0) mg/dL Acetaminophen (10.0-30.0) mcg/mL Serum Alcohol (0-5) mg/dL Imaging Data Radiologist's impression: Head CT 06/29/18 17:12 CONCLUSION: 1. No acute findings in the brain. . Discharge Plan Discharge Disposition Patient Disposition: 30 Still Patient Discharge Condition Condition: Stable Discharge Details Anticipated Discharge Date: 06/29/18 Diagnosis: Migraine, CVA, old, alterations of sensations, Drug overdose Physicians Team ED Provider: Sheree Norman Primary Care Provider: UNKNOWN, Attending Provider: Eugenie Stewart Discharge Interventions Interventions: Vital Signs Last Done: 06/29/18 16:47 Status ED Status: Admitted Patient
[2018-06-29 17:57] LABS: Acetaminophen 29.5 mcg/mL (10.0-30.0); Alanine Aminotransferase 57 U/L (10-53)
[2018-06-29 17:59] LABS: Alkaline Phosphatase 87 U/L (45-117); Total Protein 7.4 g/dL (6.4-8.2)
[2018-06-29 18:14] LABS: Albumin 4.1 g/dL (3.4-5.0); Anion Gap 9 meq/L (5-15); Aspartate Aminotransferase 37 U/L (15-37); Blood Urea Nitrogen 11 mg/dL (7-18); Calcium 8.9 mg/dL (8.5-10.1); Chloride 111 meq/L (98-107); Glomerular Filtration Rate 80 mL/min (>89); Glucose,Random 80 mg/dL (74-106); Sodium 143 meq/L (136-145)
[2018-06-29 18:22] LABS: Potassium 4.1 meq/L (3.5-5.1)
[2018-06-29 18:58] LABS: Activated Partial Thrombo Time 20.2 sec (24.3-30.1)
--- NOTE | 2018-06-29 19:02 | CT ---
EXAM DATE: 06/29/2018 6:53 PM EDT AGE/SEX: 47 years / Female INDICATIONS: Cephalgia. Weakness. Slurred speech. CLINICAL DATA: This is the patient's initial encounter. Patient reports that signs and symptoms have been present for 1 day and indicates a pain score of 7/10. MEDICAL/SURGICAL HISTORY: Cerebrovascular disease. Epilepsy. History of stroke. Poly pharmacy. Non e. RADIATION DOSE: 56.43 CTDI (mGy) COMPARISON: [facility] [place], CT HEAD W/O CONTRAST, 06/19/2018. . TECHNIQUE: CT of the head without contrast. Using automated exposure control and adjustment of the mA and/or kV according to patient size, radiation dose was kept as low as reasonably achievable to ob tain optimal diagnostic quality images. DICOM format image data is available electronically for revi ew and comparison. FINDINGS: Cerebrum: The ventricles are normal for age. No evidence of midline shift, mass lesion, hemorrhage or acute infarction. Stable lacunar infarct in the head of the right caudate nucleus. No extraaxial fluid collections are seen. Posterior Fossa: The cerebellum and brainstem are intact. The 4th ventricle is midline. The cerebe llopontine angle is unremarkable. Extracranial: The visualized portion of the orbits is intact. Skull: The calvaria is intact. No evidence of skull fracture. CONCLUSION: 1. No acute findings in the brain. . Electronically signed by: Padilla Dorsey MD 06/29/2018 7:01 PM EDT
[2018-06-29] MEDS ORDERED: Bisacodyl 10 MG Supp RECTAL PRN (20:47)
--- NOTE | 2018-06-29 20:58 | P.HP ---
History of Present Illness Service: [facility] Primary Care Physician: UNKNOWN History of Present Illness: 47-year-old female with past medical history significant for adrenal deficiency , known pituitary tumor, thyroid nodule, seizure disorder, coronary artery disease, hypertension, hyperlipidemia, depression/anxiety, history of previous CVA and history of ovarian cancer presents to the emergency department for the evaluation of Fioricet overdose. The patient reports she has had a severe headache for approximately 4 days. She states she took about 15 Fioricet over the past day and a half. Her ultimately ended up taking the medication from her and calling 911. She states she has had accompanying right-sided weakness for the past 2 days. She denies any visual changes. No nausea/ vomiting/diarrhea. Positive sensitivity to light. No chest pain or shortness of breath. Inpatient Certification: I certify that the inpatient services were ordered in accordance with Medicare regulations governing the order. This includes certification that hospital inpatient services are reasonable and necessary and in the case of services not specified as inpatient-only under 42 CFR 419.22(n), that they are appropriately provided as inpatient services in accordance to with the 2-midnight benchmark under 43 CFR 412.3(e) Review of Systems All other systems reviewed negative except as stated in HPI PMFSH - History History Provided By: Patient, Human Resources Specialist / EMT - Medical History Medical History: Medical History (Last Updated 06/29/18 @ 20:47 by Eugenie Stewart MD) CVA, old, alterations of sensations (Acute) Hx of pancreatitis (Acute) Epilepsy (Acute) Migraine (Acute) Back pain (Acute) Adrenal insufficiency Coronary artery disease Depression with anxiety H/O: hysterectomy History of ovarian cancer Hyperlipidemia Hypertension Pituitary tumor Thyroid nodule - Surgical History Surgical History: Surgical History (Last Reviewed 06/29/18 @ 17:48 by Sheree Norman MD) Hx of cholecystectomy (Acute) - Tobacco History Second Hand Smoke Exposure: No Smoking Status: Former smoker Tobacco Type: Cigarettes - Alcohol History How Often Do You Have a Drink Containing Alcohol: Never - Substance Use History Substance History: No History of Abuse - Travel History Recent Travel in the [place] Within the Last 8 Weeks: No Recent Travel Out of the Country Within the Last 8 Weeks: No - Immunization History Tetanus Immunization: Unsure Hx Influenza Vaccine This Season: No Medications and Allergies Allergies Allergy/AdvReac Type Severity Reaction Status Date / Time penicillin G Allergy Severe Rash Verified 06/19/18 12:35 tramadol Allergy Severe Hives Verified 06/19/18 12:35 sulfamethoxazole Allergy Unknown Hives Verified 04/28/18 11:27 trimethoprim Allergy Unknown Hives Verified 04/28/18 11:27 Home Medications Medication Instructions Recorded Confirmed Type alprazolam [Xanax] 1 mg PO TID 06/29/18 06/29/18 History atorvastatin 20 mg PO DAILY 06/29/18 06/29/18 History escitalopram oxalate [Lexapro] 20 mg PO DAILY 06/29/18 06/29/18 History omeprazole 40 mg PO DAILY 06/29/18 06/29/18 History Exam Vital signs: Vital Signs 06/29/18 16:47 06/29/18 16:58 Pulse Rate 65 Respiratory Rate 20 Blood Pressure 123/68 Pulse Oximetry 100 100 Intake & Output 06/29/18 06/29/18 06/30/18 06:59 18:59 06:59 Weight 49.895 kg Narrative: Gen.: No acute distress Head: Normocephalic. Atraumatic. EENT: Pupils equal round and reactive to light. Nose without drainage. Airway intact. Throat without injection. Cardiovascular: Regular rate and rhythm. No murmurs, rubs or gallops. Respiratory: Lungs clear to auscultation bilaterally. No wheezes or rhonchi. Abdomen: Soft, nontender, nondistended. No peritoneal signs. Musculoskeletal: No gross deformities. No edema. Skin: No obvious rashes or erythema. Neuro: Cranial nerves II through XII intact. Patient reports decreased sensation on the entire right side including the face and upper and lower extremities. Handgrip strength on the right 3/5. Right upper and lower extremity strength 3/5. Patient's participation in the exam is questionable. Results - Labs CBC & Chem 7: 06/29/18 17:00 06/29/18 17:00 Labs: Laboratory Results - last 24 hr 06/29/18 06/29/18 06/29/18 17:00 17:00 17:00 WBC 4.7 RBC 4.29 Hgb 13.1 Hct 38.7 MCV 90.3 MCH 30.6 MCHC 33.9 RDW 15.3 Plt Count 201 MPV 8.6 Neut % (Auto) 37.7 Lymph % (Auto) 51.3 H Bollinger % (Auto) 7.5 Eos % (Auto) 2.3 Baso % (Auto) 1.2 Neut # (Auto) 1.8 Lymph # (Auto) 2.4 Bollinger # (Auto) 0.4 Eos # (Auto) 0.1 Baso # (Auto) 0.1 WBC Differential . Differential Comment Auto diff final PT INR APTT Sodium 143 Potassium 4.1 Chloride 111 H Carbon Dioxide 23.0 Anion Gap 9 BUN 11 Creatinine 0.77 Estimated GFR 80 L Random Glucose 80 Calcium 8.9 Total Bilirubin 0.2 AST 37 ALT 57 H Alkaline Phosphatase 87 Total Protein 7.4 Albumin 4.1 Salicylates Less than 1.7 L Acetaminophen 29.5 Serum Alcohol Less than 3 06/29/18 17:45 WBC RBC Hgb Hct MCV MCH MCHC RDW Plt Count MPV Neut % (Auto) Lymph % (Auto) Bollinger % (Auto) Eos % (Auto) Baso % (Auto) Neut # (Auto) Lymph # (Auto) Bollinger # (Auto) Eos # (Auto) Baso # (Auto) WBC Differential Differential Comment PT 10.0 INR 1.0 APTT 20.2 L Sodium Potassium Chloride Carbon Dioxide Anion Gap BUN Creatinine Estimated GFR Random Glucose Calcium Total Bilirubin AST ALT Alkaline Phosphatase Total Protein Albumin Salicylates Acetaminophen Serum Alcohol - Imaging Impressions Head CT 06/29/18 17:12 CONCLUSION: 1. No acute findings in the brain. . Caprini VTE Risk Assessment Caprini VTE Risk Assessment: No/Low Risk (score <= 1) Caprini Risk Assessment Model: Point Value = 1 Point Value = 2 Point Value = 3 Point Value = 5 Age 41-60 Minor surgery BMI > 25 kg/m2 Swollen legs Varicose veins or History of unexplained or recurrent spontaneous Oral contraceptives or hormone replacement Sepsis (< 1 month) Serious lung disease, including pneumonia (< 1 month) Abnormal pulmonary function Acute myocardial infarction Congestive heart failure (< 1 month) History of inflammatory bowel disease Medical patient at bed rest Age 61-74 Arthroscopic surgery Major open surgery (> 45 min) Laparoscopic surgery (> 45 min) Malignancy Confined to bed (> 72 hours) Immobilizing plaster cast Central venous access Age >= 75 History of VTE Family history of VTE Factor V Leiden Prothrombin [id number] Lupus anticoagulant Anticardiolipin antibodies Elevated serum homocysteine Heparin-induced thrombocytopenia Other congenital or acquired thrombophilia Stroke (< 1 month) Elective arthroplasty Hip, pelvis, or leg fracture Acute spinal cord injury (< 1 month) Prophylaxis Regimen: Total Risk Factor Score Risk Level Prophylaxis Regimen 0-1 Low Early ambulation 2 Moderate Order ONE of the following: *Sequential Compression Device (SCD) *Heparin 5000 units SQ BID 3-4 Higher Order ONE of the following medications: *Heparin 5000 units SQ TID *Enoxaparin/Lovenox 40 mg SQ daily (WT < 150 kg, CrCl > 30 mL/min) *Enoxaparin/Lovenox 30 mg SQ daily (WT < 150 kg, CrCl > 10-29 mL/min) *Enoxaparin/Lovenox 30 mg SQ BID (WT < 150 kg, CrCl > 30 mL/min) AND/OR *Sequential Compression Device (SCD) 5 or more Highest Order ONE of the following medications: *Heparin 5000 units SQ TID (Preferred with Epidurals) *Enoxaparin/Lovenox 40 mg SQ daily (WT < 150 kg, CrCl > 30 mL/min) *Enoxaparin/Lovenox 30 mg SQ daily (WT < 150 kg, CrCl > 10-29 mL/min) *Enoxaparin/Lovenox 30 mg SQ BID (WT < 150 kg, CrCl > 30 mL/min) AND *Sequential Compression Device (SCD) Assessment and Plan - Plan Assessment/plan: 1. Fioricet overdose Acetaminophen level 29.5 on arrival to the emergency department Salicylate level 1.7 Poison control recommends repeat EKG and acetaminophen level -pending Monitor on telemetry 2. Right-sided weakness/history of CVA Patient reports history of right upper and lower extremity weakness [address] head negative for acute process, stable lacunar infarct Carotid ultrasound, brain MRI/MRA pending Holding aspirin at this time secondary to medication overdose 3. Seizure disorder Continue home Keppra once medications are 4. Depression/anxiety Continue home Lexapro and Xanax 5. Hypertension/hyperlipidemia Continue home medications 6. Adrenal insufficiency Patient reports she was taken off her steroid medications by her vp marketing Continue outpatient follow-up 7. Pituitary tumor/thyroid nodule Continue outpatient follow-up FEN N.p.o. Electrolytes: Monitor and replete as needed NS at 100 cc/hour
[2018-06-29] MEDS ORDERED: Dextrose 50% in Water 50 ML Vial IV.PUSH PRN (21:18)
--- NOTE | 2018-06-29 22:34 | US ---
EXAM DATE: 06/29/2018 10:19 PM EDT AGE/SEX: 47 years / Female INDICATIONS: Right sided weakness. CLINICAL DATA: This is the patient's initial encounter. Patient reports that signs and symptoms have been present for 4 - 6 days and indicates a pain score of 0/10. MEDICAL/SURGICAL HISTORY: Carcinoma, ovarian. Pancreatitis. Hypertension. Adrenal insufficie ncy. Coronary artery disease. Cerebrovascular accident. Epilepsy. Hyperlipidemia. Migraines. Pituitar y tumor. Thyroid nodules. Hysterectomy. Cholecystectomy. COMPARISON: [facility] – [place] CAROTID ARTERIES, 03/10/2018. . VELOCITY PARAMETERS: ICA/CCA Ratio: Right 1.1 , Left 1.5 ICA: Right 83 cm/sec, Left 102 cm/sec CCA: Right 79 cm/sec, Left 68 cm/sec ECA: Right 67 cm/sec, Left 60 cm/sec Vertebral: Right 37 cm/sec antegrade, Left 31 cm/sec antegrade FINDINGS: Right Carotid: No significant plaque is visualized.The waveforms are within normal limits. Left Carotid: No significant plaque is visualized. The waveforms are within normal limits. Other: None. CONCLUSION: 1. Right Internal Carotid Artery: Findings indicate <50% stenosis. 2. Left Internal Carotid Artery: Findings indicate <50% stenosis. Electronically signed by: Padilla Dorsey MD 06/29/2018 10:32 PM EDT
[2018-06-29] MEDS: Sod Chloride 0.9% Inj 1,000 ML IV.CONT SCH (23:10)
[2018-06-30 02:25] LABS: Baso # (Auto) 0.1 th/mm3 (0.0-0.2); Baso % (Auto) 1.1 % (0.0-2.0); Eos # (Auto) 0.1 th/mm3 (0.0-0.4); Eos % (Auto) 2.8 % (0.0-4.0); Hematocrit 37.4 % (35.0-46.0); Hemoglobin 12.6 gm/dL (11.6-15.3); Lymph # (Auto) 2.4 th/mm3 (1.0-4.8); Mean Corpuscular HGB Conc 33.7 % (32.0-36.0); Mean Corpuscular Hemoglobin 30.1 pg (27.0-34.0); Mean Corpuscular Volume 89.4 fL (80.0-100.0); Mean Platelet Volume 8.4 fL (7.0-11.0); Mono # (Auto) 0.4 th/mm3 (0.0-0.9); Mono % (Auto) 7.6 % (0.0-8.0); Neut # (Auto) 1.9 th/mm3 (1.8-7.7); Neut % (Auto) 39.5 % (16.0-70.0); Platelet Count 197 th/mm3 (150-450); Red Blood Count 4.19 mil/mm3 (4.00-5.30); Red Cell Distribution Width 15.6 % (11.6-17.2); White Blood Count 4.8 th/mm3 (4.0-11.0)
[2018-06-30 02:42] LABS: Alanine Aminotransferase 58 U/L (10-53); Albumin 3.8 g/dL (3.4-5.0); Anion Gap 7 meq/L (5-15); Aspartate Aminotransferase 31 U/L (15-37); Blood Urea Nitrogen 7 mg/dL (7-18); Calcium 8.3 mg/dL (8.5-10.1); Carbon Dioxide 23.9 meq/L (21.0-32.0); Chloride 113 meq/L (98-107); Cholesterol 231 mg/dL (120-200); Glomerular Filtration Rate 88 mL/min (>89); Glucose,Random 92 mg/dL (74-106); Potassium 3.8 meq/L (3.5-5.1); Sodium 144 meq/L (136-145); Triglycerides 182 mg/dL (42-150)
[2018-06-30 02:45] LABS: Alkaline Phosphatase 80 U/L (45-117); Chol/HDL Ratio 2.64 Ratio; HDL Cholesterol 87.4 mg/dL (40.0-60.0); LDL Cholesterol,Calculated 107 mg/dL (0-99); Total Protein 6.7 g/dL (6.4-8.2)
[2018-06-30] MEDS: Insulin NovoLOG Aspart Correctional Sugar Inj SQ SCH ×5 (03:27→20:50)
[2018-06-30] MEDS: Metoprolol Tartrate 50 MG Tablet PO SCH (11:20)
[2018-06-30] MEDS: Sod Chloride 0.9% Inj 1,000 ML IV.CONT SCH ×2 (11:23→19:32)
--- NOTE | 2018-06-30 11:34 | P.CONNEU ---
History of Present Illness Service: Neurology Primary Care Provider: UNKNOWN Family Provider: UNKNOWN Chief Complaint: Headaches History of Present Illness: 47-year-old female admitted for headaches. His chronic daily headaches for decades. States these headaches similar semiology throbbing she can stop them. She expressed some interest in morphine. She takes Fioricet 2 tablets every 6 hours and she states she has been doing this for quite some time. Headaches are holocephalic mild photophobia phonophobia. In addition admits to moderate level of anxiety for which she takes chronic Xanax. She has had Benadryl Zofran and Reglan in the past with some success Seen by neurology 03/25/2018 several imaging studies performed which were stable with no significant vaso-occlusive disease. She has a history of seizures managed by outpatient neurology in addition to management of her headaches which she has had for decades. She also receives psychiatric care has been diagnosed with PTSD in addition to depression. Review of Systems All other systems reviewed negative except as stated in HPI PMFSH - History History Provided By: Patient - Medical History Medical History: Medical History (Last Reviewed 06/30/18 @ 10:21 by Carole Worthington) CVA, old, alterations of sensations (Acute) Hx of pancreatitis (Acute) Epilepsy (Acute) Migraine (Acute) Back pain (Acute) Adrenal insufficiency Coronary artery disease Depression with anxiety H/O: hysterectomy History of ovarian cancer Hyperlipidemia Hypertension Pituitary tumor Thyroid nodule - Surgical History Surgical History: Surgical History (Last Reviewed 06/30/18 @ 10:21 by Carole Worthington) Hx of cholecystectomy (Acute) - Tobacco History Second Hand Smoke Exposure: No Tobacco Use In Past 30 Days: No Smoking Status: Former smoker Tobacco Type: Cigarettes - Alcohol History How Often Do You Have a Drink Containing Alcohol: Never - Substance Use History Substance History: No History of Abuse - Travel History Recent Travel in the [place] Within the Last 8 Weeks: No Recent Travel Out of the Country Within the Last 8 Weeks: No - Immunization History Tetanus Immunization: Unsure Hx Influenza Vaccine This Season: No Medications and Allergies Active Medications: Active Medications Al Hydroxide/Mg Hydroxide (Milk Of José Liq) 30 ml PO Q12H PRN PRN Reason: Mild Constipation Aspirin (Aspirin Chew) 81 mg PO DAILY [facility] Last Admin: 06/30/18 11:19 Dose: 81 mg Atorvastatin Calcium (Lipitor) 20 mg PO DAILY [facility] Last Admin: 06/30/18 11:20 Dose: 20 mg Bisacodyl (Dulcolax Supp) 10 mg RECTAL DAILY PRN PRN Reason: SEVERE CONSITIPATION Dextrose (D50w Vial) 50 ml IV.PUSH UNSCH PRN PRN Reason: PER HYPOGLYCEMIA PROTOCOL Glucagon (Glucagon Inj) 1 mg OTHER PRN PRN PRN Reason: for Hypoglycemia Protocol Sodium Chloride (Ns Inj) 1,000 mls @ 100 mls/hr IV.CONT .Q10H [facility] Last Admin: 06/30/18 11:23 Dose: Not Given Insulin Aspart (Novolog Insulin Correctional Sugar Inj) 0 unit SQ ACHS AND 3AM GOOD; Protocol Last Admin: 06/30/18 10:17 Dose: Not Given Lactulose (Lactulose Liq) 30 ml PO DAILY PRN PRN Reason: SEVERE CONSITIPATION Levetiracetam (Keppra) 250 mg PO Q8HR GOOD Metoprolol Tartrate (Lopressor) 25 mg PO DAILY [facility] Last Admin: 06/30/18 11:20 Dose: 25 mg Pantoprazole Sodium (Protonix) 40 mg PO HS GOOD Sennosides (Senokot) 17.2 mg PO Q12H PRN PRN Reason: Moderate Constipation Sodium Chloride (Ns Flush) 2 ml IV.FLUSH BID GOOD Last Admin: 06/30/18 10:17 Dose: Not Given Sodium Chloride (Ns Flush) 2 ml IV.FLUSH PRN PRN PRN Reason: FLUSH AFTER USING IV ACCESS Allergies Allergy/AdvReac Type Severity Reaction Status Date / Time penicillin G Allergy Severe Rash Verified 06/29/18 23:10 tramadol Allergy Severe Hives Verified 06/29/18 23:10 sulfamethoxazole Allergy Unknown Hives Verified 06/29/18 23:10 trimethoprim Allergy Unknown Hives Verified 06/29/18 23:10 Home Medications Medication Instructions Recorded Confirmed Type alprazolam [Xanax] 1 mg PO TID 06/29/18 06/29/18 History amlodipine 20 mg PO DAILY 06/29/18 06/29/18 History aspirin 81 mg PO DAILY 06/29/18 06/29/18 History atorvastatin 20 mg PO DAILY 06/29/18 06/29/18 History clopidogrel [Plavix] 75 mg PO DAILY 06/29/18 06/29/18 History escitalopram oxalate [Lexapro] 20 mg PO DAILY 06/29/18 06/29/18 History levetiracetam [Keppra] 250 mg PO Q8HR 06/29/18 06/29/18 History metoprolol tartrate [Lopressor] 25 mg PO DAILY 06/29/18 06/29/18 History omeprazole 40 mg PO HS 06/29/18 06/29/18 History hydrocodone-acetaminophen [Lorcet 1 tab PO Q8H PRN 06/30/18 06/30/18 History (hydrocodone)] Exam Vital signs: Vital Signs 06/29/18 16:47 06/29/18 16:58 06/30/18 00:00 Temperature 98.0 F Pulse Rate 65 73 Respiratory Rate 20 19 Blood Pressure 123/68 152/87 H Pulse Oximetry 100 100 100 06/30/18 00:50 06/30/18 02:14 06/30/18 04:00 Temperature 97.7 F Pulse Rate 69 62 81 Respiratory Rate 19 Blood Pressure 148/72 H Pulse Oximetry 100 06/30/18 06:14 06/30/18 08:00 Temperature 97.7 F Pulse Rate 61 97 H Respiratory Rate 18 Blood Pressure 143/97 H Pulse Oximetry 95 Intake & Output 06/29/18 06/30/18 06/30/18 18:59 06:59 18:59 Intake Total 1000 / 1000 240 / 240 Balance 1000 / 1000 240 / 240 Weight 49.895 kg 55.3 kg Intake: IV 1000 / 1000 Oral 240 / 240 Other: # Voids 2 Weight On Admission 48.988 kg Narrative: .Gen.: No acute distress, crying at times the interview somewhat histrionic Head: Normocephalic. Atraumatic. EENT: Pupils equal round and reactive to light. Abdomen: Soft, nontender, nondistended. Musculoskeletal: No gross deformities. No edema. Skin: No obvious rashes or erythema. Neuro: Awake alert oriented 3 articulate printers appear intact no facial asymmetry moving all limbs to gravity somewhat anxious during the interview - Constitutional no acute distress - Routine HEENT Exam Head: Present: normocephalic Eye: Present: EOMI Results - Labs CBC & Chem 7: 06/30/18 01:57 06/30/18 01:57 Labs: Laboratory Results - last 24 hr 06/29/18 06/29/18 06/29/18 17:00 17:00 17:00 WBC 4.7 RBC 4.29 Hgb 13.1 Hct 38.7 MCV 90.3 MCH 30.6 MCHC 33.9 RDW 15.3 Plt Count 201 MPV 8.6 Neut % (Auto) 37.7 Lymph % (Auto) 51.3 H Hill % (Auto) 7.5 Eos % (Auto) 2.3 Baso % (Auto) 1.2 Neut # (Auto) 1.8 Lymph # (Auto) 2.4 Hill # (Auto) 0.4 Eos # (Auto) 0.1 Baso # (Auto) 0.1 WBC Differential . Differential Comment Auto diff final PT INR APTT Sodium 143 Potassium 4.1 Chloride 111 H Carbon Dioxide 23.0 Anion Gap 9 BUN 11 Creatinine 0.77 Estimated GFR 80 L POC Glucose Random Glucose 80 Calcium 8.9 Total Bilirubin 0.2 AST 37 ALT 57 H Alkaline Phosphatase 87 Total Protein 7.4 Albumin 4.1 Triglycerides Cholesterol LDL Cholesterol, Calc HDL Cholesterol Cholesterol/HDL Ratio Salicylates Less than 1.7 L Acetaminophen 29.5 Serum Alcohol Less than 3 06/29/18 06/29/18 06/30/18 17:00 17:45 01:57 WBC 4.8 RBC 4.19 Hgb 12.6 Hct 37.4 MCV 89.4 MCH 30.1 MCHC 33.7 RDW 15.6 Plt Count 197 MPV 8.4 Neut % (Auto) 39.5 Lymph % (Auto) 49.0 H Hill % (Auto) 7.6 Eos % (Auto) 2.8 Baso % (Auto) 1.1 Neut # (Auto) 1.9 Lymph # (Auto) 2.4 Hill # (Auto) 0.4 Eos # (Auto) 0.1 Baso # (Auto) 0.1 WBC Differential . Differential Comment Auto diff final PT 10.0 INR 1.0 APTT 20.2 L Sodium Potassium Chloride Carbon Dioxide Anion Gap BUN Creatinine Estimated GFR POC Glucose Random Glucose Calcium Total Bilirubin AST ALT Alkaline Phosphatase Total Protein Albumin Triglycerides Cholesterol LDL Cholesterol, Calc HDL Cholesterol Cholesterol/HDL Ratio Salicylates Acetaminophen 29.4 Serum Alcohol 06/30/18 06/30/18 06/30/18 01:57 01:57 03:16 WBC RBC Hgb Hct MCV MCH MCHC RDW Plt Count MPV Neut % (Auto) Lymph % (Auto) Hill % (Auto) Eos % (Auto) Baso % (Auto) Neut # (Auto) Lymph # (Auto) Hill # (Auto) Eos # (Auto) Baso # (Auto) WBC Differential Differential Comment PT INR APTT Sodium 144 Potassium 3.8 Chloride 113 H Carbon Dioxide 23.9 Anion Gap 7 BUN 7 Creatinine 0.71 Estimated GFR 88 L POC Glucose 85 Random Glucose 92 Calcium 8.3 L Total Bilirubin 0.2 AST 31 ALT 58 H Alkaline Phosphatase 80 Total Protein 6.7 D Albumin 3.8 Triglycerides 182 H Cholesterol 231 H LDL Cholesterol, Calc 107 H HDL Cholesterol 87.4 H Cholesterol/HDL Ratio 2.64 Salicylates Acetaminophen Less than 2.0 L Serum Alcohol 06/30/18 08:29 WBC RBC Hgb Hct MCV MCH MCHC RDW Plt Count MPV Neut % (Auto) Lymph % (Auto) Hill % (Auto) Eos % (Auto) Baso % (Auto) Neut # (Auto) Lymph # (Auto) Hill # (Auto) Eos # (Auto) Baso # (Auto) WBC Differential Differential Comment PT INR APTT Sodium Potassium Chloride Carbon Dioxide Anion Gap BUN Creatinine Estimated GFR POC Glucose 93 Random Glucose Calcium Total Bilirubin AST ALT Alkaline Phosphatase Total Protein Albumin Triglycerides Cholesterol LDL Cholesterol, Calc HDL Cholesterol Cholesterol/HDL Ratio Salicylates Acetaminophen Serum Alcohol - Imaging Impressions Carotid Doppler Study 06/29/18 00:00 CONCLUSION: 1. Right Internal Carotid Artery: Findings indicate <50% stenosis. 2. Left Internal Carotid Artery: Findings indicate <50% stenosis. Head CT 06/29/18 17:12 CONCLUSION: 1. No acute findings in the brain. . Review/Management - Diagnosis (1) Depression Code(s): F32.9 - Major depressive disorder, single episode, unspecified Status : Acute Current Visit: Yes (2) PTSD (post-traumatic stress disorder) Code(s): F43.10 - Post-traumatic stress disorder, unspecified Status: Acute Current Visit: Yes (3) Epilepsy Code(s): G40.909 - Epilepsy, unspecified, not intractable, without status epilepticus Status: Acute Current Visit: No (4) Migraine Code(s): G43.909 - Migraine, unspecified, not intractable, without status migrainosus Status: Acute Current Visit: Yes (5) Back pain Code(s): M54.9 - Dorsalgia, unspecified Status: Acute Current Visit: No (6) Chronic daily headache Code(s): R51 - Headache Status: Acute Current Visit: Yes (7) Anxiety Code(s): F41.9 - Anxiety disorder, unspecified Status: Acute Current Visit: Yes (8) Chronic pain syndrome Code(s): G89.4 - Chronic pain syndrome Status: Acute Current Visit: Yes - Review/Management Plan: Chronic daily headaches for years with recurrent exacerbations. This may be medication induced headache secondary to chronic Fioricet use Alternate medications tried: She states Elavil made her sleepy, Depakote and Topamax did not work. She is followed by outpatient neurologist in outpatient pain management and receives hydrocodone which she takes 3 times a day and has received MARSHA injections. Recommendations We will try IV Reglan and Benadryl. Side effects benefits discussed with patient agrees to treatment Phenobarbital to assist with Fioricet withdrawal Stop Fioricet continue the rest of her home medications Anticipate discharge in 1-2 days Discussed with patient she should limit her opiate use in addition to limit her use of Fioricet PT evaluation Discussed with medical (5) Back pain Qualifiers: Back pain location: back pain in unspecified location Chronicity: chronic Back pain laterality: bilateral Qualified Code(s): M54.9 - Dorsalgia, unspecified; G89.29 - Other chronic pain
[2018-06-30 11:54] LABS: Hemoglobin A1c 5.8 % (4.3-6.0)
[2018-06-30] MEDS ORDERED: Metoclopramide Inj 10 MG in Sodium Chlor 0.9% Inj 50 ML IV.SIG ONE (12:31)
--- NOTE | 2018-06-30 13:09 | ECG ---
Date Performed: 06/29/2018 Time Performed: 18:05:20 PTAGE: 47 years EKG: Sinus rhythm POSSIBLE RIGHT VENTRICULAR CONDUCTION DELAY BORDERLINE ECG Nonspecific ST and T wave abnormalities C ompared to PREVIOUS TRACING nonspecific changes are slightly more prominent PREVIOUS TRACIN06/19 12.36 DOCTOR: Adonay Ricketts Interpretating Date/Time 06/30/2018 13:09:24
--- NOTE | 2018-06-30 13:10 | ECG ---
Date Performed: 06/30/2018 Time Performed: 02:54:34 PTAGE: 47 years EKG: Sinus rhythm . Septal T wave changes are nonspecific Since previous tracing, no significant change noted Borderlin e ECG PREVIOUS TRACING : 06/29/2018 18.05 DOCTOR: Adonay Ricketts Interpretating Date/Time 06/30/2018 13:09:33
[2018-06-30] MEDS: levETIRAcetam 250 MG Tablet PO SCH ×2 (14:01→21:03)
--- NOTE | 2018-06-30 14:18 | P.PN ---
Subjective Interval history: Nursing denies any deterioration since last night apart from the patient complaining of her headache. In the room the patient starts complaining much more of her headache. Neurology is in the room with me at the same time. Patient says that Topamax did not work nor does Depakote. Physical Exam Vital signs: Vital Signs 06/29/18 16:47 06/29/18 16:58 06/30/18 00:00 Temperature 98.0 F Pulse Rate 65 73 Respiratory Rate 20 19 Blood Pressure 123/68 152/87 H Pulse Oximetry 100 100 100 06/30/18 00:50 06/30/18 02:14 06/30/18 04:00 Temperature 97.7 F Pulse Rate 69 62 81 Respiratory Rate 19 Blood Pressure 148/72 H Pulse Oximetry 100 06/30/18 06:14 06/30/18 08:00 06/30/18 12:50 Temperature 97.7 F 98.1 F Pulse Rate 61 97 H 101 H Respiratory Rate 18 18 Blood Pressure 143/97 H 142/79 H Pulse Oximetry 95 97 Intake & Output 06/29/18 06/30/18 06/30/18 18:59 06:59 18:59 Intake Total 1000 / 1000 240 / 240 Balance 1000 / 1000 240 / 240 Weight 49.895 kg 55.3 kg Intake: IV 1000 / 1000 Oral 240 / 240 Other: # Voids 2 Weight On Admission 48.988 kg Narrative: Anxious affect Unlabored breathing No facial droop, no slurred speech, Grossly intact range of motion of bilateral upper extremities Results - Labs CBC & Chem 7: 06/30/18 01:57 06/30/18 01:57 Laboratory Results - last 24 hr 06/29/18 06/29/18 06/29/18 17:00 17:00 17:00 WBC 4.7 RBC 4.29 Hgb 13.1 Hct 38.7 MCV 90.3 MCH 30.6 MCHC 33.9 RDW 15.3 Plt Count 201 MPV 8.6 Neut % (Auto) 37.7 Lymph % (Auto) 51.3 H [place] % (Auto) 7.5 Eos % (Auto) 2.3 Baso % (Auto) 1.2 Neut # (Auto) 1.8 Lymph # (Auto) 2.4 [place] # (Auto) 0.4 Eos # (Auto) 0.1 Baso # (Auto) 0.1 WBC Differential . Differential Comment Auto diff final PT INR APTT Sodium 143 Potassium 4.1 Chloride 111 H Carbon Dioxide 23.0 Anion Gap 9 BUN 11 Creatinine 0.77 Estimated GFR 80 L POC Glucose Random Glucose 80 Calcium 8.9 Total Bilirubin 0.2 AST 37 ALT 57 H Alkaline Phosphatase 87 Total Protein 7.4 Albumin 4.1 Triglycerides Cholesterol LDL Cholesterol, Calc HDL Cholesterol Cholesterol/HDL Ratio Salicylates Less than 1.7 L Acetaminophen 29.5 Serum Alcohol Less than 3 06/29/18 06/29/18 06/30/18 17:00 17:45 01:57 WBC 4.8 RBC 4.19 Hgb 12.6 Hct 37.4 MCV 89.4 MCH 30.1 MCHC 33.7 RDW 15.6 Plt Count 197 MPV 8.4 Neut % (Auto) 39.5 Lymph % (Auto) 49.0 H [place] % (Auto) 7.6 Eos % (Auto) 2.8 Baso % (Auto) 1.1 Neut # (Auto) 1.9 Lymph # (Auto) 2.4 [place] # (Auto) 0.4 Eos # (Auto) 0.1 Baso # (Auto) 0.1 WBC Differential . Differential Comment Auto diff final PT 10.0 INR 1.0 APTT 20.2 L Sodium Potassium Chloride Carbon Dioxide Anion Gap BUN Creatinine Estimated GFR POC Glucose Random Glucose Calcium Total Bilirubin AST ALT Alkaline Phosphatase Total Protein Albumin Triglycerides Cholesterol LDL Cholesterol, Calc HDL Cholesterol Cholesterol/HDL Ratio Salicylates Acetaminophen 29.4 Serum Alcohol 06/30/18 06/30/18 06/30/18 01:57 01:57 03:16 WBC RBC Hgb Hct MCV MCH MCHC RDW Plt Count MPV Neut % (Auto) Lymph % (Auto) [place] % (Auto) Eos % (Auto) Baso % (Auto) Neut # (Auto) Lymph # (Auto) [place] # (Auto) Eos # (Auto) Baso # (Auto) WBC Differential Differential Comment PT INR APTT Sodium 144 Potassium 3.8 Chloride 113 H Carbon Dioxide 23.9 Anion Gap 7 BUN 7 Creatinine 0.71 Estimated GFR 88 L POC Glucose 85 Random Glucose 92 Calcium 8.3 L Total Bilirubin 0.2 AST 31 ALT 58 H Alkaline Phosphatase 80 Total Protein 6.7 D Albumin 3.8 Triglycerides 182 H Cholesterol 231 H LDL Cholesterol, Calc 107 H HDL Cholesterol 87.4 H Cholesterol/HDL Ratio 2.64 Salicylates Acetaminophen Less than 2.0 L Serum Alcohol 06/30/18 06/30/18 08:29 12:53 WBC RBC Hgb Hct MCV MCH MCHC RDW Plt Count MPV Neut % (Auto) Lymph % (Auto) [place] % (Auto) Eos % (Auto) Baso % (Auto) Neut # (Auto) Lymph # (Auto) [place] # (Auto) Eos # (Auto) Baso # (Auto) WBC Differential Differential Comment PT INR APTT Sodium Potassium Chloride Carbon Dioxide Anion Gap BUN Creatinine Estimated GFR POC Glucose 93 97 Random Glucose Calcium Total Bilirubin AST ALT Alkaline Phosphatase Total Protein Albumin Triglycerides Cholesterol LDL Cholesterol, Calc HDL Cholesterol Cholesterol/HDL Ratio Salicylates Acetaminophen Serum Alcohol - Imaging Impressions Carotid Doppler Study 06/29/18 00:00 CONCLUSION: 1. Right Internal Carotid Artery: Findings indicate <50% stenosis. 2. Left Internal Carotid Artery: Findings indicate <50% stenosis. Head CT 06/29/18 17:12 CONCLUSION: 1. No acute findings in the brain. . Assessment and Plan - Plan 1. Fioricet overdose Acetaminophen level now is within normal limits. Repeat EKGs are unremarkable per my independent review for any acute changes. Headaches Discussed with neurology who will attempt a trial of Reglan and Benadryl, anticipate discharge tomorrow 2. Right-sided weakness/history of CVA Carotid ultrasounds are negative Neurology does not see the need for MRI at this point as the patient is now asymptomatic. 3. Seizure disorder Continue home Keppra once medications are 4. Depression/anxiety Continue home Lexapro and Xanax 5. Hypertension/hyperlipidemia Continue home medications 6. Adrenal insufficiency Patient reports she was taken off her steroid medications by her it communications specialist Continue outpatient follow-up 7. Pituitary tumor/thyroid nodule Continue outpatient follow-up [facility] Prescription Drug Monitoring Database has been queried and verified prior to prescribing the controlled subsection. Patient is having significant pain caused by her headaches which will last more than 3 days. Trial of alternative treatment options other than prescribed opioids has not helped. I believe that it is medically necessary to treat the patients pain because it is affecting patients ability to return to function.
[2018-07-01] MEDS: Sod Chloride 0.9% Inj 1,000 ML IV.CONT SCH ×3 (01:34→15:13)
[2018-07-01] MEDS: Insulin NovoLOG Aspart Correctional Sugar Inj SQ SCH ×4 (03:57→17:29)
[2018-07-01] MEDS: levETIRAcetam 250 MG Tablet PO SCH ×2 (05:21→13:09)
[2018-07-01] MEDS: Metoprolol Tartrate 50 MG Tablet PO SCH (09:54)
--- NOTE | 2018-07-01 10:34 | P.PNNEU ---
Subjective Subjective Comments: Headache present, off and on. Moderate anxiety is cursing yelling on the phone when I walked in. States she has not received her Xanax or Lexapro. Somewhat tearful admits to moderate amount of stress going on social situations. Active Medications: Active Medications Al Hydroxide/Mg Hydroxide (Milk Of Magnesia Liq) 30 ml PO Q12H PRN PRN Reason: Mild Constipation Aspirin (Aspirin Chew) 81 mg PO DAILY [facility] Last Admin: 07/01/18 09:54 Dose: 81 mg Atorvastatin Calcium (Lipitor) 20 mg PO DAILY [facility] Last Admin: 07/01/18 09:54 Dose: 20 mg Bisacodyl (Dulcolax Supp) 10 mg RECTAL DAILY PRN PRN Reason: SEVERE CONSITIPATION Dextrose (D50w Vial) 50 ml IV.PUSH UNSCH PRN PRN Reason: PER HYPOGLYCEMIA PROTOCOL Diphenhydramine HCl (Benadryl Inj) 25 mg IV.PUSH Q8H [facility] Stop: 07/02/18 23:59 Last Admin: 07/01/18 05:21 Dose: 25 mg Glucagon (Glucagon Inj) 1 mg OTHER PRN PRN PRN Reason: for Hypoglycemia Protocol Sodium Chloride (Ns Inj) 1,000 mls @ 100 mls/hr IV.CONT .Q10H [facility] Last Admin: 07/01/18 05:24 Dose: Not Given Insulin Aspart (Novolog Insulin Correctional Sugar Inj) 0 unit SQ ACHS AND 3AM [facility]; Protocol Last Admin: 07/01/18 08:18 Dose: Not Given Lactulose (Lactulose Liq) 30 ml PO DAILY PRN PRN Reason: SEVERE CONSITIPATION Levetiracetam (Keppra) 250 mg PO Q8HR [facility] Last Admin: 07/01/18 05:21 Dose: 250 mg Metoprolol Tartrate (Lopressor) 25 mg PO DAILY [facility] Last Admin: 07/01/18 09:54 Dose: 25 mg Pantoprazole Sodium (Protonix) 40 mg PO HS [facility] Last Admin: 06/30/18 20:50 Dose: 40 mg Phenobarbital (Phenobarbital) 60 mg PO Q12HR [facility] Stop: 07/02/18 12:00 Last Admin: 07/01/18 09:54 Dose: 60 mg Sennosides (Senokot) 17.2 mg PO Q12H PRN PRN Reason: Moderate Constipation Sodium Chloride (Ns Flush) 2 ml IV.FLUSH BID [facility] Last Admin: 07/01/18 09:55 Dose: Not Given Sodium Chloride (Ns Flush) 2 ml IV.FLUSH PRN PRN PRN Reason: FLUSH AFTER USING IV ACCESS Allergies/Adverse Reactions: Allergies Allergy/AdvReac Type Severity Reaction Status Date / Time penicillin G Allergy Severe Rash Verified 06/29/18 23:10 tramadol Allergy Severe Hives Verified 06/29/18 23:10 sulfamethoxazole Allergy Unknown Hives Verified 06/29/18 23:10 trimethoprim Allergy Unknown Hives Verified 06/29/18 23:10 Review of Systems All other systems reviewed negative except as stated in HPI Physical Exam Vital signs: Vital Signs 06/30/18 12:35 06/30/18 12:50 06/30/18 16:00 Temperature 98.1 F Pulse Rate 67 101 H 59 L Respiratory Rate 18 Blood Pressure 142/79 H Pulse Oximetry 97 06/30/18 18:50 06/30/18 19:44 06/30/18 20:00 Temperature 97.3 F L 98.1 F Pulse Rate 77 72 75 Respiratory Rate 18 17 Blood Pressure 138/84 138/72 Pulse Oximetry 98 97 06/30/18 23:47 07/01/18 00:00 07/01/18 04:00 Temperature 97.8 F 98 F Pulse Rate 63 67 65 Respiratory Rate 16 16 Blood Pressure 134/82 132/78 Pulse Oximetry 99 99 07/01/18 08:00 Temperature 98.3 F Pulse Rate 84 Respiratory Rate 18 Blood Pressure 153/87 H Pulse Oximetry 99 Intake & Output 06/30/18 07/01/18 07/01/18 18:59 06:59 18:59 Intake Total 1772 / 1772 1000 / 1000 Output Total 900 / 900 Balance 1772 / 1772 100 / 100 Weight 55.3 kg Intake: IV 1052 / 1052 1000 / 1000 NS Inj 1,000 ML @ 100 mls/hr IV 1000 / 1000 1000 / 1000 .CONT .Q10H [facility] Rx#:[id number] Reglan Inj 10 MG In NS Inj 50 52 / 52 ML @ 104 mls/hr IV.SIG TID ONE Rx#:[id number] Oral 720 / 720 Output: Urine 900 / 900 Other: # Voids 5 # Bowel Movements 1 Narrative: Gen.: No acute distress, crying at times the interview somewhat histrionic Head: Normocephalic. Atraumatic. HEENT: Pupils equal round and reactive to light. Abdomen: Soft, nontender, nondistended. Musculoskeletal: No gross deformities. No edema. Skin: No obvious rashes or erythema. Neuro: Awake alert oriented 3, anxious tearful at times, articulate extraocular movements intact no facial asymmetry moving all limbs to gravity - Constitutional no acute distress - Routine HEENT Exam Head: Present: normocephalic Eye: Present: EOMI Objective Laboratory Results - last 24 hr 06/30/18 06/30/18 06/30/18 01:57 12:53 17:51 POC Glucose 97 97 Hemoglobin A1c 5.8 06/30/18 07/01/18 20:48 03:54 POC Glucose 87 83 Hemoglobin A1c Review/Management - Diagnosis (1) Depression Code(s): F32.9 - Major depressive disorder, single episode, unspecified Status : Acute Current Visit: Yes (2) PTSD (post-traumatic stress disorder) Code(s): F43.10 - Post-traumatic stress disorder, unspecified Status: Acute Current Visit: Yes (3) Epilepsy Code(s): G40.909 - Epilepsy, unspecified, not intractable, without status epilepticus Status: Acute Current Visit: No (4) Migraine Code(s): G43.909 - Migraine, unspecified, not intractable, without status migrainosus Status: Acute Current Visit: Yes (5) Back pain Code(s): M54.9 - Dorsalgia, unspecified Status: Acute Current Visit: No (6) Chronic daily headache Code(s): R51 - Headache Status: Acute Current Visit: Yes (7) Anxiety Code(s): F41.9 - Anxiety disorder, unspecified Status: Acute Current Visit: Yes (8) Chronic pain syndrome Code(s): G89.4 - Chronic pain syndrome Status: Acute Current Visit: Yes - Review/Management Plan: Chronic daily headaches for years with recurrent exacerbations. This may be medication induced headache secondary to chronic Fioricet use Alternate medications tried: She states Elavil made her sleepy, Depakote and Topamax did not work. She is followed by outpatient neurologist in outpatient pain management and receives hydrocodone which she takes 3 times a day and has received MARSHA injections. Recommendations DC today Restart her Xanax and Lexapro Told her she needs to discontinue Fioricet Can give her a prescription for phenobarbital 60 mg p.o. twice daily for 1 week to help from potential withdrawal from Fioricet She is to follow-up with her primary care physician, outpatient neurologist, psychiatrist and outpatient pain management (5) Back pain Qualifiers: Back pain location: back pain in unspecified location Chronicity: chronic Back pain laterality: bilateral Qualified Code(s): M54.9 - Dorsalgia, unspecified; G89.29 - Other chronic pain
--- NOTE | 2018-07-01 15:43 | MR ---
EXAM DATE: 07/01/2018 3:32 PM EDT AGE/SEX: 47 years / Female INDICATIONS: Cephalgia. Overdose of pain meds. CLINICAL DATA: This is the patient's initial encounter. Patient reports that signs and symptoms have been present for 2 days and indicates a pain score of 4/10. MEDICAL/SURGICAL HISTORY: Seizures. Known pituitary tumor. Hysterectomy. section. Le ft ear tumor removal. [place] [facility] [place]/2018. . TECHNIQUE: Multiplanar, multisequence examination of the brain was performed without contrast. FINDINGS: Cerebrum: The ventricles are normal for age. No evidence of midline shift, mass lesion, hemorrhage or acute infarction. No extraaxial fluid collections are seen. The pituitary gland and suprasellar cistern are normal in configuration. White Matter: Small periventricular and basal ganglia hyperintensities unchanged on the right. Posterior Fossa: The cerebellum and brainstem are intact. The 4th ventricle is midline. The cerebel lopontine angle is unremarkable. The cerebellar tonsils are normal in position. Diffusion Imaging: No focal areas of restricted diffusion are seen. No evidence of acute infarction . Extracranial: The visualized portions of the orbits and paranasal sinuses are unremarkable. CONCLUSION: No acute intracranial findings. Electronically signed by: Og Hlil MD 07/01/2018 3:42 PM EDT
--- NOTE | 2018-07-01 16:32 | P.PN ---
Subjective Interval history: Nursing denies any deterioration since last night. Patient thinks she is little better today. Says that the weakness she has had on her right side has been there for a few weeks. Physical Exam Vital signs: Vital Signs 06/30/18 18:50 06/30/18 19:44 06/30/18 20:00 Temperature 97.3 F L 98.1 F Pulse Rate 77 72 75 Respiratory Rate 18 17 Blood Pressure 138/84 138/72 Pulse Oximetry 98 97 06/30/18 23:47 07/01/18 00:00 07/01/18 04:00 Temperature 97.8 F 98 F Pulse Rate 63 67 65 Respiratory Rate 16 16 Blood Pressure 134/82 132/78 Pulse Oximetry 99 99 07/01/18 08:00 Temperature 98.3 F Pulse Rate 68 Respiratory Rate 18 Blood Pressure 153/87 H Pulse Oximetry 99 Intake & Output 06/30/18 07/01/18 07/01/18 18:59 06:59 18:59 Intake Total 1772 / 1772 1000 / 1000 Output Total 900 / 900 Balance 1772 / 1772 100 / 100 Weight 55.3 kg Intake: IV 1052 / 1052 1000 / 1000 NS Inj 1,000 ML @ 100 mls/hr IV 1000 / 1000 1000 / 1000 .CONT .Q10H [facility] Rx#:[id number] Reglan Inj 10 MG In NS Inj 50 52 / 52 ML @ 104 mls/hr IV.SIG TID ONE Rx#:[id number] Oral 720 / 720 Output: Urine 900 / 900 Other: # Voids 5 # Bowel Movements 1 Narrative: 2+ patellar reflexes bilaterally 4/5 strength in proximal right sided upper and lower extremities wears it is 5/ 5 proximal upper and lower extremity strength on the left side No facial droop, no slurred speech No acute distress today, appropriate mood, calm demeanor Results - Labs CBC & Chem 7: 06/30/18 01:57 06/30/18 01:57 Laboratory Results - last 24 hr 06/30/18 06/30/18 07/01/18 17:51 20:48 03:54 POC Glucose 97 87 83 07/01/18 11:59 POC Glucose 105 - Imaging Impressions Head MRI 07/01/18 00:00 CONCLUSION: No acute intracranial findings. Assessment and Plan - Plan 1. Fioricet overdose Now stable toxic window at this point. Headaches Improved status post Reglan and Benadryl, will discharge the patient on phenobarbital per neurology to be taking over 1 week's time 2. Right-sided weakness/history of CVA MRI is negative for any acute findings. 3. Seizure disorder Continue home Keppra once medications are 4. Depression/anxiety Continue home Lexapro and Xanax 5. Hypertension/hyperlipidemia Continue home medications 6. Adrenal insufficiency Patient reports she was taken off her steroid medications by her operations team leader Continue outpatient follow-up 7. Pituitary tumor/thyroid nodule Continue outpatient follow-up Patient has met maximal benefit from hospitalization and is clinically stable for discharge. [facility] Prescription Drug Monitoring Database has been queried and verified prior to prescribing the controlled subsection. Patient is having significant pain caused by her headaches which will last more than 3 days. Trial of alternative treatment options other than prescribed opioids has not helped. I believe that it is medically necessary to treat the patients pain because it is affecting patients ability to return to function.
--- NOTE | 2018-07-02 08:55 | P.DS ---
Date of admission: 06/29/18 19:07 Primary care physician: UNKNOWN Brief History from admission: 47-year-old female with past medical history significant for adrenal deficiency , known pituitary tumor, thyroid nodule, seizure disorder, coronary artery disease, hypertension, hyperlipidemia, depression/anxiety, history of previous CVA and history of ovarian cancer presents to the emergency department for the evaluation of Fioricet overdose. The patient reports she has had a severe headache for approximately 4 days. She states she took about 15 Fioricet over the past day and a half. Her ultimately ended up taking the medication from her and calling 911. She states she has had accompanying right-sided weakness for the past 2 days. She denies any visual changes. No nausea/ vomiting/diarrhea. Positive sensitivity to light. No chest pain or shortness of breath. DS: Medications - Discharge Medications Prescriptions: metoprolol tartrate 25 mg PO BID #60 tab phenobarbital 60 mg PO Q12HR #14 tab DS: Summary Hospital Course: Patient was admitted. Maintain hemodynamic stability as her acetaminophen levels stabilized, poison control had no further recommendations otherwise. Neurological workup was unremarkable for any acute strokes. Neurology had been consulted, deemed the patient stable for discharge. Recommended phenobarbital to be taken over 1 week to address Fioricet withdrawal. Patient has met maximal benefit from hospitalization and is clinically stable for discharge. - Time Spent with Patient Total time spent providing and/or coordinating discharge services: Less than 30 minutes - Quality: VTE Deep Vein Thrombosis/Pulmonary Embolism Present on Admission: No Exam Vital signs: Vital Signs 07/01/18 12:00 Pulse Rate 67 Intake & Output 07/01/18 07/02/18 07/02/18 18:59 06:59 18:59 Intake Total 1000 / 1000 Balance 1000 / 1000 Intake: IV 1000 / 1000 NS Inj 1,000 ML @ 100 mls/hr IV 1000 / 1000 .CONT .Q10H [facility] Rx#:[id number] Results Procedures completed during hospitalization: . Labs on day of discharge: Labs from last 24 hours 07/01/18 07/01/18 07/01/18 17:26 11:59 08:16 POC Glucose 88 105 82 - Impressions ITS Impressions Carotid Doppler Study 06/29/18 00:00 CONCLUSION: 1. Right Internal Carotid Artery: Findings indicate <50% stenosis. 2. Left Internal Carotid Artery: Findings indicate <50% stenosis. Head CT 06/29/18 17:12 CONCLUSION: 1. No acute findings in the brain. . Head MRI 07/01/18 00:00 CONCLUSION: No acute intracranial findings. Discharge Plan - Discharge Disposition Patient Disposition: 01 Discharge Home - Discharge Condition Condition: Stable - Discharge Order Discharge Orders: Discharge Order (Routine); Ordered 07/01/18 Ordered By: Bro Herrera - Discharge Details Anticipated Discharge Date: 06/29/18 - Physicians Team Primary Care Provider: UNKNOWN, Attending Provider: Bro Herrera Other Providers: Mj Palencia MD ; Kusum Noe
== END 2018-07-01 18:20 | disposition home or self-care (01) ==
LOC: NEPE 16:36 → N04 18:00 → NEDA 19:07 → N04 20:57 → NEDA 21:27 → N04 22:21
PROVIDERS: ADMIT Hospitalist; ATTEND Hospitalist